=== PATIENT | female | born 1990 | race African-American/Black ===

== ENCOUNTER 2016-12-03 14:32 | Emergency (ER) | payer OTHER ==
[~2016-12-03] VITALS: Ht 162.6 cm; Wt 68.0 kg
[~2016-12-03 14:32] MED LIST: OXYC-323 PO
--- NOTE | 2016-12-03 14:41 | PHYS DOC ---
Past Medical History Past Medical History: No Pertinent History Past Surgical History: Other Additional Past Surgical Histo: ectopic Alcohol Use: None Drug Use: Marijuana Adult General Chief Complaint Chief Complaint: ABDOMINAL PAIN HPI HPI Patient is a 26 year old female presenting to the emergency department for evaluation of abdominal pain that has been going on for 7 days straight. She says it is in her lower abdomen diffusely and associated with nausea vomiting and constipation. She says it is sharp crampy pain and is present all the time and does not get better or worse with anything. She was seen at [facility] days ago and she reports having a CT scan that was unremarkable and was discharged with naproxen and Zofran. She says that her pain has persisted and worsened. She says that she is finishing her period but she denies any vaginal discharge or fevers chills dysuria or hematuria. She reports having similar pain in March of last year when she had her gallbladder taken out. She has also had several surgeries for ectopic . Review of Systems Review of Systems Constitutional: Denies fever or chills [] Eyes: Denies change in visual acuity, redness, or eye pain [] HENT: Denies nasal congestion or sore throat [] Respiratory: Denies cough or shortness of breath [] Cardiovascular: No additional information not addressed in HPI [] GI: + abdominal pain, nausea, vomiting. No bloody stools or diarrhea [] : Denies dysuria or hematuria [] Musculoskeletal: Denies back pain or joint pain [] Integument: Denies rash or skin lesions [] Neurologic: Denies headache, focal weakness or sensory changes [] Current Medications Current Medications Current Medications Medications (Trade) Dose Ordered Sig/Geoff Start Time Stop Time Status Last Admin Dose Admin Azithromycin 1000 mg 1,000 mg 1X ONCE 12/03/16 16:15 12/03/16 16:21 DC 12/03/16 16:40 1,000 MG Ceftriaxone Sodium/Sodium Chloride (Rocephin/Iv Sodium Chloride 0.9% 50ml) 50 ml @ 100 mls/hr Q24H 12/04/16 17:00 Ceftriaxone Sodium (Rocephin 1gm Ivpb For Omni) 50 ml @ 100 mls/hr 1X ONCE 12/03/16 16:30 12/03/16 16:59 DC 12/03/16 16:40 100 MLS/HR Diphenhydramine HCl 25 mg 25 mg 1X ONCE 12/03/16 16:30 12/03/16 16:31 DC 12/03/16 16:40 25 MG Iohexol (Omnipaque 240 Mg/ml) 50 ml 1X ONCE 12/03/16 15:30 12/03/16 15:31 DC 12/03/16 15:30 50 ML Iohexol 75 ml 75 ml 1X ONCE 12/03/16 15:30 12/03/16 15:31 DC 12/03/16 15:30 75 ML Ketorolac Tromethamine (Toradol) 30 mg 1X ONCE 12/03/16 15:00 12/03/16 15:12 DC 12/03/16 15:17 30 MG Morphine Sulfate 5 mg 1X ONCE 12/03/16 16:30 12/03/16 16:31 DC 12/03/16 16:30 5 MG Ondansetron HCl (Zofran) 8 mg 1X ONCE 12/03/16 15:00 12/03/16 15:12 DC 12/03/16 15:17 8 MG Potassium Chloride (Klor-Con) 40 meq 1X ONCE 12/03/16 17:15 12/03/16 17:16 DC 12/03/16 18:22 40 MEQ Prochlorperazine Edisylate (Compazine) 10 mg 1X ONCE 12/03/16 16:30 12/03/16 16:31 DC 12/03/16 16:40 10 MG Sodium Chloride (Iv Sodium Chloride 0.9% 1000ml Bag) 1,000 ml @ 0 mls/hr 1X ONCE 12/03/16 16:45 12/03/16 16:48 DC 12/03/16 18:21 1,000 MLS/HR Allergies Allergies Allergies Coded Allergies Type Severity Reaction Last Updated Verified oxycodone Allergy Intermediate 10/30/14 No peanut Allergy Intermediate 10/30/14 No Physical Exam Physical Exam Constitutional: Well developed, well nourished, no acute distress, non-toxic appearance. [] HENT: Normocephalic, atraumatic, bilateral external ears normal, oropharynx moist, no oral exudates, nose normal. [] Eyes: PERRLA, EOMI, conjunctiva normal, no discharge. [] Neck: Normal range of motion, no tenderness, supple, no stridor. [] Cardiovascular:Heart rate regular rhythm, no murmur [] Lungs & Thorax: Bilateral breath sounds clear to auscultation [] Abdomen: Bowel sounds normal, soft, positive diffuse lower abdominal tenderness with no rebound or guarding, no masses, no pulsatile masses. [employer] exam revealed thick yellow discharge. + CMT and L adnexal tenderness. Skin: Warm, dry, no erythema, no rash. [] Back: No tenderness, no CVA tenderness. [] Extremities: No tenderness, no cyanosis, no clubbing, ROM intact, no edema. [] Neurologic: Alert and oriented X 3, normal motor function, normal sensory function, no focal deficits noted. [] Current Patient Data Vital Signs Vital Signs Date Time Temp Pulse Resp B/P Pulse Ox O2 Delivery O2 Flow Rate FiO2 12/03/16 19:20 64 17 104/60 99 Room Air 12/03/16 14:46 98.4 98.4 Lab Values Laboratory Tests Test 12/03/16 13:44 12/03/16 14:30 12/03/16 15:00 POC Urine HCG, Qualitative Hcg negative (Negative) Urine Collection Type Unknown Urine Color Yuliana Urine Clarity Clear Urine pH 6.5 Urine Specific [place] >=1.030 Urine Protein 30mg/dL (NEG-TRACE) Urine Glucose (UA) Negativemg/dL (NEG) Urine Ketones (Stick) 40mg/dL (NEG) Urine Blood Negative (NEG) Urine Nitrite Negative (NEG) Urine Bilirubin Small (NEG) Urine Urobilinogen Dipstick 1.0mg/dL (0.2 mg/dL) Urine Leukocyte Esterase Negative (NEG) Urine RBC 0/HPF (0-2) Urine WBC 1-4/HPF (0-4) Urine Squamous Epithelial Cells Many/LPF Urine Bacteria Moderate/HPF (0-FEW) Urine Mucus Marked/LPF White Blood Count 6.8x10^3/uL (4.0-11.0) Red Blood Count 5.01x10^6/uL (3.50-5.40) Hemoglobin 14.9g/dL (12.0-15.5) Hematocrit 44.9% (36.0-47.0) Mean Corpuscular Volume 90fL (79-100) Mean Corpuscular Hemoglobin 30pg (25-35) Mean Corpuscular Hemoglobin Concent 33g/dL (31-37) Red Cell Distribution Width 13.1% (11.5-14.5) Platelet Count 262x10^3/uL (140-400) Neutrophils (%) (Auto) 55% (31-73) Lymphocytes (%) (Auto) 32% (24-48) Monocytes (%) (Auto) 11% (0-9) H Eosinophils (%) (Auto) 2% (0-3) Basophils (%) (Auto) 0% (0-3) Neutrophils # (Auto) 3.8x10^3uL (1.8-7.7) Lymphocytes # (Auto) 2.1x10^3/uL (1.0-4.8) Monocytes # (Auto) 0.8x10^3/uL (0.0-1.1) Eosinophils # (Auto) 0.1x10^3/uL (0.0-0.7) Basophils # (Auto) 0.0x10^3/uL (0.0-0.2) Sodium Level 138mmol/L (136-145) Potassium Level 3.4mmol/L (3.5-5.1) L Chloride Level 101mmol/L (98-107) Carbon Dioxide Level 27mmol/L (21-32) Anion Gap 10 (6-14) Blood Urea Nitrogen 13mg/dL (7-20) Creatinine 0.9mg/dL (0.6-1.0) Estimated GFR (Cockcroft-Gault) 93.1 BUN/Creatinine Ratio 14 (6-20) Glucose Level 91mg/dL (70-99) Calcium Level 9.1mg/dL (8.5-10.1) Total Bilirubin 0.8mg/dL (0.2-1.0) Aspartate Amino Transferase (AST) 29U/L (15-37) Alanine Aminotransferase (ALT) 58U/L (14-59) Alkaline Phosphatase 47U/L (46-116) Total Protein 8.1g/dL (6.4-8.2) Albumin 4.0g/dL (3.4-5.0) Albumin/Globulin Ratio 1.0 (1.0-1.7) Lipase 166U/L (73-393) Laboratory Tests 12/03/16 15:00 Laboratory Tests 12/03/16 15:00 Microbiology 12/03/16 Wet Prep - Final, Complete Microbiology 12/03/16 Wet Prep - Final, Complete EKG EKG [] Radiology/Procedures Radiology/Procedures PROCEDURE CT of the abdomen and pelvis with contrast HISTORY Lower abdominal pain for 6 days. Previous cholecystectomy and history of stent. TECHNIQUE Following injection of 75 cc of Omnipaque 300 IV and administration of oral contrast, images were obtained through the abdomen and pelvis. One or more of the following individualized dose reduction techniques were utilized for this examination: 1. Automated exposure control; 2. Adjustment of the mA and/or kV according to patient size; 3. Use of iterative reconstruction technique. COMPARISON December 23, 2015 exam FINDINGS The liver and spleen are normal in size without focal lesions. The pancreas, adrenal glands, and kidneys are unremarkable. No free fluid or adenopathy is seen. There has been a cholecystectomy. The bowel loops are unremarkable. The appendix is normal. No pelvic mass is seen. The uterus is unremarkable. IMPRESSION Negative CT of the abdomen and pelvis with contrast. Electronically signed by: Jayla Pinedo (Dec 03, 2016 16:51:04) DICTATED and SIGNED BY: JAYLA PINEDO MD DATE: 12/03/16 165 PROCEDURE Pelvic ultrasound with endovaginal imaging. HISTORY Lower abdominal pain. TECHNIQUE Transabdominal imaging was performed for initial evaluation of the pelvis. Endovaginal imaging was performed for optimal characterization of the endometrium. COMPARISON CT abdomen pelvis December 03, 2016. FINDINGS Transabdominal imaging: Uterus measures 8.1 centimeters in length. Endometrial thickness is 5 millimeters, within normal limits. No uterine masses are seen. Neither ovary is well seen with transabdominal imaging. Endovaginal imaging: Uterus measures 7.4 centimeters in length. No uterine masses are seen. Endometrial thickness is within normal limits at 1 millimeter. Right ovary measures 2.3 x 1.6 x 2.7 centimeters and demonstrates a few physiologic follicles. Left ovary measures 2.6 x 1.8 x 1.7 centimeters and demonstrates several small physiologic follicles. Both ovaries demonstrate normal vascular flow upon Doppler interrogation and are without evidence of torsion. Trace amount of physiologic free fluid is present in the pelvis. IMPRESSION Unremarkable pelvic ultrasound. Electronically signed by: Steven Preciado MD (Dec 03, 2016 19:39:51) DICTATED and SIGNED BY: STEVEN PRECIADO MD DATE: 04/29/17 1939 Course & Med Decision Making Course & Med Decision Making Patient with nonspecific abdominal pain nausea and vomiting. She is crying and appears uncomfortable so I will get a CT with IV and oral contrast check labs and urine do a pelvic exam and reassess. Patient appears to have possible pelvic inflammatory disease on pelvic exam because she has a cervical motion tenderness abnormal discharge and left adnexal tenderness. CT and ultrasound showed no acute surgical pathology. Labs are all very unremarkable as well. She was given multiple doses of pain medications and her repeat abdominal exams are now benign and she is drinking fluids and taking her pills with no difficulty. Given she appears well with normal vital signs benign physical exam and workup she'll be discharged with [place] Zofran Flagyl and told to follow with PCP and/or GI in the next 2-3 days and come back to the ER sooner with any worsening pain fevers vomiting or vaginal concerns. Patient aware and agreeable with plan and verbalized understanding of the above instructions. Dragon Disclaimer Dragon Disclaimer This electronic medical record was generated, in whole or in part, using a voice recognition dictation system. Departure Departure Impression: Primary Impression: Abdominal pain Additional Impressions: Nausea and vomiting Bacterial vaginitis Hypokalemia due to loss of potassium Disposition: HOME, SELF-CARE Condition: GOOD Referrals: NO PCP (PCP) VANCE PERALTA MD Patient Instructions: Bacterial Vaginosis Scripts Metronidazole (Flagyl)500 Mg Tablet1 Tab PO BID #14 TAB Prov:ADRIEL DE SOUZA DO 12/03/16 Ondansetron (Zofran Odt)4 Mg Tab.rapdis1 Tab SL Q8HRS #10 TAB Prov:ADRIEL DE SOUZA DO 12/03/16 Hydrocodone/Apap 5-325 ([place] 5-325 Tablet)1 Each Tablet1 Tab PO PRN Q6HRS PRN PAIN #14 TAB Prov:ADRIEL DE SOUZA DO 12/03/16 Problem Qualifiers Primary Impression: Abdominal pain Abdominal location: lower abdomen, unspecified Qualified Code: R10.30 - Lower abdominal pain, unspecified Additional Impressions: Nausea and vomiting Vomiting type: unspecified Vomiting Intractability: unspecified Qualified Code: R11.2 - Nausea with vomiting, unspecified ADRIEL DE SOUZA DO Dec 03, 2016 14:41
[2016-12-03] MEDS ORDERED: ONDANSETRON PF 4 MG/2 ML VIAL. IV ONE (15:00)
[2016-12-03] MEDS ORDERED: MORPHINE SULFATE 10 MG/ML VIAL. IV ONE ×2 (15:00→16:30)
[2016-12-03] MEDS ORDERED: KETOROLAC TROMETHAMINE 30 MG/ML INJ. IV ONE (15:00)
[2016-12-03] MEDS ORDERED: IV NORMAL SALINE 1000ML BAG 1,000 ML IV ONE ×2 (15:00→16:45)
[2016-12-03 15:14] LABS: BASO % 0 % (0-3); EOS % 2 % (0-3); HEMATOCRIT 44.9 % (36.0-47.0); HEMOGLOBIN 14.9 g/dL (12.0-15.5); LYMPH # 2.1 x10^3/uL (1.0-4.8); LYMPH % 32 % (24-48); MEAN CORPUSCULAR HEMOGLOBIN 30 pg (25-35); MEAN CORPUSCULAR HGB CONC 33 g/dL (31-37); MEAN CORPUSCULAR VOLUME 90 fL (79-100); MONO % 11 % (0-9); NEUT % 55 % (31-73); PLATELET COUNT 262 x10^3/uL (140-400); RED BLOOD COUNT 5.01 x10^6/uL (3.50-5.40); RED CELL DISTRIBUTION WIDTH 13.1 % (11.5-14.5); WHITE BLOOD COUNT 6.8 x10^3/uL (4.0-11.0)
[2016-12-03 15:17] LABS: BILIRUBIN,URINE SMALL (NEG); GLUCOSE,URINE NEGATIVE (NEG); NITRITE,URINE NEGATIVE (NEG); PH,URINE 6.5; PROTEIN,URINE 30 mg/dL (NEG-TRACE)
[2016-12-03] MEDS ORDERED: IOHEXOL 300 MG/ML 75 ML VIAL IV ONE (15:30)
[2016-12-03] MEDS ORDERED: IOHEXOL 240 MG/ML 50ML VIAL. IV ONE (15:30)
[2016-12-03 15:35] LABS: CALCIUM 9.1 mg/dL (8.5-10.1); CREATININE 0.9 mg/dL (0.6-1.0); GFR 93.1; POTASSIUM 3.4 mmol/L (3.5-5.1)
[2016-12-03 15:40] LABS: TOTAL BILIRUBIN 0.8 mg/dL (0.2-1.0); TOTAL PROTEIN 8.1 g/dL (6.4-8.2)
[2016-12-03 15:42] LABS: BACTERIA,URINE MODERATE /HPF (0-FEW); RBC,URINE 0 /HPF (0-2); SQUAMOUS EPITHELIAL CELL,UR MANY /LPF
[2016-12-03] MEDS ORDERED: AZITHROMYCIN 250 MG TABLET. PO ONE (16:15)
[2016-12-03] MEDS ORDERED: diphenhydrAMINE 50 MG/ML VIAL IVP ONE (16:30)
[2016-12-03] MEDS ORDERED: PROCHLORPERAZINE 10 MG/2 ML VIAL. IV ONE (16:30)
--- NOTE | 2016-12-03 16:52 | RAD ---
PROCEDURE CT of the abdomen and pelvis with contrast HISTORY Lower abdominal pain for 6 days. Previous cholecystectomy and history of stent. TECHNIQUE Following injection of 75 cc of Omnipaque 300 IV and administration of oral contrast, images were obtained through the abdomen and pelvis. One or more of the following individualized dose reduction techniques were utilized for this examination: 1. Automated exposure control; 2. Adjustment of the mA and/or kV according to patient size; 3. Use of iterative reconstruction technique. COMPARISON December 23, 2015 exam FINDINGS The liver and spleen are normal in size without focal lesions. The pancreas, adrenal glands, and kidneys are unremarkable. No free fluid or adenopathy is seen. There has been a cholecystectomy. The bowel loops are unremarkable. The appendix is normal. No pelvic mass is seen. The uterus is unremarkable. IMPRESSION Negative CT of the abdomen and pelvis with contrast. Electronically signed by: Jayla Braswell (Dec 03, 2016 16:51:04)
[2016-12-03] MEDS ORDERED: POTASSIUM CHLORIDE 20 MEQ TABLET.ER. PO ONE (17:15)
[2016-12-03 19:20] VITALS: BP 104/60
--- NOTE | 2016-12-03 19:41 | RAD ---
PROCEDURE Pelvic ultrasound with endovaginal imaging. HISTORY Lower abdominal pain. TECHNIQUE Transabdominal imaging was performed for initial evaluation of the pelvis. Endovaginal imaging was performed for optimal characterization of the endometrium. COMPARISON CT abdomen pelvis December 03, 2016. FINDINGS Transabdominal imaging: Uterus measures 8.1 centimeters in length. Endometrial thickness is 5 millimeters, within normal limits. No uterine masses are seen. Neither ovary is well seen with transabdominal imaging. Endovaginal imaging: Uterus measures 7.4 centimeters in length. No uterine masses are seen. Endometrial thickness is within normal limits at 1 millimeter. Right ovary measures 2.3 x 1.6 x 2.7 centimeters and demonstrates a few physiologic follicles. Left ovary measures 2.6 x 1.8 x 1.7 centimeters and demonstrates several small physiologic follicles. Both ovaries demonstrate normal vascular flow upon Doppler interrogation and are without evidence of torsion. Trace amount of physiologic free fluid is present in the pelvis. IMPRESSION Unremarkable pelvic ultrasound. Electronically signed by: Steven Corea MD (Dec 03, 2016 19:39:51)
[2016-12-03] MEDS ORDERED: ONDA4TAB10 SL (19:57)
[2016-12-03] MEDS ORDERED: HYDR-971 PO (19:57)
[2016-12-03] MEDS ORDERED: METR500T PO (19:57)
== END 2016-12-03 20:03 | disposition home or self-care (01) ==
LOC: ER 14:32
DX: R10.30 Lower abdominal pain, unspecified (principal); R11.2 Nausea with vomiting, unspecified; F12.10 Cannabis abuse, uncomplicated; Z88.5 Allergy status to narcotic agent; Z91.010 Allergy to peanuts
CPT/HCPCS: 74177; 76830; 76856; 80053; 81001; 81025; 83690; 85027; J0690; J0780; J1200; J1885; J2270; J2405; J7030; Q0111; Q0144; Q9966; Q9967; 87086; 96365; 96375; 96376; 99285-25

== ENCOUNTER 2017-03-21 12:49 | Emergency (ER) | payer OTHER ==
[~2017-03-21] VITALS: Ht 162.6 cm; Wt 68.0 kg
[~2017-03-21 12:49] MED LIST changes: +HYDR-971 PO; +METR500T PO; +ONDA4TAB10 SL
[2017-03-21 13:12] VITALS: BP 121/64
[2017-03-21] MEDS ORDERED: LIDOCAINE 1% / SOD BICARB 8.4% 20 ML VIAL. IJ ONE (13:15)
[2017-03-21] MEDS ORDERED: SULF1TAB24 PO (14:26)
--- NOTE | 2017-03-21 14:26 | PHYS DOC ---
Past Medical History Past Medical History: Other Additional Past Medical Histor: "TWISTED COLON" Past Surgical History: Cholecystectomy, Other Additional Past Surgical Histo: ectopic Alcohol Use: Rarely Drug Use: Marijuana Adult General Chief Complaint Chief Complaint: ABSCESS HPI HPI Patient is a 26 year old female who presents with an abscess on the left lower extremity for the last 3 weeks. Patient states it opened up and drained a couple days ago. Review of Systems Review of Systems Constitutional: Denies fever or chills [] Musculoskeletal: Denies back pain or joint pain [] Integument: Abscess to the left lower extremity Neurologic: Denies headache, focal weakness or sensory changes [] Current Medications Current Medications Current Medications Medications (Trade) Dose Ordered Sig/Geoff Start Time Stop Time Status Last Admin Dose Admin Lidocaine/Sodium Bicarbonate (Buffered Lidocaine 1%) 20 ml 1X ONCE 03/21/17 13:15 03/21/17 13:16 DC 03/21/17 13:17 20 ML Allergies Allergies Allergies Coded Allergies Type Severity Reaction Last Updated Verified oxycodone Allergy Intermediate 10/30/14 No peanut Allergy Intermediate 10/30/14 No Physical Exam Physical Exam Constitutional: Well developed, well nourished, no acute distress, non-toxic appearance. [] Skin: Dorsal aspect of the Right thigh with 2 indurated areas approximately 3 x 3 cm and 1 x 1 cm. Both of them have surrounding cellulitis. Both of them a warm fluctuant and very tender to touch. The 1 x 1 cm abscess is opened up and draining. Extremities: No tenderness, no cyanosis, no clubbing, ROM intact, no edema. [] Neurologic: Alert and oriented X 3, normal motor function, normal sensory function, no focal deficits noted. [] Psychologic: Affect normal, judgement normal, mood normal. [] Current Patient Data Vital Signs Vital Signs Date Time Temp Pulse Resp B/P (MAP) Pulse Ox O2 Delivery O2 Flow Rate FiO2 03/21/17 13:12 98.2 83 18 99 Room Air 98.2 EKG EKG [] Radiology/Procedures Radiology/Procedures Indication: abscess of the right thigh Procedure: The patient was positioned appropriately. Local anesthesia was 1% buffered lidocaine. An incision was then made over the apex of each lesion and mild to moderate amount of bloody yellow material was expressed. The drainage cavity was irrigated and covered with sterile gauze. The patients tetanus status updated as needed. The patient tolerated the procedure well. Complications: none.[] Course & Med Decision Making Course & Med Decision Making Pertinent Labs and Imaging studies reviewed. (See chart for details) Patient has 2 abscesses on the right lower extremity that were drained by me as noted in procedures. Tetanus up-to-date. Discharged with Bactrim. Lauren Disclaimer Dragtamara Disclaimer This electronic medical record was generated, in whole or in part, using a voice recognition dictation system. Departure Departure Impression: Primary Impression: Abscess of right lower extremity Disposition: HOME, SELF-CARE Condition: STABLE Referrals: NO PCP (PCP) Follow-up with your doctor in one week Patient Instructions: Abscess, Care After Additional Instructions: You had two abscesses on your right lower extremity that were drained in the Ed. Continue to apply warm compresses to the area twice a day. Complete your oral antibiotics. Follow-up with your doctor in 1-2 weeks. Come back to the ED if symptoms worsen. Scripts Sulfamethoxazole/Trimethoprim (BACTRIM DS TABLET) 1 Each Tablet 1 TAB PO BID, #20 TAB Prov: SUN LI APRN 03/21/17 SUN LI APRN Mar 21, 2017 14:26
== END 2017-03-21 14:27 | disposition home or self-care (01) ==
LOC: ER 12:49
DX: L02.415 Cutaneous abscess of right lower limb (principal)
CPT/HCPCS: 10061; 99284-25

== ENCOUNTER 2017-05-22 14:02 | Emergency (ER) | payer OTHER ==
[~2017-05-22] VITALS: Ht 162.6 cm; Wt 77.1 kg
[~2017-05-22 14:02] MED LIST changes: +SULF1TAB24 PO
[2017-05-22] MEDS ORDERED: IV NORMAL SALINE 1000ML BAG 1,000 ML IV ONE (15:15)
[2017-05-22] MEDS ORDERED: ONDANSETRON PF 4 MG/2 ML VIAL. IV ONE (15:15)
[2017-05-22 15:18] LABS: BILIRUBIN,URINE SMALL (NEG); GLUCOSE,URINE NEGATIVE (NEG); NITRITE,URINE NEGATIVE (NEG); PROTEIN,URINE 30 mg/dL (NEG-TRACE); UROBILINOGEN,URINE 0.2 mg/dL (0.2 mg/dL)
[2017-05-22 15:32] LABS: CALCIUM 9.9 mg/dL (8.5-10.1); CREATININE 0.8 mg/dL (0.6-1.0); GFR 105.8; POTASSIUM 3.7 mmol/L (3.5-5.1)
[2017-05-22 15:42] LABS: TOTAL BILIRUBIN 0.6 mg/dL (0.2-1.0); TOTAL PROTEIN 8.1 g/dL (6.4-8.2)
[2017-05-22 15:55] LABS: SQUAMOUS EPITHELIAL CELL,UR MOD /LPF
[2017-05-22 15:56] LABS: BACTERIA,URINE 0 /HPF (0-FEW); RBC,URINE 0 /HPF (0-2); WBC,URINE OCC /HPF (0-4)
[2017-05-22 16:07] LABS: BASO % 0 % (0-3); EOS % 0 % (0-3); HEMOGLOBIN 14.6 g/dL (12.0-15.5); LYMPH # 1.6 x10^3/uL (1.0-4.8); LYMPH % 22 % (24-48); MEAN CORPUSCULAR HEMOGLOBIN 29 pg (25-35); MEAN CORPUSCULAR HGB CONC 33 g/dL (31-37); MEAN CORPUSCULAR VOLUME 87 fL (79-100); MONO % 9 % (0-9); NEUT % 68 % (31-73); PLATELET COUNT 256 x10^3/uL (140-400); RED BLOOD COUNT 5.07 x10^6/uL (3.50-5.40); RED CELL DISTRIBUTION WIDTH 13.7 % (11.5-14.5); WHITE BLOOD COUNT 7.1 x10^3/uL (4.0-11.0)
--- NOTE | 2017-05-22 16:08 | RAD ---
Indication: Right flank pain. Technique: Axial images and coronal and sagittal reformatted images are provided. Comparison is from December 03, 2016. One or more of the following individualized dose reduction techniques were utilized for this examination: 1. Automated exposure control 2. Adjustment of the mA and/or kV according to patient size 3. Use of iterative reconstruction technique Findings: The lung bases are clear. There is no pleural effusion. The heart is not enlarged. Solid organ evaluation is limited without contrast. Liver is unremarkable. Gallbladder is surgically absent. Spleen is not enlarged. Pancreas and adrenals are unremarkable. No obstructing or nonobstructing calculus is identified. Neither ureter is dilated. Neither ureter can be followed in its entirety. Aorta is normal caliber. Lack of IV or oral contrast and its evaluation of bowel. There is no small bowel obstruction or mural thickening. Normal appendix is noted. There are a few diverticula in the colon. There are no findings of diverticulitis. There is no bladder calculus. There are calcified phleboliths. There is no adnexal mass. There is no free pelvic fluid. Impression: 1. No acute abdominal findings. 2. No obstructing or nonobstructing renal calculus. 3. Prior cholecystectomy.
[2017-05-22] MEDS ORDERED: ONDA4TAB10 SL (17:25)
--- NOTE | 2017-05-22 17:25 | PHYS DOC ---
Past Medical History Past Medical History: Other Additional Past Medical Histor: "TWISTED COLON" Past Surgical History: Cholecystectomy, Other Additional Past Surgical Histo: Ectopic,Twisted colon Additional Information: Smokes about 2-3 cigs/day. Alcohol Use: Rarely Drug Use: Marijuana Social History Narrative: Last smoked Monday-5 days ago. Adult General Chief Complaint Chief Complaint: ABDOMINAL PAIN HPI HPI Patient is a 27 year old F who presents with abdominal pain for the past 3 days. Patient complains of increasing abdominal pain with nausea and vomiting and no diarrhea. Patient states the abdominal pain is to her lower abdomen and nothing increases or decreases the pain. Patient denies any fevers. Patient denies any dysuria. Patient states she's had a previous appendectomy and ectopic . Patient denies any chest pain shortness of breath. Patient has no other complaints. Review of Systems Review of Systems GEN: Denies fevers, chills, sweats HEENT: Denies blurred vision, sore throat CV: Denies chest pain RESP: Denies shortness of air, cough GI: Abdominal pain with nausea and vomiting NEURO: Denies confusion, dizziness MSK: Denies weakness, joint pain/swelling Current Medications Current Medications Current Medications Medications (Trade) Dose Ordered Sig/Geoff Start Time Stop Time Status Last Admin Dose Admin Ondansetron HCl (Zofran) 4 mg 1X ONCE 05/22/17 15:15 05/22/17 15:16 DC 05/22/17 16:31 4 MG Sodium Chloride 1,000 ml @ 1,000 mls/hr 1X ONCE 05/22/17 15:15 05/22/17 16:14 DC 05/22/17 16:31 1,000 MLS/HR Allergies Allergies Allergies Coded Allergies Type Severity Reaction Last Updated Verified Iodinated Contrast- Oral and IV Dye Allergy Intermediate Shortness of breath 05/22/17 Yes oxycodone Allergy Intermediate 10/30/14 No peanut Allergy Intermediate 10/30/14 No Physical Exam Physical Exam GEN.: No apparent distress. Alert and oriented. HEENT: Head is normocephalic, atraumatic NECK: Supple. LUNGS: CTAB. HEART: RRR, S1, S2 present. Peripheral pulses intact ABDOMEN: Soft, mild tenderness palpation to the left lower and right lower quadrant with no rebound tenderness, no abdominal distention and no guarding. Positive bowel sounds. EXTREMITIES: Without any cyanosis. NEUROLOGIC: Normal speech, normal tone PSYCHIATRIC: Normal affect, normal mood. SKIN: No ulcerations Current Patient Data Vital Signs Vital Signs Date Time Temp Pulse Resp B/P (MAP) Pulse Ox O2 Delivery O2 Flow Rate FiO2 05/22/17 16:32 56 16 101/60 (74) 98 Room Air 05/22/17 14:18 98.8 98.8 Lab Values Laboratory Tests Test 05/22/17 14:19 05/22/17 14:22 05/22/17 14:41 05/22/17 15:50 Urine Collection Type Unknown Urine Color Yuliana Urine Clarity Cloudy Urine pH 6.0 Urine Specific [place] 1.025 Urine Protein 30 mg/dL (NEG-TRACE) Urine Glucose (UA) Negative mg/dL (NEG) Urine Ketones (Stick) >=80 mg/dL (NEG) Urine Blood Moderate (NEG) Urine Nitrite Negative (NEG) Urine Bilirubin Small (NEG) Urine Urobilinogen Dipstick 0.2 mg/dL (0.2 mg/dL) Urine Leukocyte Esterase Small (NEG) Urine RBC 0 /HPF (0-2) Urine WBC Occ /HPF (0-4) Urine Squamous Epithelial Cells Mod /LPF Urine Bacteria 0 /HPF (0-FEW) Urine Mucus Marked /LPF POC Urine HCG, Qualitative Hcg negative (Negative) Sodium Level 137 mmol/L (136-145) Potassium Level 3.7 mmol/L (3.5-5.1) Chloride Level 99 mmol/L (98-107) Carbon Dioxide Level 23 mmol/L (21-32) Anion Gap 15 (6-14) H Blood Urea Nitrogen 13 mg/dL (7-20) Creatinine 0.8 mg/dL (0.6-1.0) Estimated GFR (Cockcroft-Gault) 105.8 BUN/Creatinine Ratio 16 (6-20) Glucose Level 95 mg/dL (70-99) Calcium Level 9.9 mg/dL (8.5-10.1) Total Bilirubin 0.6 mg/dL (0.2-1.0) Aspartate Amino Transferase (AST) 25 U/L (15-37) Alanine Aminotransferase (ALT) 34 U/L (14-59) Alkaline Phosphatase 48 U/L (46-116) Total Protein 8.1 g/dL (6.4-8.2) Albumin 4.0 g/dL (3.4-5.0) Albumin/Globulin Ratio 1.0 (1.0-1.7) Lipase 226 U/L (73-393) White Blood Count 7.1 x10^3/uL (4.0-11.0) Red Blood Count 5.07 x10^6/uL (3.50-5.40) Hemoglobin 14.6 g/dL (12.0-15.5) Hematocrit 44.0 % (36.0-47.0) Mean Corpuscular Volume 87 fL (79-100) Mean Corpuscular Hemoglobin 29 pg (25-35) Mean Corpuscular Hemoglobin Concent 33 g/dL (31-37) Red Cell Distribution Width 13.7 % (11.5-14.5) Platelet Count 256 x10^3/uL (140-400) Neutrophils (%) (Auto) 68 % (31-73) Lymphocytes (%) (Auto) 22 % (24-48) L Monocytes (%) (Auto) 9 % (0-9) Eosinophils (%) (Auto) 0 % (0-3) Basophils (%) (Auto) 0 % (0-3) Neutrophils # (Auto) 4.9 x10^3uL (1.8-7.7) Lymphocytes # (Auto) 1.6 x10^3/uL (1.0-4.8) Monocytes # (Auto) 0.6 x10^3/uL (0.0-1.1) Eosinophils # (Auto) 0.0 x10^3/uL (0.0-0.7) Basophils # (Auto) 0.0 x10^3/uL (0.0-0.2) Laboratory Tests 05/22/17 15:50 Laboratory Tests 05/22/17 14:41 EKG EKG [] Radiology/Procedures Radiology/Procedures CT scan abdomen pelvis: Impression: 1. No acute abdominal findings. 2. No obstructing or nonobstructing renal calculus. 3. Prior cholecystectomy.[] Course & Med Decision Making Course & Med Decision Making Pertinent Labs and Imaging studies reviewed. (See chart for details) ED course: Patient was seen and examined in the emergency room CBC, CMP, lipase, UA, and urine , CT scan abdomen pelvis without contrast were ordered along with 1 L normal saline and for Motrin and Zofran. 1720: Patient was reevaluated in which she was feeling much better and is ready go home. Discussed CT findings and lab results with the patient and recommended short-term follow-up with PCP in one to 2 days. Stated that we would send the patient home with some Zofran for her nausea and vomiting. MDM: After reviewing the chart, CC/HPI/PMH, physical exam, [lab results], [ radiological results], I do not believe the patient has an intra-abdominal emergency warranting further workup and/or admission at this time. I believe the patient is stable for discharge with symptomatic treatment with Zofran ODT and short-term follow-up with her PCP in one to 2 days. Additional verbal discharge instructions were provided to the patient and that if symptoms get worse or any new symptoms arise that are worrisome to the patient she is to return to the emergency room immediately [] Dragon Disclaimer Dragon Disclaimer This electronic medical record was generated, in whole or in part, using a voice recognition dictation system. Departure Departure Impression: Primary Impression: Abdominal pain Additional Impression: Nausea and vomiting Disposition: 01 HOME, SELF-CARE Condition: STABLE Referrals: NO PCP (PCP) Patient Instructions: Nausea and Vomiting, [id number] Additional Instructions: Please follow-up with your family physician in the next one to 2 days Scripts Ondansetron (ZOFRAN ODT) 4 Mg Tab.rapdis 1 TAB SL Q8HRS, #10 TAB Prov: MARTHA HEART DO 05/22/17 Problem Qualifiers MARTHA HEART DO May 22, 2017 17:25
[2017-05-22 18:20] VITALS: BP 106/58
== END 2017-05-22 18:26 | disposition home or self-care (01) ==
LOC: ER 14:02
DX: R10.31 Right lower quadrant pain (principal); R11.2 Nausea with vomiting, unspecified; Z90.49 Acquired absence of other specified parts of digestive tract; F17.210 Nicotine dependence, cigarettes, uncomplicated; Z91.041 Radiographic dye allergy status; Z88.5 Allergy status to narcotic agent; Z91.010 Allergy to peanuts
CPT/HCPCS: 36415; 74176; 80053; 81001; 81025; 83690; 85025; 87086; 96361; 96374; 99285; J2405; J7030

== ENCOUNTER 2017-05-23 11:37 | Inpatient (IN) | payer OTHER ==
[~2017-05-23] VITALS: Ht 162.6 cm; Wt 72.6 kg
[2017-05-23] MEDS ORDERED: IV NORMAL SALINE 1000ML BAG 1,000 ML IV SCH (12:09)
--- NOTE | 2017-05-23 12:09 | PHYS DOC ---
Past Medical History Past Medical History: Other Additional Past Medical Histor: "TWISTED COLON" Past Surgical History: Cholecystectomy, Other Additional Past Surgical Histo: Ectopic,Twisted colon Alcohol Use: Rarely Drug Use: Marijuana Adult General Chief Complaint Chief Complaint: ABDOMINAL PAIN HPI HPI Patient is a 27 year old -[place] female who presents with left upper quadrant pain. She states his been going on for several days and the she was seen yesterday had a CAT scan that was negative. She states the pain came back. This morning the epigastric versus left quadrant, she states she's had some nausea vomiting without any blood in it, she's also had some liquid stools. She denies any fevers or chills. She states she's had her gallbladder removed in the past in addition to an ectopic . Review of Systems Review of Systems Constitutional: Denies fever or chills [] Eyes: Denies change in visual acuity, redness, or eye pain [] HENT: Denies nasal congestion or sore throat [] Respiratory: Denies cough or shortness of breath [] Cardiovascular: No additional information not addressed in HPI [] GI: Positive for abdominal pain, nausea, vomiting, Denies bloody stools or diarrhea [] : Denies dysuria or hematuria [] Musculoskeletal: Denies back pain or joint pain [] Integument: Denies rash or skin lesions [] Neurologic: Denies headache, focal weakness or sensory changes [] Endocrine: Denies polyuria or polydipsia [] Current Medications Current Medications Current Medications Medications (Trade) Dose Ordered Sig/Geoff Start Time Stop Time Status Last Admin Dose Admin Dextrose/Sodium Chloride 1,000 ml @ 100 mls/hr 1X ONCE 05/23/17 14:45 05/24/17 00:44 05/23/17 14:45 100 MLS/HR Morphine Sulfate 4 mg PRN Q2HR PRN 05/23/17 14:45 05/24/17 14:44 Ondansetron HCl (Zofran) 4 mg PRN Q8HRS PRN 05/23/17 14:45 05/24/17 14:44 Sodium Chloride 1,000 ml @ 1,000 mls/hr Q1H 05/23/17 12:09 05/23/17 13:08 DC 05/23/17 12:19 1,000 MLS/HR Allergies Allergies Allergies Coded Allergies Type Severity Reaction Last Updated Verified Iodinated Contrast- Oral and IV Dye Allergy Intermediate Shortness of breath 05/22/17 Yes oxycodone Allergy Intermediate 10/30/14 No peanut Allergy Intermediate 10/30/14 No Physical Exam Physical Exam Constitutional: Well developed, well nourished, no acute distress, non-toxic appearance. [] HENT: Normocephalic, atraumatic, bilateral external ears normal, oropharynx moist, no oral exudates, nose normal. [] Eyes: PERRLA, EOMI, conjunctiva normal, no discharge. [] Neck: Normal range of motion, no tenderness, supple, no stridor. [] Cardiovascular:Heart rate regular rhythm, no murmur [] Lungs & Thorax: Bilateral breath sounds clear to auscultation [] Abdomen: Bowel sounds normal, soft, mild tender palpation left upper quadrant, no rebound or guarding, no masses, no pulsatile masses. [] Skin: Warm, dry, no erythema, no rash. [] Back: No tenderness, no CVA tenderness. [] Extremities: No tenderness, no cyanosis, no clubbing, ROM intact, no edema. [] Neurologic: Alert and oriented X 3, normal motor function, normal sensory function, no focal deficits noted. [] Psychologic: Affect normal, judgement normal, mood normal. [] Current Patient Data Vital Signs Vital Signs Date Time Temp Pulse Resp B/P (MAP) Pulse Ox O2 Delivery O2 Flow Rate FiO2 05/23/17 15:01 63 20 105/69 (81) 100 Room Air 05/23/17 12:10 97.7 97.7 Lab Values Laboratory Tests Test 05/23/17 12:00 05/23/17 12:04 05/23/17 12:05 Urine Collection Type Unknown Urine Color Yuliana Urine Clarity Cloudy Urine pH 6.0 Urine Specific [place] >=1.030 Urine Protein 30 mg/dL (NEG-TRACE) Urine Glucose (UA) Negative mg/dL (NEG) Urine Ketones (Stick) >=80 mg/dL (NEG) Urine Blood Large (NEG) Urine Nitrite Negative (NEG) Urine Bilirubin Small (NEG) Urine Urobilinogen Dipstick 0.2 mg/dL (0.2 mg/dL) Urine Leukocyte Esterase Trace (NEG) Urine RBC 20-40 /HPF (0-2) Urine WBC 1-4 /HPF (0-4) Urine Squamous Epithelial Cells Few /LPF Urine Bacteria Few /HPF (0-FEW) Urine Mucus Marked /LPF Urine Opiates Screen Neg (NEG) Urine Methadone Screen Neg (NEG) Urine Barbiturates Neg (NEG) Urine Phencyclidine Screen Neg (NEG) Urine Amphetamine/Methamphetamine Neg (NEG) Urine Benzodiazepines Screen Neg (NEG) Urine Cocaine Screen Neg (NEG) Urine Cannabinoids Screen Pos (NEG) Urine Ethyl Alcohol Neg (NEG) POC Urine HCG, Qualitative Hcg negative (Negative) White Blood Count 8.1 x10^3/uL (4.0-11.0) Red Blood Count 5.33 x10^6/uL (3.50-5.40) Hemoglobin 15.6 g/dL (12.0-15.5) H Hematocrit 46.5 % (36.0-47.0) Mean Corpuscular Volume 87 fL (79-100) Mean Corpuscular Hemoglobin 29 pg (25-35) Mean Corpuscular Hemoglobin Concent 34 g/dL (31-37) Red Cell Distribution Width 13.8 % (11.5-14.5) Platelet Count 297 x10^3/uL (140-400) Neutrophils (%) (Auto) 72 % (31-73) Lymphocytes (%) (Auto) 19 % (24-48) L Monocytes (%) (Auto) 8 % (0-9) Eosinophils (%) (Auto) 0 % (0-3) Basophils (%) (Auto) 0 % (0-3) Neutrophils # (Auto) 5.9 x10^3uL (1.8-7.7) Lymphocytes # (Auto) 1.5 x10^3/uL (1.0-4.8) Monocytes # (Auto) 0.7 x10^3/uL (0.0-1.1) Eosinophils # (Auto) 0.0 x10^3/uL (0.0-0.7) Basophils # (Auto) 0.0 x10^3/uL (0.0-0.2) Prothrombin Time 12.9 SEC (11.7-14.0) Prothrombin Time INR 1.0 (0.8-1.1) PTT 30 SEC (24-38) Sodium Level 139 mmol/L (136-145) Potassium Level 3.3 mmol/L (3.5-5.1) L Chloride Level 100 mmol/L (98-107) Carbon Dioxide Level 25 mmol/L (21-32) Anion Gap 14 (6-14) Blood Urea Nitrogen 14 mg/dL (7-20) Creatinine 1.0 mg/dL (0.6-1.0) Estimated GFR (Cockcroft-Gault) 81.7 Glucose Level 102 mg/dL (70-99) H Calcium Level 9.6 mg/dL (8.5-10.1) Total Bilirubin 0.6 mg/dL (0.2-1.0) Direct Bilirubin 0.2 mg/dL (0.0-0.2) Aspartate Amino Transferase (AST) 43 U/L (15-37) H Alanine Aminotransferase (ALT) 65 U/L (14-59) H Alkaline Phosphatase 50 U/L (46-116) Creatine Kinase 60 U/L (26-192) Total Protein 9.1 g/dL (6.4-8.2) H Albumin 4.2 g/dL (3.4-5.0) Lipase 224 U/L (73-393) Laboratory Tests 05/23/17 12:05 Laboratory Tests 05/23/17 12:05 EKG EKG [] Radiology/Procedures Radiology/Procedures [facility] [address] [place] [address] IMAGING REPORT Signed PATIENT: JEET ASCENCIO ACCOUNT: [id number] : 1990 LOCATION: ER AGE: 27 SEX: F EXAM STATUS: REG ER ORD. PHYSICIAN: DINORAH PALACIO MD REASON: abd pain.nausea and vomiting, left sided abd. pain. PROCEDURE: ACUTE ABDOMEN SERIES Indication: Left abdominal pain. Nausea and vomiting. Negative CT yesterday. Technique: Abdominal series with PA chest radiograph contains 3 images. Findings: The lungs are clear. The heart is not enlarged. Nipple piercings are noted. There is no free air. Mildly dilated bowel loop is noted in the left upper abdomen with air-fluid level, bowel loop up to 3 cm in diameter. There is no corresponding finding on the yesterday's CT. There are clips in the right upper quadrant. Impression: Nonspecific bowel gas pattern. There is now a single mildly prominent bowel loop in the left upper abdomen with air-fluid level. This could represent focal ileus. It is a change from yesterday's CT. [place] loop with a pancreatitis is a possibility and correlation with laboratory values would be suggested. Yesterday's CT without contrast demonstrated normal appearance of the pancreas. DICTATED and SIGNED BY: NEERU BOYD MD DATE: 05/23/17 [id number] CC: DINORAH PALACIO MD; NO PCP ~ Impressions: Abdominal pain Course & Med Decision Making Course & Med Decision Making Pertinent Labs and Imaging studies reviewed. (See chart for details) Patient CT scan and labs yesterday didn't show anything acutely discharge. She comes back with worsening pain today. It took about 8 mg of morphine before her pain was tolerable. Her acute abdominal series was concerned for possible ileus. Her exam has normal bowel sounds. Tenderness and left upper quadrant. Patient is being admitted secondary to pain control. Patient is being admitted Dr. Lama GI consultation. She is in stable condition this time. Dragon Disclaimer Dragon Disclaimer This electronic medical record was generated, in whole or in part, using a voice recognition dictation system. Departure Departure Impression: Primary Impression: Abdominal pain Disposition: ADMITTED INPATIENT Admitting Physician: Makenna Lama Condition: STABLE Referrals: NO PCP (PCP) Problem Qualifiers Primary Impression: Abdominal pain Abdominal location: left upper quadrant Qualified Codes: R10.12 - Left upper quadrant pain DINORAH PALACIO MD May 23, 2017 12:09
[2017-05-23] MEDS ORDERED: ONDANSETRON PF 4 MG/2 ML VIAL. IV ONE (12:15)
[2017-05-23] MEDS: MORPHINE SULFATE 4 MG/ML DISP.SYRIN. IV/SQ PRN ×3 (12:20→14:40)
[2017-05-23 12:24] LABS: BASO % 0 % (0-3); EOS % 0 % (0-3); HEMATOCRIT 46.5 % (36.0-47.0); HEMOGLOBIN 15.6 g/dL (12.0-15.5); LYMPH # 1.5 x10^3/uL (1.0-4.8); LYMPH % 19 % (24-48); MEAN CORPUSCULAR HEMOGLOBIN 29 pg (25-35); MEAN CORPUSCULAR HGB CONC 34 g/dL (31-37); MEAN CORPUSCULAR VOLUME 87 fL (79-100); MONO % 8 % (0-9); NEUT % 72 % (31-73); PLATELET COUNT 297 x10^3/uL (140-400); RED BLOOD COUNT 5.33 x10^6/uL (3.50-5.40); RED CELL DISTRIBUTION WIDTH 13.8 % (11.5-14.5); WHITE BLOOD COUNT 8.1 x10^3/uL (4.0-11.0)
[2017-05-23 12:27] LABS: CALCIUM 9.6 mg/dL (8.5-10.1); GFR 81.7; POTASSIUM 3.3 mmol/L (3.5-5.1)
[2017-05-23 12:28] LABS: BILIRUBIN,URINE SMALL (NEG); GLUCOSE,URINE NEGATIVE (NEG); NITRITE,URINE NEGATIVE (NEG); PROTEIN,URINE 30 mg/dL (NEG-TRACE); UROBILINOGEN,URINE 0.2 mg/dL (0.2 mg/dL)
[2017-05-23 12:34] LABS: BARBITURATES NEG (NEG); BENZODIAZEPINES NEG (NEG); CANNABINOIDS POS (NEG); COCAINE NEG (NEG); METHADONE NEG (NEG); OPIATES NEG (NEG); PHENCYCLIDINE NEG (NEG)
[2017-05-23 12:34] LABS: ALBUMIN 4.2 g/dL (3.4-5.0); DIRECT BILIRUBIN 0.2 mg/dL (0.0-0.2); TOTAL BILIRUBIN 0.6 mg/dL (0.2-1.0); TOTAL PROTEIN 9.1 g/dL (6.4-8.2)
[2017-05-23 12:38] LABS: BACTERIA,URINE FEW /HPF (0-FEW); RBC,URINE 20-40 /HPF (0-2); SQUAMOUS EPITHELIAL CELL,UR FEW /LPF
[2017-05-23 12:43] LABS: PROTHROMBIN TIME PATIENT 12.9 SEC (11.7-14.0)
--- NOTE | 2017-05-23 13:12 | RAD ---
Indication: Left abdominal pain. Nausea and vomiting. Negative CT yesterday. Technique: Abdominal series with PA chest radiograph contains 3 images. Findings: The lungs are clear. The heart is not enlarged. Nipple piercings are noted. There is no free air. Mildly dilated bowel loop is noted in the left upper abdomen with air-fluid level, bowel loop up to 3 cm in diameter. There is no corresponding finding on the yesterday's CT. There are clips in the right upper quadrant. Impression: Nonspecific bowel gas pattern. There is now a single mildly prominent bowel loop in the left upper abdomen with air-fluid level. This could represent focal ileus. It is a change from yesterday's CT. [place] loop with a pancreatitis is a possibility and correlation with laboratory values would be suggested. Yesterday's CT without contrast demonstrated normal appearance of the pancreas.
[2017-05-23] MEDS ORDERED: ONDANSETRON PF 4 MG/2 ML VIAL. IV PRN ×2 (14:45→15:30)
[2017-05-23] MEDS ORDERED: IV DEXTROSE 5 %-0.45 % NACL 1,000 ML IV ONE (14:45)
--- NOTE | 2017-05-23 15:24 | RAD ---
Indication: Epigastric and left upper quadrant pain. Technique: Right upper quadrant ultrasound was performed. Comparison is a noncontrast CT from yesterday. Findings: Pancreas is obscured by bowel gas. Aorta is normal caliber. IVC is patent. Liver is normal in size and echogenicity. Gallbladder is absent. Common bile duct measures 6 mm, mildly dilated for age although can be within normal limits post cholecystectomy. Kidneys are without hydronephrosis or mass. Spleen is not enlarged. Impression: 1. No acute abdominal findings. 2. Common bile duct measurement of 6 mm can be within normal limits post cholecystectomy.
[2017-05-23] MEDS ORDERED: ONDANSETRON ODT 4 MG TAB.RAPDIS. PO PRN (15:30)
--- NOTE | 2017-05-23 15:37 | PDOC2 ---
CASSIE HUNTER 05/23/17 1537: GI CONSULT Reason For Consult: Abd pain HPI: HPI: 27 y/o female seen in ER, also d/w Dr. Yeboah. 3rd day of LUQ to LLQ pain, constant, associated w/ n/v. Was actually seen in the ER last night, normal CT and labs, sent home w/ Zofran. Returned today w/ ongoing pain. Admits this pain is actually chronic, intermittent for months (about every 2 months), usually correlates w/ menstrual cycle (pain begins a couple days after bleeding starts). In fact, was recently started on control pills w/ [facility] @ [facility] (<1 month ago). Has been seen in ER here, at , at [facility], and in [place], [place]. This time, pain began before menstruation (started period today) although feels the same as it usually does. Significant emesis x 2 days, thinks maybe saw specks of red in yellow bile once. No reflux/heartburn, no dysphagia. Can be constipated w/ pain (says sometimes no stools for ~2 weeks), trying stool softeners, had some "splats" of stool today. S/p cholecystectomy for stones, surgery for intussusception last year, also right salpingectomy for ruptured ectopic . No previous EGD or colonoscopy; does recall "a scope through her nose" and suggestion that she "swallow a camera pill" (not performed because she couldn't swallow it). No regular use of NSAIDs. Labs: fairly unremarkable, note AST 43 and ALT 65 (new from yesterday), normal lipase, UA w/ blood (although currently menstruating. Imaging: CT yesterday: noted a few diverticula and calcified phleboliths. Acute Abd Series today: mildly dilated bowel loop is noted in the left upper abdomen with air-fluid level (possible focal ileus). Abd US today: unremarkable (s/p cholecystectomy w/ CBD 6mm). Mother, Marina, present. PMH: PMH: diverticulosis, cholecystectomy, right salpingectomy, surgery for intussusception FH: Family History: Cancer (lung - maternal grandmother) Social History: Smoke: <1 pack per day ALCOHOL: rare Drugs: Marijuana ROS: GEN: Denies fevers, chills, sweats HEENT: Denies blurred vision, sore throat CV: Denies chest pain RESP: Denies shortness of air, cough GI: Per HPI : Denies hematuria, dysuria ENDO: Denies weight changes NEURO: Denies confusion, dizziness MSK: Denies weakness, joint pain/swelling SKIN: Denies jaundice, pruritus Vitals: Vitals: Vital Signs Date Time Temp Pulse Resp B/P (MAP) Pulse Ox O2 Delivery O2 Flow Rate FiO2 05/23/17 15:01 63 20 105/69 (81) 100 Room Air 05/23/17 12:10 97.7 97.7 Labs: Labs: Laboratory Tests Test 05/23/17 12:00 05/23/17 12:04 05/23/17 12:05 Urine Collection Type Unknown Urine Color Yuliana Urine Clarity Cloudy Urine pH 6.0 Urine Specific [place] >=1.030 Urine Protein 30 mg/dL (NEG-TRACE) Urine Glucose (UA) Negative mg/dL (NEG) Urine Ketones (Stick) >=80 mg/dL (NEG) Urine Blood Large (NEG) Urine Nitrite Negative (NEG) Urine Bilirubin Small (NEG) Urine Urobilinogen Dipstick 0.2 mg/dL (0.2 mg/dL) Urine Leukocyte Esterase Trace (NEG) Urine RBC 20-40 /HPF (0-2) Urine WBC 1-4 /HPF (0-4) Urine Squamous Epithelial Cells Few /LPF Urine Bacteria Few /HPF (0-FEW) Urine Mucus Marked /LPF Urine Opiates Screen Neg (NEG) Urine Methadone Screen Neg (NEG) Urine Barbiturates Neg (NEG) Urine Phencyclidine Screen Neg (NEG) Urine Amphetamine/Methamphetamine Neg (NEG) Urine Benzodiazepines Screen Neg (NEG) Urine Cocaine Screen Neg (NEG) Urine Cannabinoids Screen Pos (NEG) Urine Ethyl Alcohol Neg (NEG) Bedside Urine HCG, Qualitative Hcg negative (Negative) White Blood Count 8.1 x10^3/uL (4.0-11.0) Red Blood Count 5.33 x10^6/uL (3.50-5.40) Hemoglobin 15.6 g/dL (12.0-15.5) Hematocrit 46.5 % (36.0-47.0) Mean Corpuscular Volume 87 fL (79-100) Mean Corpuscular Hemoglobin 29 pg (25-35) Mean Corpuscular Hemoglobin Concent 34 g/dL (31-37) Red Cell Distribution Width 13.8 % (11.5-14.5) Platelet Count 297 x10^3/uL (140-400) Neutrophils (%) (Auto) 72 % (31-73) Lymphocytes (%) (Auto) 19 % (24-48) Monocytes (%) (Auto) 8 % (0-9) Eosinophils (%) (Auto) 0 % (0-3) Basophils (%) (Auto) 0 % (0-3) Neutrophils # (Auto) 5.9 x10^3uL (1.8-7.7) Lymphocytes # (Auto) 1.5 x10^3/uL (1.0-4.8) Monocytes # (Auto) 0.7 x10^3/uL (0.0-1.1) Eosinophils # (Auto) 0.0 x10^3/uL (0.0-0.7) Basophils # (Auto) 0.0 x10^3/uL (0.0-0.2) Prothrombin Time 12.9 SEC (11.7-14.0) Prothromb Time International Ratio 1.0 (0.8-1.1) Activated Partial Thromboplast Time 30 SEC (24-38) Sodium Level 139 mmol/L (136-145) Potassium Level 3.3 mmol/L (3.5-5.1) Chloride Level 100 mmol/L (98-107) Carbon Dioxide Level 25 mmol/L (21-32) Anion Gap 14 (6-14) Blood Urea Nitrogen 14 mg/dL (7-20) Creatinine 1.0 mg/dL (0.6-1.0) Estimated GFR (Cockcroft-Gault) 81.7 Glucose Level 102 mg/dL (70-99) Calcium Level 9.6 mg/dL (8.5-10.1) Total Bilirubin 0.6 mg/dL (0.2-1.0) Direct Bilirubin 0.2 mg/dL (0.0-0.2) Aspartate Amino Transf (AST/SGOT) 43 U/L (15-37) Alanine Aminotransferase (ALT/SGPT) 65 U/L (14-59) Alkaline Phosphatase 50 U/L (46-116) Creatine Kinase 60 U/L (26-192) Total Protein 9.1 g/dL (6.4-8.2) Albumin 4.2 g/dL (3.4-5.0) Lipase 224 U/L (73-393) Allergies: Coded Allergies: Iodinated Contrast- Oral and IV Dye (Verified Allergy, Intermediate, Shortness of breath, 05/22/17) oxycodone (Unverified Allergy, Intermediate, 10/30/14) peanut (Unverified Allergy, Intermediate, 10/30/14) Medications: Current Medications Medications (Trade) Dose Ordered Sig/Geoff Route PRN Reason Start Time Stop Time Status Last Admin Dose Admin Morphine Sulfate 4 mg PRN Q15MIN PRN IV/SQ PAIN GREATER THAN 10/1405/23/17 12:15 05/24/17 12:14 05/23/17 14:40 Sodium Chloride 1,000 ml @ 1,000 mls/hr Q1H IV 05/23/17 12:09 05/23/17 13:08 DC 05/23/17 12:19 Ondansetron HCl (Zofran) 4 mg 1X ONCE IV 05/23/17 12:15 05/23/17 12:16 DC 05/23/17 12:19 Dextrose/Sodium Chloride 1,000 ml @ 100 mls/hr 1X ONCE IV 05/23/17 14:45 05/24/17 00:44 05/23/17 14:45 Imaging: Imaging: Acute Abd Series 05/23/17 Findings: The lungs are clear. The heart is not enlarged. Nipple piercings are noted. There is no free air. Mildly dilated bowel loop is noted in the left upper abdomen with air-fluid level, bowel loop up to 3 cm in diameter. There is no corresponding finding on the yesterday's CT. There are clips in the right upper quadrant. Impression: Nonspecific bowel gas pattern. There is now a single mildly prominent bowel loop in the left upper abdomen with air-fluid level. This could represent focal ileus. It is a change from yesterday's CT. [place] loop with a pancreatitis is a possibility and correlation with laboratory values would be suggested. Yesterday's CT without contrast demonstrated normal appearance of the pancreas. Abd US 05/23/17 Findings: Pancreas is obscured by bowel gas. Aorta is normal caliber. IVC is patent. Liver is normal in size and echogenicity. Gallbladder is absent. Common bile duct measures 6 mm, mildly dilated for age although can be within normal limits post cholecystectomy. Kidneys are without hydronephrosis or mass. Spleen is not enlarged. Impression: 1. No acute abdominal findings. 2. Common bile duct measurement of 6 mm can be within normal limits post cholecystectomy. CT A/P 05/22/17 w/o contrast Findings: The lung bases are clear. There is no pleural effusion. The heart is not enlarged. Solid organ evaluation is limited without contrast. Liver is unremarkable. Gallbladder is surgically absent. Spleen is not enlarged. Pancreas and adrenals are unremarkable. No obstructing or nonobstructing calculus is identified. Neither ureter is dilated. Neither ureter can be followed in its entirety. Aorta is normal caliber. Lack of IV or oral contrast and its evaluation of bowel. There is no small bowel obstruction or mural thickening. Normal appendix is noted. There are a few diverticula in the colon. There are no findings of diverticulitis. There is no bladder calculus. There are calcified phleboliths. There is no adnexal mass. There is no free pelvic fluid. Impression: 1. No acute abdominal findings. 2. No obstructing or nonobstructing renal calculus. 3. Prior cholecystectomy. CT A/P w/ oral and IV contrast 11/2016 FINDINGS The liver and spleen are normal in size without focal lesions. The pancreas, adrenal glands, and kidneys are unremarkable. No free fluid or adenopathy is seen. There has been a cholecystectomy. The bowel loops are unremarkable. The appendix is normal. No pelvic mass is seen. The uterus is unremarkable. IMPRESSION Negative CT of the abdomen and pelvis with contrast. PE: GEN: NAD HEENT: Atraumatic, PERRL LUNGS: CTAB anteriorly HEART: RRR ABD: NABS, S/ND, LUQ to LLQ tenderness EXTREMITY: No edema SKIN: No rashes, no jaundice NEURO/PSYCH: A & O 3 A/P: A/P: Recurrent left-sided abd pain, n/v -s/p cholecystectomy, right salpingectomy, surgery for intussusception -occurs around menstruation, started on control for this <1 month ago -labs and imaging above -- Check a.m. Cortisol and ROMIE. SBS tomorrow. Empiric H2 wally. When taking PO, would suggest Miralax PRN consider h/o constipation. PROPECK,VANCE S MD 05/23/17 1646: GI CONSULT Allergies: Coded Allergies: Iodinated Contrast- Oral and IV Dye (Verified Allergy, Intermediate, Shortness of breath, 05/22/17) oxycodone (Unverified Allergy, Intermediate, 10/30/14) peanut (Unverified Allergy, Intermediate, 10/30/14) CASSIE HUNTER May 23, 2017 15:37 VANCE PERALTA MD May 23, 2017 16:46
--- NOTE | 2017-05-23 15:38 | PDOC1 ---
History and Physical Date of Admission Date of Admission DATE: 05/23/17 TIME: 15:33 Identification/Chief Complaint Chief Complaint upper abd pain Problems: Source Source: Caregiver, Chart review, Patient History of Present Illness History of Present Illness 27 y.o AA female with no past emdical no home meds, second visit to ER with epiagstric pain, nausea but no emesis, no fevers, on constipated side, admitted for further eval and GI. 2-3 days epig pain, as mentioned, CT only maybe mild ileus, CT dry (allergy/soa with IV dye), ileus, UA and labs ok,Liapse ok, Pancreas on dry CT ok, Eager to try liquid diet Past Medical History Cardiovascular: No pertinent hx Pulmonary: No pertinent hx GI: No pertinent hx Heme/Onc: No pertinent hx Hepatobiliary: No pertinent hx Psych: No pertinent hx Rheumatologic: No pertinent hx Infectious disease: No pertinent hx ENT: No pertinent hx Renal/: No pertinent hx Endocrine: No pertinent hx Dermatology: No pertinent hx Past Surgical History Past Surgical History: Cholecystectomy, Other (ectopic ) Family History Family History: No Significant Social History Smoke: <1 pack per day ALCOHOL: none Drugs: None Current Problem List Problem List Problems Medical Problems: (1) Abdominal pain Status: Acute Problems: Current Medications Current Medications Current Medications Morphine Sulfate 4 mg PRN Q15MIN PRN IV/SQ PAIN GREATER THAN 3/10 Last administered on 05/23/17 14:40; Start 05/23/17 at 12:15; Stop 05/24/17 at 12 :14 Sodium Chloride 1,000 ml @ 1,000 mls/hr Q1H IV Last administered on 12:19; Start 05/23/17 at 12:09; Stop 05/23/17 at 13:08; Status DC Ondansetron HCl (Zofran) 4 mg 1X ONCE IV Last administered on 05/23/17 12:19 ; Start 05/23/17 at 12:15; Stop 05/23/17 at 12:16; Status DC Ondansetron HCl (Zofran) 4 mg PRN Q8HRS PRN IV NAUSEA/VOMITING; Start at 14:45; Stop 05/24/17 at 14:44 Morphine Sulfate 4 mg PRN Q2HR PRN IV PAIN; Start 05/23/17 at 14:45; Stop at 14:44 Dextrose/Sodium Chloride 1,000 ml @ 100 mls/hr 1X ONCE IV Last administered on 05/23/17t 14:45; Start 05/23/17 at 14:45; Stop 05/24/17 at 00:44 Active Scripts Active Zofran Odt (Ondansetron) 4 Mg Tab.rapdis 1 Tab SL Q8HRS Bactrim Ds Tablet (Sulfamethoxazole/Trimethoprim) 1 Each Tablet 1 Tab PO BID Flagyl (Metronidazole) 500 Mg Tablet 1 Tab PO BID Zofran Odt (Ondansetron) 4 Mg Tab.rapdis 1 Tab SL Q8HRS [place] 5-325 Tablet (Acetaminophen/Hydrocodone Bitart) 1 Each Tablet 1 Tab PO PRN Q6HRS PRN Allergies Allergies: Coded Allergies: Iodinated Contrast- Oral and IV Dye (Verified Allergy, Intermediate, Shortness of breath, 05/22/17) oxycodone (Unverified Allergy, Intermediate, 10/30/14) peanut (Unverified Allergy, Intermediate, 10/30/14) ROS Review of System as per HPI, all else is neg Physical Exam General: Alert, Oriented X3, Cooperative, No acute distress HEENT: Atraumatic, PERRLA, EOMI Lungs: Clear to auscultation, Normal air movement Heart: S1S2, RRR, no thrills, no rubs, no gallops, no murmurs Cardiovascular: S1, S2 Breasts: Normal, Rt breast nml w/o mass, Lt breast nml w/o mass, Nipples normal Abdomen: Normal bowel sounds, Soft, No tenderness, No hepatosplenomegaly, No masses Male Genitals Exam: normal genitalia, normal prostate Rectal Exam: not examined PELVIC: Nml ext genitalia Extremities: No clubbing, No cyanosis, No edema, Normal pulses, No tenderness/ swelling Skin: No rashes, No breakdown, No significant lesion Neuro: Normal gait, Normal speech, Strength at 5/5 X4 ext, Normal tone, Sensation intact, Cranial nerves 3-12 NL, Reflexes 2+ Psych/Mental Status: Mental status NL, Mood NL Vitals Vitals Vital Signs Date Time Temp Pulse Resp B/P (MAP) Pulse Ox O2 Delivery O2 Flow Rate FiO2 05/23/17 15:01 63 20 105/69 (81) 100 Room Air 05/23/17 12:10 97.7 97.7 Labs Labs Laboratory Tests Test 05/23/17 12:00 05/23/17 12:04 05/23/17 12:05 Urine Collection Type Unknown Urine Color Yuliana Urine Clarity Cloudy Urine pH 6.0 Urine Specific [place] >=1.030 Urine Protein 30 mg/dL (NEG-TRACE) Urine Glucose (UA) Negative mg/dL (NEG) Urine Ketones (Stick) >=80 mg/dL (NEG) Urine Blood Large (NEG) Urine Nitrite Negative (NEG) Urine Bilirubin Small (NEG) Urine Urobilinogen Dipstick 0.2 mg/dL (0.2 mg/dL) Urine Leukocyte Esterase Trace (NEG) Urine RBC 20-40 /HPF (0-2) Urine WBC 1-4 /HPF (0-4) Urine Squamous Epithelial Cells Few /LPF Urine Bacteria Few /HPF (0-FEW) Urine Mucus Marked /LPF Urine Opiates Screen Neg (NEG) Urine Methadone Screen Neg (NEG) Urine Barbiturates Neg (NEG) Urine Phencyclidine Screen Neg (NEG) Urine Amphetamine/Methamphetamine Neg (NEG) Urine Benzodiazepines Screen Neg (NEG) Urine Cocaine Screen Neg (NEG) Urine Cannabinoids Screen Pos (NEG) Urine Ethyl Alcohol Neg (NEG) Bedside Urine HCG, Qualitative Hcg negative (Negative) White Blood Count 8.1 x10^3/uL (4.0-11.0) Red Blood Count 5.33 x10^6/uL (3.50-5.40) Hemoglobin 15.6 g/dL (12.0-15.5) Hematocrit 46.5 % (36.0-47.0) Mean Corpuscular Volume 87 fL (79-100) Mean Corpuscular Hemoglobin 29 pg (25-35) Mean Corpuscular Hemoglobin Concent 34 g/dL (31-37) Red Cell Distribution Width 13.8 % (11.5-14.5) Platelet Count 297 x10^3/uL (140-400) Neutrophils (%) (Auto) 72 % (31-73) Lymphocytes (%) (Auto) 19 % (24-48) Monocytes (%) (Auto) 8 % (0-9) Eosinophils (%) (Auto) 0 % (0-3) Basophils (%) (Auto) 0 % (0-3) Neutrophils # (Auto) 5.9 x10^3uL (1.8-7.7) Lymphocytes # (Auto) 1.5 x10^3/uL (1.0-4.8) Monocytes # (Auto) 0.7 x10^3/uL (0.0-1.1) Eosinophils # (Auto) 0.0 x10^3/uL (0.0-0.7) Basophils # (Auto) 0.0 x10^3/uL (0.0-0.2) Prothrombin Time 12.9 SEC (11.7-14.0) Prothromb Time International Ratio 1.0 (0.8-1.1) Activated Partial Thromboplast Time 30 SEC (24-38) Sodium Level 139 mmol/L (136-145) Potassium Level 3.3 mmol/L (3.5-5.1) Chloride Level 100 mmol/L (98-107) Carbon Dioxide Level 25 mmol/L (21-32) Anion Gap 14 (6-14) Blood Urea Nitrogen 14 mg/dL (7-20) Creatinine 1.0 mg/dL (0.6-1.0) Estimated GFR (Cockcroft-Gault) 81.7 Glucose Level 102 mg/dL (70-99) Calcium Level 9.6 mg/dL (8.5-10.1) Total Bilirubin 0.6 mg/dL (0.2-1.0) Direct Bilirubin 0.2 mg/dL (0.0-0.2) Aspartate Amino Transf (AST/SGOT) 43 U/L (15-37) Alanine Aminotransferase (ALT/SGPT) 65 U/L (14-59) Alkaline Phosphatase 50 U/L (46-116) Creatine Kinase 60 U/L (26-192) Total Protein 9.1 g/dL (6.4-8.2) Albumin 4.2 g/dL (3.4-5.0) Lipase 224 U/L (73-393) Laboratory Tests Test 05/23/17 12:00 05/23/17 12:04 05/23/17 12:05 Urine Collection Type Unknown Urine Color Yuliana Urine Clarity Cloudy Urine pH 6.0 Urine Specific [place] >=1.030 Urine Protein 30 mg/dL (NEG-TRACE) Urine Glucose (UA) Negative mg/dL (NEG) Urine Ketones (Stick) >=80 mg/dL (NEG) Urine Blood Large (NEG) Urine Nitrite Negative (NEG) Urine Bilirubin Small (NEG) Urine Urobilinogen Dipstick 0.2 mg/dL (0.2 mg/dL) Urine Leukocyte Esterase Trace (NEG) Urine RBC 20-40 /HPF (0-2) Urine WBC 1-4 /HPF (0-4) Urine Squamous Epithelial Cells Few /LPF Urine Bacteria Few /HPF (0-FEW) Urine Mucus Marked /LPF Urine Opiates Screen Neg (NEG) Urine Methadone Screen Neg (NEG) Urine Barbiturates Neg (NEG) Urine Phencyclidine Screen Neg (NEG) Urine Amphetamine/Methamphetamine Neg (NEG) Urine Benzodiazepines Screen Neg (NEG) Urine Cocaine Screen Neg (NEG) Urine Cannabinoids Screen Pos (NEG) Urine Ethyl Alcohol Neg (NEG) Bedside Urine HCG, Qualitative Hcg negative (Negative) White Blood Count 8.1 x10^3/uL (4.0-11.0) Red Blood Count 5.33 x10^6/uL (3.50-5.40) Hemoglobin 15.6 g/dL (12.0-15.5) Hematocrit 46.5 % (36.0-47.0) Mean Corpuscular Volume 87 fL (79-100) Mean Corpuscular Hemoglobin 29 pg (25-35) Mean Corpuscular Hemoglobin Concent 34 g/dL (31-37) Red Cell Distribution Width 13.8 % (11.5-14.5) Platelet Count 297 x10^3/uL (140-400) Neutrophils (%) (Auto) 72 % (31-73) Lymphocytes (%) (Auto) 19 % (24-48) Monocytes (%) (Auto) 8 % (0-9) Eosinophils (%) (Auto) 0 % (0-3) Basophils (%) (Auto) 0 % (0-3) Neutrophils # (Auto) 5.9 x10^3uL (1.8-7.7) Lymphocytes # (Auto) 1.5 x10^3/uL (1.0-4.8) Monocytes # (Auto) 0.7 x10^3/uL (0.0-1.1) Eosinophils # (Auto) 0.0 x10^3/uL (0.0-0.7) Basophils # (Auto) 0.0 x10^3/uL (0.0-0.2) Prothrombin Time 12.9 SEC (11.7-14.0) Prothromb Time International Ratio 1.0 (0.8-1.1) Activated Partial Thromboplast Time 30 SEC (24-38) Sodium Level 139 mmol/L (136-145) Potassium Level 3.3 mmol/L (3.5-5.1) Chloride Level 100 mmol/L (98-107) Carbon Dioxide Level 25 mmol/L (21-32) Anion Gap 14 (6-14) Blood Urea Nitrogen 14 mg/dL (7-20) Creatinine 1.0 mg/dL (0.6-1.0) Estimated GFR (Cockcroft-Gault) 81.7 Glucose Level 102 mg/dL (70-99) Calcium Level 9.6 mg/dL (8.5-10.1) Total Bilirubin 0.6 mg/dL (0.2-1.0) Direct Bilirubin 0.2 mg/dL (0.0-0.2) Aspartate Amino Transf (AST/SGOT) 43 U/L (15-37) Alanine Aminotransferase (ALT/SGPT) 65 U/L (14-59) Alkaline Phosphatase 50 U/L (46-116) Creatine Kinase 60 U/L (26-192) Total Protein 9.1 g/dL (6.4-8.2) Albumin 4.2 g/dL (3.4-5.0) Lipase 224 U/L (73-393) VTE Prophylaxis Ordered VTE Prophylaxis Devices: Yes VTE Pharmacological Prophylaxi: Yes Assessment/Plan Assessment/Plan 1. ABd pain, neg work up except for mILD ileus on KUB - normal pancreas and lipase, GB is out no UTI, sono pending 2. Allergy to IV dye and norco lortab etc- SOA with IV dye 3. Obesity BMI 27 4. Hypokalemia - replace orally PLAn: Admit oBS IVF Lqiudi diet then ADAT GI consulted Supportive meds Make her move bM Replace K orlally, recheck tmr seen at [facility]ISHA LANGE MD May 23, 2017 15:38
[2017-05-23] MEDS ORDERED: NICOTINE 21MG PATCH. TD PRN (15:45)
[2017-05-23 15:47] VITALS: BP 94/58
[2017-05-23] MEDS: traMADol 50 MG TABLET PO PRN (16:30)
[2017-05-23] MEDS: POTASSIUM CHLORIDE 10 MEQ TABLET.ER. PO SCH ×2 (16:30→18:34)
[2017-05-23] MEDS: MORPHINE SULFATE 4 MG/ML DISP.SYRIN. IV PRN ×2 (18:36→23:16)
[2017-05-23 19:30] VITALS: BP 93/57
[2017-05-23] MEDS: FAMOTIDINE 20 MG/2 ML VIAL IVP SCH (21:16)
[2017-05-23 23:22] VITALS: BP 97/68
[2017-05-24] MEDS: IV NORMAL SALINE 1000ML BAG 1,000 ML IV SCH ×3 (03:13→20:15)
[2017-05-24] MEDS: MORPHINE SULFATE 4 MG/ML DISP.SYRIN. IV PRN ×3 (03:17→20:15)
[2017-05-24 03:22] VITALS: BP 100/64
[2017-05-24 05:54] LABS: BASO % 0 % (0-3); EOS % 3 % (0-3); HEMATOCRIT 38.4 % (36.0-47.0); HEMOGLOBIN 12.7 g/dL (12.0-15.5); LYMPH # 2.1 x10^3/uL (1.0-4.8); LYMPH % 46 % (24-48); MEAN CORPUSCULAR HEMOGLOBIN 29 pg (25-35); MEAN CORPUSCULAR HGB CONC 33 g/dL (31-37); MEAN CORPUSCULAR VOLUME 88 fL (79-100); MONO % 10 % (0-9); NEUT % 41 % (31-73); PLATELET COUNT 203 x10^3/uL (140-400); RED BLOOD COUNT 4.36 x10^6/uL (3.50-5.40); RED CELL DISTRIBUTION WIDTH 13.7 % (11.5-14.5); WHITE BLOOD COUNT 4.5 x10^3/uL (4.0-11.0)
[2017-05-24 05:58] LABS: CALCIUM 8.7 mg/dL (8.5-10.1); CREATININE 0.7 mg/dL (0.6-1.0); GFR 123.4; POTASSIUM 3.3 mmol/L (3.5-5.1)
[2017-05-24 07:00] VITALS: BP 102/64
[2017-05-24] MEDS ORDERED: BARIUM SULFATE 60% 355 ML SUSP PO ONE (08:15)
[2017-05-24] MEDS: FAMOTIDINE 20 MG/2 ML VIAL IVP SCH (09:00)
--- NOTE | 2017-05-24 10:47 | RAD ---
EXAM: Small bowel follow-through. HISTORY: Left abdominal pain. COMPARISON: None. FINDINGS: Con[employer] Analyst image demonstrates no evidence of obstruction. There is suggestion of mild left colonic wall thickening given its fold pattern. Cholecystectomy clips are noted. Barium contrast material was administered orally and followed in its course through the small bowel and proximal colon with fluoroscopy and plain radiographs. 5 fluoroscopic images were obtained. Fluoroscopy time 0.9 minutes. Gastroesophageal reflux is incidentally noted on image 2. The small bowel fold pattern appears normal. There are no strictures or dilatation. The terminal ileum appears normal. Transit time is normal at <90 minutes. IMPRESSION: 1. Findings suggesting mild left colonic wall thickening. Correlate for colitis. 2. No small bowel abnormalities identified. 3. Gastroesophageal reflux was incidentally noted.
[2017-05-24 11:00] VITALS: BP 104/67
--- NOTE | 2017-05-24 11:09 | PDOC ---
PROGRESS NOTES Chief Complaint Chief Complaint 1. ABd pain, neg work up except for mILD ileus on KUB - normal pancreas and lipase, GB is out no UTI, sono, ok, small bowel series pending 2. Allergy to IV dye and norco lortab etc- SOA with IV dye 3. Obesity BMI 27 4. Hypokalemia - replaced History of Present Illness History of Present Illness OUt having tests SMall bowel series results pending NO overnight calls though except for sleeping aide PLAN: Await test results Follow GI recs Vitals Vitals Vital Signs Date Time Temp Pulse Resp B/P (MAP) Pulse Ox O2 Delivery O2 Flow Rate FiO2 05/24/17 10:59 Room Air 05/24/17 07:00 98.6 56 16 102/64 (77) 98 98.6 Physical Exam General: Alert, Oriented X3, Cooperative, No acute distress Abdomen: Normal bowel sounds, Soft, No tenderness, No hepatosplenomegaly, No masses Extremities: No clubbing, No cyanosis, No edema, Normal pulses, No tenderness/ swelling Skin: No rashes, No breakdown, No significant lesion Labs LABS Laboratory Tests Test 05/23/17 12:00 05/23/17 12:04 05/23/17 12:05 05/24/17 04:00 Urine Collection Type Unknown Urine Color Yuliana Urine Clarity Cloudy Urine pH 6.0 Urine Specific [place] >=1.030 Urine Protein 30 mg/dL (NEG-TRACE) Urine Glucose (UA) Negative mg/dL (NEG) Urine Ketones (Stick) >=80 mg/dL (NEG) Urine Blood Large (NEG) Urine Nitrite Negative (NEG) Urine Bilirubin Small (NEG) Urine Urobilinogen Dipstick 0.2 mg/dL (0.2 mg/dL) Urine Leukocyte Esterase Trace (NEG) Urine RBC 20-40 /HPF (0-2) Urine WBC 1-4 /HPF (0-4) Urine Squamous Epithelial Cells Few /LPF Urine Bacteria Few /HPF (0-FEW) Urine Mucus Marked /LPF Urine Opiates Screen Neg (NEG) Urine Methadone Screen Neg (NEG) Urine Barbiturates Neg (NEG) Urine Phencyclidine Screen Neg (NEG) Urine Amphetamine/Methamphetamine Neg (NEG) Urine Benzodiazepines Screen Neg (NEG) Urine Cocaine Screen Neg (NEG) Urine Cannabinoids Screen Pos (NEG) Urine Ethyl Alcohol Neg (NEG) Bedside Urine HCG, Qualitative Hcg negative (Negative) White Blood Count 8.1 x10^3/uL (4.0-11.0) 4.5 x10^3/uL (4.0-11.0) Red Blood Count 5.33 x10^6/uL (3.50-5.40) 4.36 x10^6/uL (3.50-5.40) Hemoglobin 15.6 g/dL (12.0-15.5) 12.7 g/dL (12.0-15.5) Hematocrit 46.5 % (36.0-47.0) 38.4 % (36.0-47.0) Mean Corpuscular Volume 87 fL (79-100) 88 fL (79-100) Mean Corpuscular Hemoglobin 29 pg (25-35) 29 pg (25-35) Mean Corpuscular Hemoglobin Concent 34 g/dL (31-37) 33 g/dL (31-37) Red Cell Distribution Width 13.8 % (11.5-14.5) 13.7 % (11.5-14.5) Platelet Count 297 x10^3/uL (140-400) 203 x10^3/uL (140-400) Neutrophils (%) (Auto) 72 % (31-73) 41 % (31-73) Lymphocytes (%) (Auto) 19 % (24-48) 46 % (24-48) Monocytes (%) (Auto) 8 % (0-9) 10 % (0-9) Eosinophils (%) (Auto) 0 % (0-3) 3 % (0-3) Basophils (%) (Auto) 0 % (0-3) 0 % (0-3) Neutrophils # (Auto) 5.9 x10^3uL (1.8-7.7) 1.8 x10^3uL (1.8-7.7) Lymphocytes # (Auto) 1.5 x10^3/uL (1.0-4.8) 2.1 x10^3/uL (1.0-4.8) Monocytes # (Auto) 0.7 x10^3/uL (0.0-1.1) 0.4 x10^3/uL (0.0-1.1) Eosinophils # (Auto) 0.0 x10^3/uL (0.0-0.7) 0.1 x10^3/uL (0.0-0.7) Basophils # (Auto) 0.0 x10^3/uL (0.0-0.2) 0.0 x10^3/uL (0.0-0.2) Prothrombin Time 12.9 SEC (11.7-14.0) Prothromb Time International Ratio 1.0 (0.8-1.1) Activated Partial Thromboplast Time 30 SEC (24-38) Sodium Level 139 mmol/L (136-145) 139 mmol/L (136-145) Potassium Level 3.3 mmol/L (3.5-5.1) 3.3 mmol/L (3.5-5.1) Chloride Level 100 mmol/L (98-107) 104 mmol/L (98-107) Carbon Dioxide Level 25 mmol/L (21-32) 27 mmol/L (21-32) Anion Gap 14 (6-14) 8 (6-14) Blood Urea Nitrogen 14 mg/dL (7-20) 8 mg/dL (7-20) Creatinine 1.0 mg/dL (0.6-1.0) 0.7 mg/dL (0.6-1.0) Estimated GFR (Cockcroft-Gault) 81.7 123.4 Glucose Level 102 mg/dL (70-99) 81 mg/dL (70-99) Calcium Level 9.6 mg/dL (8.5-10.1) 8.7 mg/dL (8.5-10.1) Total Bilirubin 0.6 mg/dL (0.2-1.0) Direct Bilirubin 0.2 mg/dL (0.0-0.2) Aspartate Amino Transf (AST/SGOT) 43 U/L (15-37) Alanine Aminotransferase (ALT/SGPT) 65 U/L (14-59) Alkaline Phosphatase 50 U/L (46-116) Creatine Kinase 60 U/L (26-192) Total Protein 9.1 g/dL (6.4-8.2) Albumin 4.2 g/dL (3.4-5.0) Lipase 224 U/L (73-393) Review of Systems Review of Systems out having tests Assessment and Plan Assessmemt and Plan Problems Medical Problems: (1) Abdominal pain Status: Acute Problems: Comment Review of Relevant I have reviewed the following items teresa (where applicable) has been applied. Labs Laboratory Tests Test 05/23/17 12:00 05/23/17 12:04 05/23/17 12:05 05/24/17 04:00 Urine Collection Type Unknown Urine Color Yuliana Urine Clarity Cloudy Urine pH 6.0 Urine Specific [place] >=1.030 Urine Protein 30 mg/dL (NEG-TRACE) Urine Glucose (UA) Negative mg/dL (NEG) Urine Ketones (Stick) >=80 mg/dL (NEG) Urine Blood Large (NEG) Urine Nitrite Negative (NEG) Urine Bilirubin Small (NEG) Urine Urobilinogen Dipstick 0.2 mg/dL (0.2 mg/dL) Urine Leukocyte Esterase Trace (NEG) Urine RBC 20-40 /HPF (0-2) Urine WBC 1-4 /HPF (0-4) Urine Squamous Epithelial Cells Few /LPF Urine Bacteria Few /HPF (0-FEW) Urine Mucus Marked /LPF Urine Opiates Screen Neg (NEG) Urine Methadone Screen Neg (NEG) Urine Barbiturates Neg (NEG) Urine Phencyclidine Screen Neg (NEG) Urine Amphetamine/Methamphetamine Neg (NEG) Urine Benzodiazepines Screen Neg (NEG) Urine Cocaine Screen Neg (NEG) Urine Cannabinoids Screen Pos (NEG) Urine Ethyl Alcohol Neg (NEG) Bedside Urine HCG, Qualitative Hcg negative (Negative) White Blood Count 8.1 x10^3/uL (4.0-11.0) 4.5 x10^3/uL (4.0-11.0) Red Blood Count 5.33 x10^6/uL (3.50-5.40) 4.36 x10^6/uL (3.50-5.40) Hemoglobin 15.6 g/dL (12.0-15.5) 12.7 g/dL (12.0-15.5) Hematocrit 46.5 % (36.0-47.0) 38.4 % (36.0-47.0) Mean Corpuscular Volume 87 fL (79-100) 88 fL (79-100) Mean Corpuscular Hemoglobin 29 pg (25-35) 29 pg (25-35) Mean Corpuscular Hemoglobin Concent 34 g/dL (31-37) 33 g/dL (31-37) Red Cell Distribution Width 13.8 % (11.5-14.5) 13.7 % (11.5-14.5) Platelet Count 297 x10^3/uL (140-400) 203 x10^3/uL (140-400) Neutrophils (%) (Auto) 72 % (31-73) 41 % (31-73) Lymphocytes (%) (Auto) 19 % (24-48) 46 % (24-48) Monocytes (%) (Auto) 8 % (0-9) 10 % (0-9) Eosinophils (%) (Auto) 0 % (0-3) 3 % (0-3) Basophils (%) (Auto) 0 % (0-3) 0 % (0-3) Neutrophils # (Auto) 5.9 x10^3uL (1.8-7.7) 1.8 x10^3uL (1.8-7.7) Lymphocytes # (Auto) 1.5 x10^3/uL (1.0-4.8) 2.1 x10^3/uL (1.0-4.8) Monocytes # (Auto) 0.7 x10^3/uL (0.0-1.1) 0.4 x10^3/uL (0.0-1.1) Eosinophils # (Auto) 0.0 x10^3/uL (0.0-0.7) 0.1 x10^3/uL (0.0-0.7) Basophils # (Auto) 0.0 x10^3/uL (0.0-0.2) 0.0 x10^3/uL (0.0-0.2) Prothrombin Time 12.9 SEC (11.7-14.0) Prothromb Time International Ratio 1.0 (0.8-1.1) Activated Partial Thromboplast Time 30 SEC (24-38) Sodium Level 139 mmol/L (136-145) 139 mmol/L (136-145) Potassium Level 3.3 mmol/L (3.5-5.1) 3.3 mmol/L (3.5-5.1) Chloride Level 100 mmol/L (98-107) 104 mmol/L (98-107) Carbon Dioxide Level 25 mmol/L (21-32) 27 mmol/L (21-32) Anion Gap 14 (6-14) 8 (6-14) Blood Urea Nitrogen 14 mg/dL (7-20) 8 mg/dL (7-20) Creatinine 1.0 mg/dL (0.6-1.0) 0.7 mg/dL (0.6-1.0) Estimated GFR (Cockcroft-Gault) 81.7 123.4 Glucose Level 102 mg/dL (70-99) 81 mg/dL (70-99) Calcium Level 9.6 mg/dL (8.5-10.1) 8.7 mg/dL (8.5-10.1) Total Bilirubin 0.6 mg/dL (0.2-1.0) Direct Bilirubin 0.2 mg/dL (0.0-0.2) Aspartate Amino Transf (AST/SGOT) 43 U/L (15-37) Alanine Aminotransferase (ALT/SGPT) 65 U/L (14-59) Alkaline Phosphatase 50 U/L (46-116) Creatine Kinase 60 U/L (26-192) Total Protein 9.1 g/dL (6.4-8.2) Albumin 4.2 g/dL (3.4-5.0) Lipase 224 U/L (73-393) Laboratory Tests Test 05/23/17 12:00 05/23/17 12:04 05/23/17 12:05 05/24/17 04:00 Urine Collection Type Unknown Urine Color Yuliana Urine Clarity Cloudy Urine pH 6.0 Urine Specific [place] >=1.030 Urine Protein 30 mg/dL (NEG-TRACE) Urine Glucose (UA) Negative mg/dL (NEG) Urine Ketones (Stick) >=80 mg/dL (NEG) Urine Blood Large (NEG) Urine Nitrite Negative (NEG) Urine Bilirubin Small (NEG) Urine Urobilinogen Dipstick 0.2 mg/dL (0.2 mg/dL) Urine Leukocyte Esterase Trace (NEG) Urine RBC 20-40 /HPF (0-2) Urine WBC 1-4 /HPF (0-4) Urine Squamous Epithelial Cells Few /LPF Urine Bacteria Few /HPF (0-FEW) Urine Mucus Marked /LPF Urine Opiates Screen Neg (NEG) Urine Methadone Screen Neg (NEG) Urine Barbiturates Neg (NEG) Urine Phencyclidine Screen Neg (NEG) Urine Amphetamine/Methamphetamine Neg (NEG) Urine Benzodiazepines Screen Neg (NEG) Urine Cocaine Screen Neg (NEG) Urine Cannabinoids Screen Pos (NEG) Urine Ethyl Alcohol Neg (NEG) Bedside Urine HCG, Qualitative Hcg negative (Negative) White Blood Count 8.1 x10^3/uL (4.0-11.0) 4.5 x10^3/uL (4.0-11.0) Red Blood Count 5.33 x10^6/uL (3.50-5.40) 4.36 x10^6/uL (3.50-5.40) Hemoglobin 15.6 g/dL (12.0-15.5) 12.7 g/dL (12.0-15.5) Hematocrit 46.5 % (36.0-47.0) 38.4 % (36.0-47.0) Mean Corpuscular Volume 87 fL (79-100) 88 fL (79-100) Mean Corpuscular Hemoglobin 29 pg (25-35) 29 pg (25-35) Mean Corpuscular Hemoglobin Concent 34 g/dL (31-37) 33 g/dL (31-37) Red Cell Distribution Width 13.8 % (11.5-14.5) 13.7 % (11.5-14.5) Platelet Count 297 x10^3/uL (140-400) 203 x10^3/uL (140-400) Neutrophils (%) (Auto) 72 % (31-73) 41 % (31-73) Lymphocytes (%) (Auto) 19 % (24-48) 46 % (24-48) Monocytes (%) (Auto) 8 % (0-9) 10 % (0-9) Eosinophils (%) (Auto) 0 % (0-3) 3 % (0-3) Basophils (%) (Auto) 0 % (0-3) 0 % (0-3) Neutrophils # (Auto) 5.9 x10^3uL (1.8-7.7) 1.8 x10^3uL (1.8-7.7) Lymphocytes # (Auto) 1.5 x10^3/uL (1.0-4.8) 2.1 x10^3/uL (1.0-4.8) Monocytes # (Auto) 0.7 x10^3/uL (0.0-1.1) 0.4 x10^3/uL (0.0-1.1) Eosinophils # (Auto) 0.0 x10^3/uL (0.0-0.7) 0.1 x10^3/uL (0.0-0.7) Basophils # (Auto) 0.0 x10^3/uL (0.0-0.2) 0.0 x10^3/uL (0.0-0.2) Prothrombin Time 12.9 SEC (11.7-14.0) Prothromb Time International Ratio 1.0 (0.8-1.1) Activated Partial Thromboplast Time 30 SEC (24-38) Sodium Level 139 mmol/L (136-145) 139 mmol/L (136-145) Potassium Level 3.3 mmol/L (3.5-5.1) 3.3 mmol/L (3.5-5.1) Chloride Level 100 mmol/L (98-107) 104 mmol/L (98-107) Carbon Dioxide Level 25 mmol/L (21-32) 27 mmol/L (21-32) Anion Gap 14 (6-14) 8 (6-14) Blood Urea Nitrogen 14 mg/dL (7-20) 8 mg/dL (7-20) Creatinine 1.0 mg/dL (0.6-1.0) 0.7 mg/dL (0.6-1.0) Estimated GFR (Cockcroft-Gault) 81.7 123.4 Glucose Level 102 mg/dL (70-99) 81 mg/dL (70-99) Calcium Level 9.6 mg/dL (8.5-10.1) 8.7 mg/dL (8.5-10.1) Total Bilirubin 0.6 mg/dL (0.2-1.0) Direct Bilirubin 0.2 mg/dL (0.0-0.2) Aspartate Amino Transf (AST/SGOT) 43 U/L (15-37) Alanine Aminotransferase (ALT/SGPT) 65 U/L (14-59) Alkaline Phosphatase 50 U/L (46-116) Creatine Kinase 60 U/L (26-192) Total Protein 9.1 g/dL (6.4-8.2) Albumin 4.2 g/dL (3.4-5.0) Lipase 224 U/L (73-393) Medications Current Medications Morphine Sulfate 4 mg PRN Q15MIN PRN IV/SQ PAIN GREATER THAN 3/10 Last administered on 05/23/17 14:40; Start 05/23/17 at 12:15; Stop 05/23/17 at 15 :37; Status DC Sodium Chloride 1,000 ml @ 1,000 mls/hr Q1H IV Last administered on 12:19; Start 05/23/17 at 12:09; Stop 05/23/17 at 13:08; Status DC Ondansetron HCl (Zofran) 4 mg 1X ONCE IV Last administered on 05/23/17 12:19 ; Start 05/23/17 at 12:15; Stop 05/23/17 at 12:16; Status DC Ondansetron HCl (Zofran) 4 mg PRN Q8HRS PRN IV NAUSEA/VOMITING; Start at 14:45; Stop 05/24/17 at 14:44; Status Cancel Morphine Sulfate 4 mg PRN Q2HR PRN IV PAIN Last administered on 05/24/17 10: 59; Start 05/23/17 at 14:45; Stop 05/24/17 at 14:44 Dextrose/Sodium Chloride 1,000 ml @ 100 mls/hr 1X ONCE IV Last administered on 05/23/17 14:45; Start 05/23/17 at 14:45; Stop 05/24/17 at 00:44; Status DC Sodium Chloride 1,000 ml @ 100 mls/hr Q10H IV Last administered on 05/24/17 03:13; Start 05/24/17 at 01:00 Tramadol HCl (Ultram) 50 mg PRN Q6HRS PRN PO PAIN Last administered on 16:30; Start 05/23/17 at 15:30 Ondansetron HCl (Zofran) 4 mg PRN Q6HRS PRN IV NAUSEA/VOMITING; Start at 15:30 Ondansetron HCl (Zofran Odt) 4 mg PRN Q6HRS PRN PO NAUSEA/VOMITING; Start at 15:30 Nicotine (Nicoderm Cq 21mg) 1 patch PRN DAILY PRN TD SMOKING CESSATION; Start 05/23/17 at 15:45 Potassium Chloride (Klor-Con) 20 meq Q2H PO Last administered on 05/23/17 18: 34; Start 05/23/17 at 16:00; Stop 05/23/17 at 18:01; Status DC Famotidine (Pepcid) 20 mg BID IVP Last administered on 05/23/17 21:16; Start 05/23/17 at 21:00 Barium Sulfate (Liquid E-Z Paque) 710 ml 1X ONCE PO Last administered on 05/24 08:54; Start 05/24/17 at 08:15; Stop 05/24/17 at 08:16; Status DC Active Scripts Active Vitals/I & O Vital Sign - Last 24 Hours 05/23/17 05/23/17 05/23/17 05/23/17 12:02 12:10 12:20 12:32 Temp 97.7 97.7 Pulse 85 104 104 Resp 24 24 26 21 B/P (MAP) 145/79 (101) 145/79 (101) 129/59 (82) Pulse Ox 98 99 98 99 O2 Delivery Room Air Room Air Room Air Room Air 05/23/17 05/23/17 05/23/17 05/23/17 13:29 13:32 14:01 14:31 Pulse 92 65 73 Resp 18 19 19 20 B/P (MAP) 104/66 (79) 104/67 (79) 100/63 (75) Pulse Ox 100 100 98 100 O2 Delivery Room Air Room Air Room Air Room Air 05/23/17 05/23/17 05/23/17 05/23/17 14:40 15:01 15:47 16:30 Temp 97.8 97.8 Pulse 63 62 Resp 22 20 14 B/P (MAP) 105/69 (81) 94/58 (70) Pulse Ox 98 100 97 O2 Delivery Room Air Room Air Room Air Room Air 05/23/17 05/23/17 05/23/17 05/23/17 18:29 18:36 19:30 23:16 Temp 98.1 98.1 Pulse 52 Resp 18 18 B/P (MAP) 93/57 (69) Pulse Ox 99 O2 Delivery Room Air Room Air Room Air Room Air 05/23/17 05/24/17 05/24/17 05/24/17 23:22 03:17 03:22 03:47 Temp 98.1 98.1 98.1 98.1 Pulse 50 54 Resp 16 18 16 18 B/P (MAP) 97/68 (78) 100/64 (76) Pulse Ox 100 100 O2 Delivery Room Air Room Air Room Air Room Air 05/24/17 05/24/17 07:00 10:59 Temp 98.6 98.6 Pulse 56 Resp 16 B/P (MAP) 102/64 (77) Pulse Ox 98 O2 Delivery Room Air Room Air LAKISHA GÓMEZ MD May 24, 2017 11:08
--- NOTE | 2017-05-24 12:29 | PDOC ---
Subjective: Subjective: Eating soup. Feeling a little better. Still has left-sided pain. No BMs. Objective: Vital Signs: Vital Signs Date Time Temp Pulse Resp B/P (MAP) Pulse Ox O2 Delivery O2 Flow Rate FiO2 05/24/17 11:00 98.7 56 16 104/67 (79) 97 Room Air 98.7 Labs: Laboratory Tests Test 05/24/17 04:00 White Blood Count 4.5 x10^3/uL Red Blood Count 4.36 x10^6/uL Hemoglobin 12.7 g/dL Hematocrit 38.4 % Mean Corpuscular Volume 88 fL Mean Corpuscular Hemoglobin 29 pg Mean Corpuscular Hemoglobin Concent 33 g/dL Red Cell Distribution Width 13.7 % Platelet Count 203 x10^3/uL Neutrophils (%) (Auto) 41 % Lymphocytes (%) (Auto) 46 % Monocytes (%) (Auto) 10 % Eosinophils (%) (Auto) 3 % Basophils (%) (Auto) 0 % Neutrophils # (Auto) 1.8 x10^3uL Lymphocytes # (Auto) 2.1 x10^3/uL Monocytes # (Auto) 0.4 x10^3/uL Eosinophils # (Auto) 0.1 x10^3/uL Basophils # (Auto) 0.0 x10^3/uL Sodium Level 139 mmol/L Potassium Level 3.3 mmol/L Chloride Level 104 mmol/L Carbon Dioxide Level 27 mmol/L Anion Gap 8 Blood Urea Nitrogen 8 mg/dL Creatinine 0.7 mg/dL Estimated GFR (Cockcroft-Gault) 123.4 Glucose Level 81 mg/dL Calcium Level 8.7 mg/dL Imaging: SBS IMPRESSION: 1. Findings suggesting mild left colonic wall thickening. Correlate for colitis. 2. No small bowel abnormalities identified. 3. Gastroesophageal reflux was incidentally noted. PE: GEN: NAD LUNGS: CTAB HEART: RRR ABD: left-sided tenderness, BS+ NEURO/PSYCH: A & O 3 A/P: Recurrent left-sided abd pain, n/v -s/p cholecystectomy, right salpingectomy, surgery for intussusception -occurs around menstruation, started on control for this <1 month ago -- SBS as above w/ possible left-sided colon inflammation - not apparent on recent non-contrast CT. Also noted reflux. Cortisol and ROMIE pending. Change from IV H2 wally to PO PPI. Will review next step w/ Dr. Calvert. CASSIE HUNTER May 24, 2017 12:29
[2017-05-24 13:22] LABS: CORTISOL AM 3.2 ug/dL (6.2-19.4)
[2017-05-24] MEDS: POLYETHYLENE GLYCOL 3350 17 GM PACKET. PO SCH (14:44)
[2017-05-24] MEDS: PANTOPRAZOLE 40 MG TABLET.DR. PO SCH (14:44)
[2017-05-24 15:00] VITALS: BP 102/67
[2017-05-24] MEDS: traMADol 50 MG TABLET PO PRN (18:41)
[2017-05-24 19:05] VITALS: BP 102/63
[2017-05-24 22:57] VITALS: BP 116/68
[2017-05-25 03:11] VITALS: BP 109/67
[2017-05-25] MEDS: MORPHINE SULFATE 4 MG/ML DISP.SYRIN. IV PRN ×3 (03:33→19:22)
[2017-05-25 07:00] VITALS: BP 123/77
[2017-05-25] MEDS: POLYETHYLENE GLYCOL 3350 17 GM PACKET. PO SCH (07:55)
[2017-05-25] MEDS: PANTOPRAZOLE 40 MG TABLET.DR. PO SCH (07:55)
[2017-05-25] MEDS ORDERED: MAGNESIUM HYDROXIDE 2,400 MG/30 ML ORAL.SUSP. PO PRN (10:15)
[2017-05-25 11:00] VITALS: BP 105/68
[2017-05-25] MEDS: SENNOSIDES/DOCUSATE 8.6/50MG TABLET. PO SCH ×2 (11:02→20:30)
[2017-05-25] MEDS: DOCUSATE SODIUM 100 MG CAPSULE. PO SCH ×2 (11:02→20:30)
--- NOTE | 2017-05-25 12:21 | PDOC ---
PROGRESS NOTES Chief Complaint Chief Complaint 1. ABd pain, neg work up except for mILD ileus on KUB, could 2/2 GERD less likely tho since lower ABD, ? colitis, vs. menstruation cramps 2. Allergy to IV dye and norco lortab etc- SOA with IV dye 3. Obesity BMI 27 4. Hypokalemia constipatION GERD plan: fu with GI on gi soft diet PPI ADD stool softner pain control IVF cortisol level low on 05/24, repeat tmr at 8AM History of Present Illness History of Present Illness ROS: no fever, chills, sob or chest pain cont having some lower abd pain, 6/10 eats ok no BM x2 days low cortisol level 05/24, not today? XR IMPRESSION: 1. Findings suggesting mild left colonic wall thickening. Correlate for colitis. 2. No small bowel abnormalities identified. 3. Gastroesophageal reflux was incidentally noted. Vitals Vitals Vital Signs Date Time Temp Pulse Resp B/P (MAP) Pulse Ox O2 Delivery O2 Flow Rate FiO2 05/25/17 11:00 98.4 56 16 105/68 (80) 99 Room Air 98.4 Physical Exam General: Alert, Oriented X3, Cooperative, No acute distress Heart: Regular rate, Normal S1, Normal S2 Lungs: Clear Abdomen: Normal bowel sounds, Soft, No hepatosplenomegaly, No masses, Other ( lower abd mild tenderness, no gaarding or rebound) Extremities: No clubbing, No cyanosis, No edema, Normal pulses, No tenderness/ swelling Skin: No rashes, No breakdown, No significant lesion Assessment and Plan Assessmemt and Plan Problems Medical Problems: (1) Abdominal pain Status: Acute Problems: Comment Review of Relevant I have reviewed the following items teresa (where applicable) has been applied. Labs Laboratory Tests Test 05/24/17 04:00 05/24/17 04:05 White Blood Count 4.5 x10^3/uL (4.0-11.0) Red Blood Count 4.36 x10^6/uL (3.50-5.40) Hemoglobin 12.7 g/dL (12.0-15.5) Hematocrit 38.4 % (36.0-47.0) Mean Corpuscular Volume 88 fL (79-100) Mean Corpuscular Hemoglobin 29 pg (25-35) Mean Corpuscular Hemoglobin Concent 33 g/dL (31-37) Red Cell Distribution Width 13.7 % (11.5-14.5) Platelet Count 203 x10^3/uL (140-400) Neutrophils (%) (Auto) 41 % (31-73) Lymphocytes (%) (Auto) 46 % (24-48) Monocytes (%) (Auto) 10 % (0-9) Eosinophils (%) (Auto) 3 % (0-3) Basophils (%) (Auto) 0 % (0-3) Neutrophils # (Auto) 1.8 x10^3uL (1.8-7.7) Lymphocytes # (Auto) 2.1 x10^3/uL (1.0-4.8) Monocytes # (Auto) 0.4 x10^3/uL (0.0-1.1) Eosinophils # (Auto) 0.1 x10^3/uL (0.0-0.7) Basophils # (Auto) 0.0 x10^3/uL (0.0-0.2) Sodium Level 139 mmol/L (136-145) Potassium Level 3.3 mmol/L (3.5-5.1) Chloride Level 104 mmol/L (98-107) Carbon Dioxide Level 27 mmol/L (21-32) Anion Gap 8 (6-14) Blood Urea Nitrogen 8 mg/dL (7-20) Creatinine 0.7 mg/dL (0.6-1.0) Estimated GFR (Cockcroft-Gault) 123.4 Glucose Level 81 mg/dL (70-99) Calcium Level 8.7 mg/dL (8.5-10.1) Cortisol AM Sample 3.2 ug/dL (6.2-19.4) Microbiology 05/23/17 Urine Culture - Preliminary, Resulted 05/23/17 Urine Culture Result 1 (BENEDICTO) - Preliminary, Resulted Medications Current Medications Morphine Sulfate 4 mg PRN Q15MIN PRN IV/SQ PAIN GREATER THAN 3/10 Last administered on 05/23/17 14:40; Start 05/23/17 at 12:15; Stop 05/23/17 at 15 :37; Status DC Sodium Chloride 1,000 ml @ 1,000 mls/hr Q1H IV Last administered on 12:19; Start 05/23/17 at 12:09; Stop 05/23/17 at 13:08; Status DC Ondansetron HCl (Zofran) 4 mg 1X ONCE IV Last administered on 05/23/17 12:19 ; Start 05/23/17 at 12:15; Stop 05/23/17 at 12:16; Status DC Ondansetron HCl (Zofran) 4 mg PRN Q8HRS PRN IV NAUSEA/VOMITING; Start at 14:45; Stop 05/24/17 at 14:44; Status Cancel Morphine Sulfate 4 mg PRN Q2HR PRN IV PAIN Last administered on 05/24/17 10: 59; Start 05/23/17 at 14:45; Stop 05/24/17 at 14:44; Status DC Dextrose/Sodium Chloride 1,000 ml @ 100 mls/hr 1X ONCE IV Last administered on 05/23/17 14:45; Start 05/23/17 at 14:45; Stop 05/24/17 at 00:44; Status DC Sodium Chloride 1,000 ml @ 100 mls/hr Q10H IV Last administered on 05/24/17 20:15; Start 05/24/17 at 01:00 Tramadol HCl (Ultram) 50 mg PRN Q6HRS PRN PO PAIN Last administered on 18:41; Start 05/23/17 at 15:30 Ondansetron HCl (Zofran) 4 mg PRN Q6HRS PRN IV NAUSEA/VOMITING; Start at 15:30 Ondansetron HCl (Zofran Odt) 4 mg PRN Q6HRS PRN PO NAUSEA/VOMITING; Start at 15:30 Nicotine (Nicoderm Cq 21mg) 1 patch PRN DAILY PRN TD SMOKING CESSATION; Start 05/23/17 at 15:45 Potassium Chloride (Klor-Con) 20 meq Q2H PO Last administered on 05/23/17 18: 34; Start 05/23/17 at 16:00; Stop 05/23/17 at 18:01; Status DC Famotidine (Pepcid) 20 mg BID IVP Last administered on 05/23/17 21:16; Start 05/23/17 at 21:00; Stop 05/24/17 at 12:30; Status DC Barium Sulfate (Liquid E-Z Paque) 710 ml 1X ONCE PO Last administered on 05/24 08:54; Start 05/24/17 at 08:15; Stop 05/24/17 at 08:16; Status DC Pantoprazole Sodium (Protonix) 40 mg DAILYAC PO Last administered on 07:55; Start 05/24/17 at 13:00 Polyethylene Glycol (miraLAX PACKET) 17 gm DAILY PO Last administered on 07:55; Start 05/24/17 at 14:30 Morphine Sulfate 4 mg PRN Q2HR PRN IV PAIN Last administered on 05/25/17 07: 56; Start 05/24/17 at 15:00 Senna/Docusate Sodium (Senna Plus) 1 tab BID PO Last administered on 11:02; Start 05/25/17 at 11:00 Docusate Sodium (Colace) 100 mg BID PO Last administered on 05/25/17 11:02; Start 05/25/17 at 11:00 Magnesium Hydroxide (Milk Of Magnesia) 2,400 mg PRN Q12HR PRN PO CONSTIPATION; Start 05/25/17 at 10:15 Active Scripts Active Vitals/I & O Vital Sign - Last 24 Hours 05/24/17 05/24/17 05/24/17 05/24/17 15:00 18:41 19:05 20:07 Temp 98.8 98.8 98.8 98.8 Pulse 54 58 Resp 16 16 B/P (MAP) 102/67 (79) 102/63 (76) Pulse Ox 97 100 O2 Delivery Room Air Room Air Room Air Room Air 05/24/17 05/24/17 05/25/17 05/25/17 20:15 22:57 03:11 03:33 Temp 98.4 98.5 98.4 98.5 Pulse 49 68 Resp 18 18 16 18 B/P (MAP) 116/68 (84) 109/67 (81) Pulse Ox 99 99 O2 Delivery Room Air Room Air Room Air Room Air 05/25/17 05/25/17 05/25/17 05/25/17 04:05 07:00 07:56 08:00 Temp 98.3 98.3 Pulse 60 Resp 18 16 16 B/P (MAP) 123/77 (92) Pulse Ox 100 O2 Delivery Room Air Room Air Room Air 05/25/17 11:00 Temp 98.4 98.4 Pulse 56 Resp 16 B/P (MAP) 105/68 (80) Pulse Ox 99 O2 Delivery Room Air JEWEL HERNANDEZ MD May 25, 2017 12:20
[2017-05-25] MEDS ORDERED: ACETAMINOPHEN 325 MG TABLET. PO PRN (12:30)
--- NOTE | 2017-05-25 13:58 | PDOC ---
Subjective: Subjective: Feels better, tolerating PO, less pain, no BM. Objective: Vital Signs: Vital Signs Date Time Temp Pulse Resp B/P (MAP) Pulse Ox O2 Delivery O2 Flow Rate FiO2 05/25/17 11:00 98.4 56 16 105/68 (80) 99 Room Air 98.4 PE: GEN: NAD, was asleep ABD: laying on stomach NEURO/PSYCH: A & O 3, drowsy A/P: Recurrent left-sided abd pain - improved N/v - resolved Constipation Low cortisol -- Await repeat Cortisol and ROMIE. Continue PPI and Miralax. CASSIE HUNTER May 25, 2017 13:58
[2017-05-25 15:00] VITALS: BP 109/65
[2017-05-25] MEDS: IV NORMAL SALINE 1000ML BAG 1,000 ML IV SCH (19:14)
[2017-05-25 19:20] VITALS: BP 113/76
[2017-05-25 23:15] VITALS: BP 105/65
[2017-05-26] MEDS: MORPHINE SULFATE 4 MG/ML DISP.SYRIN. IV PRN (00:03)
[2017-05-26] MEDS: IV NORMAL SALINE 1000ML BAG 1,000 ML IV SCH ×2 (03:00→05:12)
[2017-05-26 03:19] VITALS: BP 117/70
[2017-05-26 07:00] VITALS: BP 96/58
[2017-05-26 08:36] LABS: BASO % 1 % (0-3); EOS % 4 % (0-3); HEMATOCRIT 40.3 % (36.0-47.0); HEMOGLOBIN 13.3 g/dL (12.0-15.5); LYMPH # 1.6 x10^3/uL (1.0-4.8); LYMPH % 40 % (24-48); MEAN CORPUSCULAR HEMOGLOBIN 29 pg (25-35); MEAN CORPUSCULAR HGB CONC 33 g/dL (31-37); MEAN CORPUSCULAR VOLUME 88 fL (79-100); MONO % 12 % (0-9); NEUT % 43 % (31-73); PLATELET COUNT 213 x10^3/uL (140-400); RED BLOOD COUNT 4.56 x10^6/uL (3.50-5.40); RED CELL DISTRIBUTION WIDTH 13.7 % (11.5-14.5); WHITE BLOOD COUNT 4.1 x10^3/uL (4.0-11.0)
[2017-05-26 08:53] LABS: CALCIUM 8.9 mg/dL (8.5-10.1); CREATININE 0.8 mg/dL (0.6-1.0); GFR 105.8; POTASSIUM 3.9 mmol/L (3.5-5.1)
[2017-05-26] MEDS: SENNOSIDES/DOCUSATE 8.6/50MG TABLET. PO SCH (09:10)
[2017-05-26] MEDS: DOCUSATE SODIUM 100 MG CAPSULE. PO SCH (09:10)
[2017-05-26] MEDS: POLYETHYLENE GLYCOL 3350 17 GM PACKET. PO SCH (09:11)
[2017-05-26] MEDS: PANTOPRAZOLE 40 MG TABLET.DR. PO SCH (09:11)
[2017-05-26] MEDS: traMADol 50 MG TABLET PO PRN (09:11)
[2017-05-26] MEDS ORDERED: HYDR-2758 PO (09:36)
--- NOTE | 2017-05-26 09:36 | PDOC ---
Subjective: Subjective: Feeling better, feels well enough to DC. No pain. Objective: Objective: 1 stool charted. Repeat Cortisol WNL. Vital Signs: Vital Signs Date Time Temp Pulse Resp B/P (MAP) Pulse Ox O2 Delivery O2 Flow Rate FiO2 05/26/17 07:00 98.0 58 18 96/58 (71) 99 Room Air 98.0 Labs: Laboratory Tests Test 05/26/17 08:05 White Blood Count 4.1 x10^3/uL Red Blood Count 4.56 x10^6/uL Hemoglobin 13.3 g/dL Hematocrit 40.3 % Mean Corpuscular Volume 88 fL Mean Corpuscular Hemoglobin 29 pg Mean Corpuscular Hemoglobin Concent 33 g/dL Red Cell Distribution Width 13.7 % Platelet Count 213 x10^3/uL Neutrophils (%) (Auto) 43 % Lymphocytes (%) (Auto) 40 % Monocytes (%) (Auto) 12 % Eosinophils (%) (Auto) 4 % Basophils (%) (Auto) 1 % Neutrophils # (Auto) 1.8 x10^3uL Lymphocytes # (Auto) 1.6 x10^3/uL Monocytes # (Auto) 0.5 x10^3/uL Eosinophils # (Auto) 0.2 x10^3/uL Basophils # (Auto) 0.0 x10^3/uL Sodium Level 140 mmol/L Potassium Level 3.9 mmol/L Chloride Level 107 mmol/L Carbon Dioxide Level 28 mmol/L Anion Gap 5 Blood Urea Nitrogen 9 mg/dL Creatinine 0.8 mg/dL Estimated GFR (Cockcroft-Gault) 105.8 Glucose Level 86 mg/dL Calcium Level 8.9 mg/dL PE: GEN: NAD HEART: RRR ABD: S/ND/NT NEURO/PSYCH: A & O 3 A/P: Recurrent left-sided abd pain - resolved N/v - resolved Constipation - resolved -- ROMIE pending. Improved. DC per primary. CASSIE HUNTER May 26, 2017 09:36
[2017-05-26] MEDS ORDERED: HYDROcodone/APAP 5/325MG 1 TAB TABLET PO PRN (09:45)
[2017-05-26 11:00] VITALS: BP 118/74
--- NOTE | 2017-05-26 11:25 | PDOC3 ---
Discharge Summary [facility] Date of Admission: May 23, 2017 Discharge Date: May 26, 2017 Admitting Diagnosis . ABd pain, neg work up except for mILD ileus on KUB, could 2/2 GERD less likely tho since lower ABD, ? colitis, vs. menstruation cramps, adhesion of previous abd sx may contribute too Allergy to IV dye and norco lortab etc- SOA with IV dye Obesity BMI 27 Hypokalemia constipatION GERD Problems: Final Diagnosis CONSULTS GI Brief Hospital Course Ms. Gil is a 27 old f, Came for LLQ abd pain, sometimes related to period, had multiple abd sx before, started to take control pill for the pain with PCP, neg work up except for mILD ileus on KUB, could 2/2 GERD less likely tho since lower ABD, ? colitis, vs. menstruation cramps, adhesion of previous abd sx may contribute too. abd pain better, had BM. EATS fine. dc home dc time 35min General: Alert, Oriented X3, Cooperative, No acute distress Heart: Regular rate, Normal S1, Normal S2 Lungs: Clear Abdomen: Normal bowel sounds, Soft, No hepatosplenomegaly, No masses, Other ( lower abd mild tenderness, no gaarding or rebound) Extremities: No clubbing, No cyanosis, No edema, Normal pulses, No tenderness/ swelling Skin: No rashes, No breakdown, No significant lesion Patient History: Patient reports no known family medical history. Problems: Disposition home CONDITION AT DISCHARGE: Improved Diet regular Scheduled PRN Hydrocodone Bit/Acetaminophen (Hydrocodone-Apap 5-325 ), 1 TAB PO PRN Q4HRS PRN for PAIN Follow Up pcp in 2 weeks JEWEL HERNANDEZ MD May 26, 2017 11:25
== END 2017-05-26 12:56 | disposition home or self-care (01) | DRG 394 ==
LOC: ER 11:37 → 4 NORTH 14:59
PROVIDERS: ADMIT Internal Medicine; ATTEND Internal Medicine
DX: K66.0 Peritoneal adhesions (postprocedural) (postinfection) (principal); K56.7 Ileus, unspecified; K52.9 Noninfective gastroenteritis and colitis, unspecified; K21.9 Gastro-esophageal reflux disease without esophagitis; E66.9 Obesity, unspecified; Z68.27 Body mass index [BMI] 27.0-27.9, adult; E87.6 Hypokalemia; K59.00 Constipation, unspecified; F17.210 Nicotine dependence, cigarettes, uncomplicated; F12.90 Cannabis use, unspecified, uncomplicated; R25.2 Cramp and spasm; Z80.1 Family history of malignant neoplasm of trachea, bronchus and lung; Z90.49 Acquired absence of other specified parts of digestive tract; Z91.041 Radiographic dye allergy status
CPT/HCPCS: 36415; 74022; 74250; 76700; 80048; 80076; 80307; 81001; 81025; 82533; 82550; 83690; 85025; 85610; 85730; 87086; 96361; 96374; 96375; J2270; J2405; J7030; S0028; 99285-25; G0479

== ENCOUNTER 2018-07-04 21:38 | Emergency (ER) | payer SELFPAY ==
[~2018-07-04] VITALS: Ht 165.1 cm; Wt 72.6 kg
[~2018-07-04 21:38] MED LIST changes: +HYDR-2761 PO; +HYDR-3164 PO; -HYDR-971 PO; -OXYC-323 PO; +OXYC1TAB15 PO
[2018-07-04 22:29] LABS: BASO % 1 % (0-3); EOS # 0.1 x10^3/uL (0.0-0.7); EOS % 1 % (0-3); HEMATOCRIT 48.1 % (36.0-47.0); HEMOGLOBIN 16.4 g/dL (12.0-15.5); LYMPH # 2.6 x10^3/uL (1.0-4.8); LYMPH % 29 % (24-48); MEAN CORPUSCULAR HEMOGLOBIN 30 pg (25-35); MEAN CORPUSCULAR HGB CONC 34 g/dL (31-37); MEAN CORPUSCULAR VOLUME 88 fL (79-100); MONO # 0.9 x10^3/uL (0.0-1.1); MONO % 10 % (0-9); NEUT # 5.4 x10^3uL (1.8-7.7); NEUT % 60 % (31-73); PLATELET COUNT 303 x10^3/uL (140-400); RED CELL DISTRIBUTION WIDTH 12.8 % (11.5-14.5)
[2018-07-04 22:30] LABS: BILIRUBIN,URINE SMALL (NEG); CLARITY,URINE CLOUDY; COLOR,URINE ORANGE; NITRITE,URINE NEGATIVE (NEG); PROTEIN,URINE 100 mg/dL (NEG-TRACE)
[2018-07-04] MEDS ORDERED: MORPHINE SULFATE 4 MG/ML VIAL. IV ONE ×2 (22:30→22:45)
[2018-07-04] MEDS ORDERED: IV NORMAL SALINE 1000ML BAG 1,000 ML IV ONE (22:30)
[2018-07-04] MEDS ORDERED: ONDANSETRON PF 4 MG/2 ML VIAL. IV ONE (22:30)
[2018-07-04 22:41] LABS: BACTERIA,URINE MANY /HPF (0-FEW); SQUAMOUS EPITHELIAL CELL,UR MANY /LPF
[2018-07-04 22:45] LABS: ALBUMIN 4.4 g/dL (3.4-5.0); ALBUMIN/GLOBULIN RATIO 0.9 (1.0-1.7); CALCIUM 9.7 mg/dL (8.5-10.1); CREATININE 1.2 mg/dL (0.6-1.0); GFR 65.7; TOTAL BILIRUBIN 0.8 mg/dL (0.2-1.0); TOTAL PROTEIN 9.4 g/dL (6.4-8.2)
[2018-07-04 22:46] LABS: POTASSIUM 2.9 mmol/L (3.5-5.1)
[2018-07-04] MEDS ORDERED: ZIPRASIDONE IM 20 MG VIAL. IM ONE (23:00)
--- NOTE | 2018-07-04 23:02 | PHYS DOC ---
Past Medical History Past Medical History: Other Additional Past Medical Histor: "TWISTED COLON" Past Surgical History: Cholecystectomy, Other Additional Past Surgical Histo: Ectopic,Twisted colon Alcohol Use: Rarely Drug Use: Marijuana Adult General Chief Complaint Chief Complaint: ABDOMINAL PAIN HPI HPI Patient is a 28 year old AA female who presents to the ER with complaints of left lower abdominal pain that wraps around to her back for the last 3 days. Pt states that she has pain every month when she is on her menstrual cycle. Pt states her LMP began on 06/30/18. She has tried taking tylenol and flexeril for relief of her pain but has been unable to keep medications down. Pt states she has been nauseated and vomiting. She denies any diarrhea and reports that she cannot recall when her last bowel movement was. PT denies any abnormal vaginal discharge, dysuria, urinary frequency, or foul smelling urine. She denies any fever, cough, or congestion. Pt states that 3 years ago she had intussusception and the pain is similar to that pain. Her pain is a 10/10 at this time and is alleviated by nothing. Family states that patient has not been able to eat or drink anything today. Pt states that she smokes 1/4-1/2 a pack of cigarettes a day and that she smokes marijuana occasionally, she has not smoked marijuana for the last week. Review of Systems Review of Systems Constitutional: Denies fever or chills [] Respiratory: Denies cough or shortness of breath [] GI: see HPI : Denies dysuria or hematuria [] Musculoskeletal: reports left low back pain Integument: Denies rash or skin lesions [] Neurologic: Denies headache, focal weakness or sensory changes [] All other systems were reviewed and found to be within normal limits, except as documented in this note. Current Medications Current Medications Current Medications Medications (Trade) Dose Ordered Sig/Geoff Start Time Stop Time Status Last Admin Dose Admin Morphine Sulfate (Morphine Sulfate) 4 mg 1X ONCE 07/04/18 22:45 07/04/18 22:49 DC Ondansetron HCl (Zofran) 4 mg 1X ONCE 07/04/18 22:30 07/04/18 22:31 DC 07/04/18 22:30 4 MG Potassium Chloride (Klor-Con) 40 meq 1X ONCE 07/05/18 00:15 07/05/18 00:16 DC 07/05/18 00:15 40 MEQ Sodium Chloride 1,000 ml @ 1,000 mls/hr 1X ONCE 07/04/18 22:30 07/04/18 23:29 DC 07/04/18 22:31 1,000 MLS/HR Ziprasidone (Geodon Im) 10 mg 1X ONCE 07/04/18 23:00 07/04/18 23:01 DC 07/04/18 23:01 10 MG Allergies Allergies Allergies Coded Allergies Type Severity Reaction Last Updated Verified Iodinated Contrast- Oral and IV Dye Allergy Intermediate Shortness of breath 05/22/17 Yes oxycodone Allergy Intermediate 05/25/17 Yes peanut Allergy Intermediate 05/25/17 Yes Physical Exam Physical Exam Constitutional: Well developed, well nourished, tearful, non-toxic appearance. [ ] HENT: Normocephalic, atraumatic, bilateral external ears normal, oropharynx moist, no oral exudates, nose normal. [] Eyes: PERRLA, conjunctiva normal, no discharge. [] Cardiovascular: Heart rate regular rhythm, tachycardia, no murmur [] Lungs & Thorax: Bilateral breath sounds clear to auscultation, shallow with mild hyperventilation noted Abdomen: Bowel sounds normal, soft, LLQ tenderness, no masses, no pulsatile masses. [] Skin: Warm, dry, no erythema, no rash. [] Back: bilateral CVA tenderness [] Extremities: No cyanosis, no clubbing, ROM intact, no edema. [] Neurologic: Alert and oriented X 3, normal motor function, normal sensory function, no focal deficits noted. [] Psychologic: Dramatic Affect, judgement normal Current Patient Data Vital Signs Vital Signs Date Time Temp Pulse Resp B/P (MAP) Pulse Ox O2 Delivery O2 Flow Rate FiO2 07/04/18 23:30 80 16 103/57 (72) 100 Room Air 07/04/18 22:00 97.1 97.1 Lab Values Laboratory Tests Test 07/04/18 22:00 07/04/18 22:02 07/04/18 22:10 Urine Opiates Screen Neg (NEG) Urine Methadone Screen Neg (NEG) Urine Barbiturates Neg (NEG) Urine Phencyclidine Screen Neg (NEG) Urine Amphetamine/Methamphetamine Neg (NEG) Urine Benzodiazepines Screen Neg (NEG) Urine Cocaine Screen Neg (NEG) Urine Cannabinoids Screen Pos (NEG) Urine Ethyl Alcohol Neg (NEG) POC Urine HCG, Qualitative Hcg negative (Negative) White Blood Count 9.0 x10^3/uL (4.0-11.0) Red Blood Count 5.50 x10^6/uL (3.50-5.40) H Hemoglobin 16.4 g/dL (12.0-15.5) H Hematocrit 48.1 % (36.0-47.0) H Mean Corpuscular Volume 88 fL (79-100) Mean Corpuscular Hemoglobin 30 pg (25-35) Mean Corpuscular Hemoglobin Concent 34 g/dL (31-37) Red Cell Distribution Width 12.8 % (11.5-14.5) Platelet Count 303 x10^3/uL (140-400) Neutrophils (%) (Auto) 60 % (31-73) Lymphocytes (%) (Auto) 29 % (24-48) Monocytes (%) (Auto) 10 % (0-9) H Eosinophils (%) (Auto) 1 % (0-3) Basophils (%) (Auto) 1 % (0-3) Neutrophils # (Auto) 5.4 x10^3uL (1.8-7.7) Lymphocytes # (Auto) 2.6 x10^3/uL (1.0-4.8) Monocytes # (Auto) 0.9 x10^3/uL (0.0-1.1) Eosinophils # (Auto) 0.1 x10^3/uL (0.0-0.7) Basophils # (Auto) 0.0 x10^3/uL (0.0-0.2) Urine Collection Type Unknown Urine Color Protivin Urine Clarity Cloudy Urine pH 6.0 Urine Specific [place] >=1.030 Urine Protein 100 mg/dL (NEG-TRACE) Urine Glucose (UA) Negative mg/dL (NEG) Urine Ketones (Stick) Trace mg/dL (NEG) Urine Blood Large (NEG) Urine Nitrite Negative (NEG) Urine Bilirubin Small (NEG) Urine Urobilinogen Dipstick 1.0 mg/dL (0.2 mg/dL) Urine Leukocyte Esterase Small (NEG) Urine RBC 11-20 /HPF (0-2) Urine WBC 5-10 /HPF (0-4) Urine Squamous Epithelial Cells Many /LPF Urine Bacteria Many /HPF (0-FEW) Urine Mucus Marked /LPF Sodium Level 137 mmol/L (136-145) Potassium Level 2.9 mmol/L (3.5-5.1) *L Chloride Level 96 mmol/L (98-107) L Carbon Dioxide Level 25 mmol/L (21-32) Anion Gap 16 (6-14) H Blood Urea Nitrogen 10 mg/dL (7-20) Creatinine 1.2 mg/dL (0.6-1.0) H Estimated GFR (Cockcroft-Gault) 65.7 BUN/Creatinine Ratio 8 (6-20) Glucose Level 104 mg/dL (70-99) H Calcium Level 9.7 mg/dL (8.5-10.1) Total Bilirubin 0.8 mg/dL (0.2-1.0) Aspartate Amino Transferase (AST) 31 U/L (15-37) Alanine Aminotransferase (ALT) 41 U/L (14-59) Alkaline Phosphatase 58 U/L (46-116) Total Protein 9.4 g/dL (6.4-8.2) H Albumin 4.4 g/dL (3.4-5.0) Albumin/Globulin Ratio 0.9 (1.0-1.7) L Laboratory Tests 07/04/18 22:10 Laboratory Tests 07/04/18 22:10 EKG EKG [] Radiology/Procedures Radiology/Procedures PROCEDURE: CT ABDOMEN PELVIS WO CONTRAST Abdominal and Pelvis CT, Without Contrast: History: Left flank pain. Comparison: May 22, 2017. Procedure: Axial images are obtained of the abdomen and pelvis, without IV or oral contrast. CT Abdomen without Contrast: Findings: Evaluation of solid organs is limited without contrast. Evaluation of stomach and bowel is limited without oral contrast. Liver: Normal. Spleen: Normal. Pancreas: Normal. Adrenal Glands: Normal. Kidneys: Normal. There is no free air or free fluid. There is no lymphadenopathy. Impression: Please see CT Pelvis without Contrast. End Impression. CT Pelvis without Contrast: Findings: The urinary bladder is collapsed. There is no free fluid. There is no lymphadenopathy. There is no pericolonic inflammation identified. The appendix is normal. Impression: No evidence of urolithiasis or obstructive uropathy. End impression PQRS Compliance Statement: One or more of the following individualized dose reduction techniques were utilized for this examination: 1. Automated exposure control 2. Adjustment of the mA and/or kV according to patient size 3. Use of iterative reconstruction technique Course & Med Decision Making Course & Med Decision Making Pertinent Labs and Imaging studies reviewed. (See chart for details) 2247- upon return from CT pt continues to moan and cry, Dangelo ordered for concerns of psychosomatic complaint 2306- PT report given to Dr. Tomlinson who assumes care of patient at this time, advised of pending CT and lab results. [] Dragon Disclaimer Dragon Disclaimer This electronic medical record was generated, in whole or in part, using a voice recognition dictation system. Departure Departure Impression: Primary Impression: Abdominal pain Additional Impressions: Nausea and vomiting Hypokalemia Disposition: HOME, SELF-CARE Condition: STABLE Referrals: NO PCP (PCP) ELTON MATTA Jr, MD, SCOTT S MD Patient Instructions: Abdominal Pain (Nonspecific), Hypokalemia-Brief, Nausea and Vomiting, Arfo-[id number], Potassium Content of Foods Scripts Hydrocodone/Apap 5-325 (NORCO 5-325 TABLET) 1 Each Tablet 1 TAB PO PRN Q6HRS PRN for PAIN, #10 TAB 0 Refills Prov: EULALIO TOMLINSON DO 07/05/18 Ondansetron (ONDANSETRON ODT) 4 Mg Tab.rapdis 1 TAB PO PRN Q6-8HRS for VOMITING, #16 TAB Prov: EULALIO TOMLINSON DO 07/05/18 Attending Signature Attending Signature 2300- Sign out received from Domingo COMPTOMETRIST for patient with abdominal pain. Patient pending CT imaging. Labs reviewed. Patient seen and evaluated by myself. Constitutional: Well developed, well nourished, non-toxic appearance. [] Abdomen: Soft, Mild LLQ tenderness Neurologic: Alert and oriented X 3, no focal deficits noted. [] Psychologic: Calm, affect normal. 0010- CT without acute process. Patient stable for discharge with outpatient follow-up with PCP/[employer] ENGINEER/GI. [employer]FT [employer] DES[employer] ENGINEER and GI referrals provided. Discussed findings and plan with patient and family, who acknowledge understanding and agreement. I have personally interviewed and examined the patient. All charts, labs, and imaging studies were reviewed. I agree with the PA/COMPTOMETRIST's findings, exam, and plan. Problem Qualifiers Primary Impression: Abdominal pain Abdominal location: left lower quadrant Qualified Codes: R10.32 - Left lower quadrant pain Additional Impressions: Nausea and vomiting Vomiting type: unspecified Vomiting Intractability: unspecified Qualified Codes: R11.2 - Nausea with vomiting, unspecified HANNAH HAYDEN APRN Jul 04, 2018 23:02 EULALIO TOMLINSON DO Jul 05, 2018 00:06
[2018-07-04 23:08] LABS: BARBITURATES NEG (NEG); BENZODIAZEPINES NEG (NEG); CANNABINOIDS POS (NEG); COCAINE NEG (NEG); METHADONE NEG (NEG); OPIATES NEG (NEG); PHENCYCLIDINE NEG (NEG)
[2018-07-04 23:09] LABS: AMPHETAMINE/METHAMPHETAMINE NEG (NEG)
--- NOTE | 2018-07-04 23:11 | RAD ---
Abdominal and Pelvis CT, Without Contrast: History: Left flank pain. Comparison: May 22, 2017. Procedure: Axial images are obtained of the abdomen and pelvis, without IV or oral contrast. CT Abdomen without Contrast: Findings: Evaluation of solid organs is limited without contrast. Evaluation of stomach and bowel is limited without oral contrast. Liver: Normal. Spleen: Normal. Pancreas: Normal. Adrenal Glands: Normal. Kidneys: Normal. There is no free air or free fluid. There is no lymphadenopathy. Impression: Please see CT Pelvis without Contrast. End Impression. CT Pelvis without Contrast: Findings: The urinary bladder is collapsed. There is no free fluid. There is no lymphadenopathy. There is no pericolonic inflammation identified. The appendix is normal. Impression: No evidence of urolithiasis or obstructive uropathy. End impression PQRS Compliance Statement: One or more of the following individualized dose reduction techniques were utilized for this examination: 1. Automated exposure control 2. Adjustment of the mA and/or kV according to patient size 3. Use of iterative reconstruction technique Electronically signed by: Héctor Puckett III, MD (07/04/2018 11:07 PM) [facility]
[2018-07-04 23:30] VITALS: BP 103/57
[2018-07-05] MEDS ORDERED: HYDR-3164 PO (00:12)
[2018-07-05] MEDS ORDERED: ONDA4TAB12 PO (00:12)
[2018-07-05] MEDS ORDERED: POTASSIUM CHLORIDE 20 MEQ TABLET.ER. PO ONE (00:15)
== END 2018-07-05 00:30 | disposition home or self-care (01) ==
LOC: ER 21:38
DX: R10.32 Left lower quadrant pain (principal); R11.2 Nausea with vomiting, unspecified; E87.6 Hypokalemia; M54.5 Low back pain; F17.210 Nicotine dependence, cigarettes, uncomplicated; F12.20 Cannabis dependence, uncomplicated; Z90.49 Acquired absence of other specified parts of digestive tract; Z88.5 Allergy status to narcotic agent; Z91.010 Allergy to peanuts; Z91.041 Radiographic dye allergy status
CPT/HCPCS: 36415; 74176; 80053; 80307; 81001; 81025; 85025; 87086; 96361; 96372; 96374; 96375; 99284; J2270; J2405; J3486; J7030

== ENCOUNTER 2018-09-22 12:03 | Emergency (ER) | payer OTHER ==
[~2018-09-22] VITALS: Ht 162.6 cm; Wt 79.4 kg
[~2018-09-22 12:03] MED LIST changes: +ONDA4TAB12 PO
[2018-09-22] MEDS ORDERED: ONDANSETRON PF 4 MG/2 ML VIAL. IV ONE (12:45)
[2018-09-22] MEDS ORDERED: IV NORMAL SALINE 1000ML BAG 1,000 ML IV ONE (12:45)
[2018-09-22] MEDS ORDERED: fentaNYL PF VIAL 100 MCG/2 ML VIAL IV ONE (12:45)
[2018-09-22 12:51] LABS: BILIRUBIN,URINE MODERATE (NEG); CLARITY,URINE CLEAR; COLOR,URINE AMBER; NITRITE,URINE NEGATIVE (NEG); PROTEIN,URINE 30 mg/dL (NEG-TRACE)
[2018-09-22 12:56] LABS: BARBITURATES NEG (NEG); BENZODIAZEPINES NEG (NEG); CANNABINOIDS POS (NEG); COCAINE NEG (NEG); METHADONE NEG (NEG); OPIATES NEG (NEG); PHENCYCLIDINE NEG (NEG)
[2018-09-22 12:57] LABS: AMPHETAMINE/METHAMPHETAMINE NEG (NEG)
[2018-09-22 13:06] LABS: BASO % 0 % (0-3); EOS # 0.1 x10^3/uL (0.0-0.7); EOS % 1 % (0-3); HEMATOCRIT 47.1 % (36.0-47.0); HEMOGLOBIN 15.6 g/dL (12.0-15.5); LYMPH # 1.8 x10^3/uL (1.0-4.8); LYMPH % 27 % (24-48); MEAN CORPUSCULAR HEMOGLOBIN 29 pg (25-35); MEAN CORPUSCULAR HGB CONC 33 g/dL (31-37); MEAN CORPUSCULAR VOLUME 87 fL (79-100); MONO # 0.8 x10^3/uL (0.0-1.1); MONO % 11 % (0-9); NEUT # 4.1 x10^3uL (1.8-7.7); NEUT % 61 % (31-73); PLATELET COUNT 294 x10^3/uL (140-400); RED BLOOD COUNT 5.41 x10^6/uL (3.50-5.40); RED CELL DISTRIBUTION WIDTH 12.7 % (11.5-14.5); WHITE BLOOD COUNT 6.7 x10^3/uL (4.0-11.0)
[2018-09-22 13:09] LABS: BACTERIA,URINE 0 /HPF (0-FEW); SQUAMOUS EPITHELIAL CELL,UR MANY /LPF; WBC,URINE 0 /HPF (0-4)
[2018-09-22 13:18] LABS: CALCIUM 9.5 mg/dL (8.5-10.1); CREATININE 0.9 mg/dL (0.6-1.0); GFR 91.6
[2018-09-22 13:26] LABS: ALBUMIN/GLOBULIN RATIO 0.9 (1.0-1.7); TOTAL BILIRUBIN 0.9 mg/dL (0.2-1.0); TOTAL PROTEIN 8.7 g/dL (6.4-8.2)
[2018-09-22] MEDS ORDERED: POTASSIUM CHLORIDE 20 MEQ TABLET.ER. PO ONE (13:30)
--- NOTE | 2018-09-22 14:19 | RAD ---
Examination: CT of the abdomen pelvis without contrast COMPARISON: 06/26/2018 TECHNIQUE: Axial CT images of the abdomen pelvis were performed without contrast. Coronal and sagittal reformats are performed Exposure: One or more of the following individualized dose reduction techniques were utilized for this examination: 1. Automated exposure control 2. Adjustment of the mA and/or kV according to patient size 3. Use of iterative reconstruction technique FINDINGS: The bibasilar lungs are clear. No evidence of free air identified in the abdomen. The visualized noncontrasted liver, spleen, adrenals grossly appears unremarkable. Cholecystectomy clips identified. The stomach is mildly distended. Visualized pancreas grossly appears unremarkable. The small bowel is nondilated. The appendix is normal. There is mild thickened appearance of the wall of the descending colon. No evidence of intrarenal collecting system calculi or hydronephrosis. Urinary bladder is mildly distended. No evidence of lytic bony destructive lesion. IMPRESSION: 1. Mild thickened appearance of the wall of the descending colon could be due to nondistention or mild colitis. 2. Normal-appearing appendix. Electronically signed by: Allan Jim MD (09/22/2018 2:16 PM) [facility]
[2018-09-22 14:30] VITALS: BP 105/71
[2018-09-22] MEDS ORDERED: METR500T PO (14:57)
[2018-09-22] MEDS ORDERED: HYDR-3164 PO (14:57)
[2018-09-22] MEDS ORDERED: PROC10TA57 PO (14:57)
[2018-09-22] MEDS ORDERED: CIPR500T94 PO (14:57)
[2018-09-22] MEDS ORDERED: ONDA4TAB7 PO (14:57)
--- NOTE | 2018-09-22 14:58 | PHYS DOC ---
Past Medical History Past Medical History: Other Additional Past Medical Histor: "TWISTED COLON" (SUN LI APRN) Past Surgical History: Cholecystectomy, Other Additional Past Surgical Histo: Ectopic,Twisted colon (SUN LI APRN) Alcohol Use: Rarely Drug Use: Marijuana (SUN LI APRN) Adult General Chief Complaint Chief Complaint: ABDOMINAL PAIN HPI HPI Patient is a 28 year old female with history of cholecystectomy, who presents the ED today complaining of nausea, vomiting, for 5 days. Patient also complaining of 9 out of 10 constant bilateral lower abdominal pain that began yesterday. Patient denies any diarrhea. Denies any hematemesis. Denies any chance she is constipated. Denies any fever. Patient describes the pain as sharp. She states she has been using marijuana to try and alleviate the pain and also help her sleep. (SUN LI APRN) Review of Systems Review of Systems Constitutional: Denies fever or chills [] Eyes: Denies change in visual acuity, redness, or eye pain [] HENT: Denies nasal congestion or sore throat [] Respiratory: Denies cough or shortness of breath [] Cardiovascular: No additional information not addressed in HPI [] GI: Reports bilateral lower abdominal pain with nausea and vomiting denies bloody stools or diarrhea [] : Denies dysuria or hematuria [] Musculoskeletal: Denies back pain or joint pain [] Integument: Denies rash or skin lesions [] Neurologic: Denies headache, focal weakness or sensory changes [] All other systems were reviewed and found to be within normal limits, except as documented in this note. (SUN LI APRN) Current Medications Current Medications Current Medications Medications (Trade) Dose Ordered Sig/Geoff Start Time Stop Time Status Last Admin Dose Admin Fentanyl Citrate (Fentanyl 2ml Vial) 50 mcg 1X ONCE 09/22/18 12:45 09/22/18 12:46 DC 09/22/18 13:09 50 MCG Ondansetron HCl (Zofran) 4 mg 1X ONCE 09/22/18 12:45 09/22/18 12:46 DC 09/22/18 13:09 4 MG Potassium Chloride (Klor-Con) 40 meq 1X ONCE 09/22/18 13:30 09/22/18 13:31 DC 09/22/18 13:55 40 MEQ Sodium Chloride 1,000 ml @ 1,000 mls/hr 1X ONCE 09/22/18 12:45 09/22/18 13:44 DC 09/22/18 13:09 1,000 MLS/HR (EULALIO TOMLINSON DO) Allergies Allergies Allergies Coded Allergies Type Severity Reaction Last Updated Verified Iodinated Contrast- Oral and IV Dye Allergy Intermediate Shortness of breath 05/22/17 Yes oxycodone Allergy Intermediate 05/25/17 Yes peanut Allergy Intermediate 05/25/17 Yes (EULALIO TOMLINSON DO) Physical Exam Physical Exam Constitutional: Well developed, well nourished, no acute distress, non-toxic appearance. [] HENT: Normocephalic, atraumatic, bilateral external ears normal, oropharynx moist, no oral exudates, nose normal. [] Eyes: PERRLA, EOMI, conjunctiva normal, no discharge. [] Neck: Normal range of motion, no tenderness, supple, no stridor. [] Cardiovascular:Heart rate regular rhythm, no murmur [] Lungs & Thorax: Bilateral breath sounds clear to auscultation [] Abdomen: Bowel sounds normal, soft, diffuse tenderness to bilateral lower abdomen, negative psoas sign, negative obturator sign, negative Yung sign, no masses, no pulsatile masses. Pelvic exam External pelvic appears normal, cervix is visualized, closed, no CMT, no adnexal tenderness. Skin: Warm, dry, no erythema, no rash. [] Back: No tenderness, no CVA tenderness. [] Extremities: No tenderness, no cyanosis, no clubbing, ROM intact, no edema. [] Neurologic: Alert and oriented X 3, normal motor function, normal sensory function, no focal deficits noted. [] Psychologic: Affect normal, judgement normal, mood normal. [] (SUN LI APRN) Current Patient Data Vital Signs Vital Signs Date Time Temp Pulse Resp B/P (MAP) Pulse Ox O2 Delivery O2 Flow Rate FiO2 09/22/18 14:30 66 16 105/71 (82) 98 Room Air 09/22/18 12:15 98.8 98.8 (EULALIO TOMLINSON DO) Lab Values Laboratory Tests Test 09/22/18 12:15 09/22/18 12:24 09/22/18 12:30 09/22/18 13:00 Urine Collection Type Unknown Urine Color Yuliana Urine Clarity Clear Urine pH 6.0 Urine Specific [place] >=1.030 Urine Protein 30 mg/dL (NEG-TRACE) Urine Glucose (UA) Negative mg/dL (NEG) Urine Ketones (Stick) >=80 mg/dL (NEG) Urine Blood Trace (NEG) Urine Nitrite Negative (NEG) Urine Bilirubin Moderate (NEG) Urine Urobilinogen Dipstick 1.0 mg/dL (0.2 mg/dL) Urine Leukocyte Esterase Negative (NEG) Urine RBC 1-2 /HPF (0-2) Urine WBC 0 /HPF (0-4) Urine Squamous Epithelial Cells Many /LPF Urine Bacteria 0 /HPF (0-FEW) Urine Mucus Marked /LPF Urine Opiates Screen Neg (NEG) Urine Methadone Screen Neg (NEG) Urine Barbiturates Neg (NEG) Urine Phencyclidine Screen Neg (NEG) Urine Amphetamine/Methamphetamine Neg (NEG) Urine Benzodiazepines Screen Neg (NEG) Urine Cocaine Screen Neg (NEG) Urine Cannabinoids Screen Pos (NEG) Urine Ethyl Alcohol Neg (NEG) POC Urine HCG, Qualitative Hcg negative (Negative) Chlamydia DNA Probe Negative (Negative) Neisseria gonorrhoeae DNA Probe Negative (Negative) White Blood Count 6.7 x10^3/uL (4.0-11.0) Red Blood Count 5.41 x10^6/uL (3.50-5.40) H Hemoglobin 15.6 g/dL (12.0-15.5) H Hematocrit 47.1 % (36.0-47.0) H Mean Corpuscular Volume 87 fL (79-100) Mean Corpuscular Hemoglobin 29 pg (25-35) Mean Corpuscular Hemoglobin Concent 33 g/dL (31-37) Red Cell Distribution Width 12.7 % (11.5-14.5) Platelet Count 294 x10^3/uL (140-400) Neutrophils (%) (Auto) 61 % (31-73) Lymphocytes (%) (Auto) 27 % (24-48) Monocytes (%) (Auto) 11 % (0-9) H Eosinophils (%) (Auto) 1 % (0-3) Basophils (%) (Auto) 0 % (0-3) Neutrophils # (Auto) 4.1 x10^3uL (1.8-7.7) Lymphocytes # (Auto) 1.8 x10^3/uL (1.0-4.8) Monocytes # (Auto) 0.8 x10^3/uL (0.0-1.1) Eosinophils # (Auto) 0.1 x10^3/uL (0.0-0.7) Basophils # (Auto) 0.0 x10^3/uL (0.0-0.2) Sodium Level 136 mmol/L (136-145) Potassium Level 3.0 mmol/L (3.5-5.1) L Chloride Level 95 mmol/L (98-107) L Carbon Dioxide Level 26 mmol/L (21-32) Anion Gap 15 (6-14) H Blood Urea Nitrogen 13 mg/dL (7-20) Creatinine 0.9 mg/dL (0.6-1.0) Estimated GFR (Cockcroft-Gault) 91.6 BUN/Creatinine Ratio 14 (6-20) Glucose Level 83 mg/dL (70-99) Calcium Level 9.5 mg/dL (8.5-10.1) Total Bilirubin 0.9 mg/dL (0.2-1.0) Aspartate Amino Transferase (AST) 25 U/L (15-37) Alanine Aminotransferase (ALT) 47 U/L (14-59) Alkaline Phosphatase 53 U/L (46-116) Total Protein 8.7 g/dL (6.4-8.2) H Albumin 4.0 g/dL (3.4-5.0) Albumin/Globulin Ratio 0.9 (1.0-1.7) L Lipase 179 U/L (73-393) Ethyl Alcohol Level < 10 mg/dL (0-10) Laboratory Tests 09/22/18 13:00 Laboratory Tests 09/22/18 13:00 Microbiology 09/22/18 Wet Prep - Final, Complete (EULALIO TOMLINSON DO) EKG EKG [] (SUN LI APRN) Radiology/Procedures Radiology/Procedures []PROCEDURE: CT ABDOMEN PELVIS WO CONTRAST Examination: CT of the abdomen pelvis without contrast COMPARISON: 06/26/2018 TECHNIQUE: Axial CT images of the abdomen pelvis were performed without contrast. Coronal and sagittal reformats are performed Exposure: One or more of the following individualized dose reduction techniques were utilized for this examination: 1. Automated exposure control 2. Adjustment of the mA and/or kV according to patient size 3. Use of iterative reconstruction technique FINDINGS: The bibasilar lungs are clear. No evidence of free air identified in the abdomen. The visualized noncontrasted liver, spleen, adrenals grossly appears unremarkable. Cholecystectomy clips identified. The stomach is mildly distended. Visualized pancreas grossly appears unremarkable. The small bowel is nondilated. The appendix is normal. There is mild thickened appearance of the wall of the descending colon. No evidence of intrarenal collecting system calculi or hydronephrosis. Urinary bladder is mildly distended. No evidence of lytic bony destructive lesion. IMPRESSION: 1. Mild thickened appearance of the wall of the descending colon could be due to nondistention or mild colitis. 2. Normal-appearing appendix. Electronically signed by: Allan Jim MD (09/22/2018 2:16 PM) [facility] DICTATED and SIGNED BY: ALLAN JIM MD DATE: 09/22/18 1409 (SUN LI APRN) Course & Med Decision Making Course & Med Decision Making Pertinent Labs and Imaging studies reviewed. (See chart for details) This is a 28-year-old female patient presenting to the ED today with lower abdominal pain, nausea, vomiting, symptoms for 4 days. CBC with a normal WBC, CMP with potassium of 3.0, patient was given oral potassium replacement. CT of the abdomen and pelvic was noted for possible mild colitis or none distention of the abdomen. I highly suspect this patient has mild colitis. Her white count is normal. She is willing to go home. She is afebrile. She'll be discharged with Cipro, Flagyl. Also discharged with Zofran, Compazine and hydrocodone as needed for pain.. Follow-up with GI in the next 1 week. Instructed to return to the ED at any point symptoms worsen. Also positive for BV, discharge and Flagyl (SUN LI APRN) Dragon Disclaimer Dragon Disclaimer This electronic medical record was generated, in whole or in part, using a voice recognition dictation system. (SUN LI APRN) Departure Departure Impression: Primary Impression: Bacterial vaginitis Additional Impression: Colitis Disposition: 01 HOME, SELF-CARE Condition: STABLE Referrals: UNKNOWN PCP NAME (PCP) VANCE PERALTA MD follow up in one week Patient Instructions: Bacterial Vaginosis, Colitis Additional Instructions: You were evaluated in the emergency room for abdominal pain your CT is suspicious for mild colitis, your wet prep was also noted for bacterial vaginosis. We'll put you on medications, ensure you complete them. 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 Come back to the ED at any point symptoms worsen. Scripts Prochlorperazine Maleate (Compazine) 10 Mg Tablet 10 MG PO TID PRN for NAUSEA, #30 TAB Prov: SUN LI APRN 09/22/18 Ondansetron Hcl (ZOFRAN) 4 Mg Tablet 1 TAB PO Q6HRS, #20 TAB Prov: SUN LI APRN 09/22/18 Metronidazole (FLAGYL) 500 Mg Tablet 500 MG PO TID, #30 TAB Prov: SUN LI APRN 09/22/18 Ciprofloxacin Hcl (CIPRO) 500 Mg Tablet 1 TAB PO BID, #20 TAB Prov: SUN LI APRN 09/22/18 Attending Signature Attending Signature I have reviewed the PA/QUALITY ASSURANCE AUDITOR's note and plan of care. I was available for consultation as needed during the patient's visit in the emergency department. I agree with the clinical impression, plan, and disposition. (EULALIO TOMLINSON DO) Problem Qualifiers SUN LI APRN Sep 22, 2018 14:58 EULALIO TOMLINSON DO Oct 01, 2018 14:02
[2018-09-24 13:15] LABS: GC PROBE Negative (Negative)
[2018-09-26] MEDS ORDERED: Pantoprazole PO (13:32)
[2018-09-26] MEDS ORDERED: TRAM50TA PO (13:32)
[2018-09-26] MEDS ORDERED: LACT1CAP19 PO (13:32)
== END 2018-09-22 13:15 | disposition home or self-care (01) ==
LOC: ER 12:03
DX: K52.89 Other specified noninfective gastroenteritis and colitis (principal); N76.0 Acute vaginitis; B96.89 Other specified bacterial agents as the cause of diseases classified elsewhere; R11.2 Nausea with vomiting, unspecified; Z90.49 Acquired absence of other specified parts of digestive tract; Z88.5 Allergy status to narcotic agent; Z91.041 Radiographic dye allergy status; Z91.010 Allergy to peanuts
CPT/HCPCS: 36415; 74176; 80053; 80307; 81001; 81025; 83690; 85025; 87491; 87591; 96361; 96374; 96375; 99284; G0480; J2405; J3010; J7030; Q0111

== ENCOUNTER 2018-09-25 09:42 | Inpatient (IN) | payer OTHER ==
[~2018-09-25] VITALS: Ht 162.6 cm; Wt 79.4 kg
[~2018-09-25 09:42] MED LIST changes: +CIPR500T94 PO; +ONDA4TAB7 PO; +PROC10TA57 PO
[2018-09-25] MEDS ORDERED: FAMOTIDINE 20 MG/2 ML VIAL IVP ONE (10:00)
[2018-09-25] MEDS ORDERED: IV NORMAL SALINE 1000ML BAG 1,000 ML IV ONE ×2 (10:00→12:00)
[2018-09-25] MEDS ORDERED: HALOPERIDOL LACTATE 5 MG/ML VIAL. IVP ONE (10:00)
[2018-09-25] MEDS ORDERED: fentaNYL PF VIAL 100 MCG/2 ML VIAL IV ONE (10:00)
[2018-09-25] MEDS ORDERED: ONDANSETRON PF 4 MG/2 ML VIAL. IV ONE (10:00)
--- NOTE | 2018-09-25 10:07 | PHYS DOC ---
Past Medical History Past Medical History: Other Additional Past Medical Histor: "TWISTED COLON"; colitis Past Surgical History: Cholecystectomy, Other Additional Past Surgical Histo: Ectopic,Twisted colon Alcohol Use: Occasionally Drug Use: Marijuana Social History Narrative: last use 2 days ago Adult General Chief Complaint Chief Complaint: ABDOMINAL PAIN HPI HPI Patient is a 28 year old female who presents to the ED today with moderate lower abdominal pain that has been going on for almost a week. Patient was seen in the ED by me 3 days ago and was diagnosed with mild colitis, was sent home with Marina and Marilee. Patient went to see her GI doctor today, she had worsening pain and was sent to the ED via EMS. Patient presented to the ED crying out loud. Denies any nausea vomiting or diarrhea. Review of Systems Review of Systems Constitutional: Denies fever or chills [] Eyes: Denies change in visual acuity, redness, or eye pain [] HENT: Denies nasal congestion or sore throat [] Respiratory: Denies cough or shortness of breath [] Cardiovascular: No additional information not addressed in HPI [] GI: Reports worsening abdominal pain, denies nausea, vomiting, bloody stools or diarrhea [] : Denies dysuria or hematuria [] Musculoskeletal: Denies back pain or joint pain [] Integument: Denies rash or skin lesions [] Neurologic: Denies headache, focal weakness or sensory changes [] All other systems were reviewed and found to be within normal limits, except as documented in this note. Current Medications Current Medications Current Medications Medications (Trade) Dose Ordered Sig/Geoff Start Time Stop Time Status Last Admin Dose Admin Famotidine (Pepcid Vial) 20 mg 1X ONCE 09/25/18 10:00 09/25/18 10:01 DC 09/25/18 10:05 20 MG Fentanyl Citrate (Fentanyl 2ml Vial) 50 mcg 1X ONCE 09/25/18 10:00 09/25/18 10:01 DC 09/25/18 10:07 50 MCG Haloperidol Lactate (Haldol Inj) 5 mg 1X ONCE 09/25/18 10:00 09/25/18 10:01 DC 09/25/18 10:06 5 MG Ondansetron HCl (Zofran) 4 mg 1X ONCE 09/25/18 10:00 09/25/18 10:01 DC 09/25/18 10:06 4 MG Sodium Chloride 1,000 ml @ 1,000 mls/hr 1X ONCE 09/25/18 10:00 09/25/18 10:59 DC 09/25/18 10:05 1,000 MLS/HR Allergies Allergies Allergies Coded Allergies Type Severity Reaction Last Updated Verified Iodinated Contrast- Oral and IV Dye Allergy Intermediate Shortness of breath 05/22/17 Yes oxycodone Allergy Intermediate 05/25/17 Yes peanut Allergy Intermediate 05/25/17 Yes Physical Exam Physical Exam Constitutional: Well developed, well nourished, no acute distress, non-toxic appearance. [] HENT: Normocephalic, atraumatic, bilateral external ears normal, oropharynx moist, no oral exudates, nose normal. [] Eyes: PERRLA, EOMI, conjunctiva normal, no discharge. [] Neck: Normal range of motion, no tenderness, supple, no stridor. [] Cardiovascular:Heart rate regular rhythm, no murmur [] Lungs & Thorax: Bilateral breath sounds clear to auscultation [] Abdomen: Bowel sounds normal, soft, diffuse tenderness throughout the abdomen, no masses, no pulsatile masses. [] Skin: Warm, dry, no erythema, no rash. [] Back: No tenderness, no CVA tenderness. [] Extremities: No tenderness, no cyanosis, no clubbing, ROM intact, no edema. [] Neurologic: Alert and oriented X 3, normal motor function, normal sensory function, no focal deficits noted. [] Psychologic: Patient is crying out loud Current Patient Data Vital Signs Vital Signs Date Time Temp Pulse Resp B/P (MAP) Pulse Ox O2 Delivery O2 Flow Rate FiO2 09/25/18 10:07 20 100 Room Air 09/25/18 09:43 97.9 102 149/98 (115) 97.9 Lab Values Laboratory Tests Test 09/25/18 09:55 White Blood Count 6.7 x10^3/uL (4.0-11.0) Red Blood Count 5.20 x10^6/uL (3.50-5.40) Hemoglobin 15.1 g/dL (12.0-15.5) Hematocrit 44.5 % (36.0-47.0) Mean Corpuscular Volume 86 fL (79-100) Mean Corpuscular Hemoglobin 29 pg (25-35) Mean Corpuscular Hemoglobin Concent 34 g/dL (31-37) Red Cell Distribution Width 12.4 % (11.5-14.5) Platelet Count 277 x10^3/uL (140-400) Neutrophils (%) (Auto) 54 % (31-73) Lymphocytes (%) (Auto) 31 % (24-48) Monocytes (%) (Auto) 13 % (0-9) H Eosinophils (%) (Auto) 2 % (0-3) Basophils (%) (Auto) 0 % (0-3) Neutrophils # (Auto) 3.6 x10^3uL (1.8-7.7) Lymphocytes # (Auto) 2.1 x10^3/uL (1.0-4.8) Monocytes # (Auto) 0.8 x10^3/uL (0.0-1.1) Eosinophils # (Auto) 0.1 x10^3/uL (0.0-0.7) Basophils # (Auto) 0.0 x10^3/uL (0.0-0.2) Sodium Level 135 mmol/L (136-145) L Potassium Level 3.4 mmol/L (3.5-5.1) L Chloride Level 97 mmol/L (98-107) L Carbon Dioxide Level 21 mmol/L (21-32) Anion Gap 17 (6-14) H Blood Urea Nitrogen 8 mg/dL (7-20) Creatinine 1.0 mg/dL (0.6-1.0) Estimated GFR (Cockcroft-Gault) 81.1 BUN/Creatinine Ratio 8 (6-20) Glucose Level 106 mg/dL (70-99) H Calcium Level 9.5 mg/dL (8.5-10.1) Total Bilirubin 0.7 mg/dL (0.2-1.0) Aspartate Amino Transferase (AST) 18 U/L (15-37) Alanine Aminotransferase (ALT) 28 U/L (14-59) Alkaline Phosphatase 49 U/L (46-116) Total Protein 8.2 g/dL (6.4-8.2) Albumin 3.8 g/dL (3.4-5.0) Albumin/Globulin Ratio 0.9 (1.0-1.7) L Lipase 160 U/L (73-393) Ethyl Alcohol Level < 10 mg/dL (0-10) Laboratory Tests 09/25/18 09:55 Laboratory Tests 09/25/18 09:55 EKG EKG [] Radiology/Procedures Radiology/Procedures [] Course & Med Decision Making Course & Med Decision Making Pertinent Labs and Imaging studies reviewed. (See chart for details) This is a 28-year-old female patient who presents to the ED today with worsening pain. Patient was seen in the ED 3 days ago, diagnosed with colitis, presents today with worsening pain, crying out loud on arrival via EMS. Patient' s labs are negative for any acute findings, CT of the abdomen and pelvic shows colitis has cleared out. Patient state complaining of pain. Will be admitted. Spoke with Dr. Bernard who accepted patient for admission. Routine GI consult placed Dragon Disclaimer Dragon Disclaimer This electronic medical record was generated, in whole or in part, using a voice recognition dictation system. Departure Departure Impression: Primary Impression: Intractable abdominal pain Disposition: ADMITTED INPATIENT Condition: STABLE Referrals: UNKNOWN PCP NAME (PCP) SUN LI APRN Sep 25, 2018 10:07
[2018-09-25 10:12] LABS: BASO % 0 % (0-3); EOS # 0.1 x10^3/uL (0.0-0.7); EOS % 2 % (0-3); HEMATOCRIT 44.5 % (36.0-47.0); HEMOGLOBIN 15.1 g/dL (12.0-15.5); LYMPH # 2.1 x10^3/uL (1.0-4.8); LYMPH % 31 % (24-48); MEAN CORPUSCULAR HEMOGLOBIN 29 pg (25-35); MEAN CORPUSCULAR HGB CONC 34 g/dL (31-37); MEAN CORPUSCULAR VOLUME 86 fL (79-100); MONO # 0.8 x10^3/uL (0.0-1.1); MONO % 13 % (0-9); NEUT # 3.6 x10^3uL (1.8-7.7); NEUT % 54 % (31-73); PLATELET COUNT 277 x10^3/uL (140-400); RED CELL DISTRIBUTION WIDTH 12.4 % (11.5-14.5); WHITE BLOOD COUNT 6.7 x10^3/uL (4.0-11.0)
[2018-09-25 10:25] LABS: CALCIUM 9.5 mg/dL (8.5-10.1); GFR 81.1; POTASSIUM 3.4 mmol/L (3.5-5.1)
[2018-09-25 10:28] LABS: ALBUMIN 3.8 g/dL (3.4-5.0); ALBUMIN/GLOBULIN RATIO 0.9 (1.0-1.7); TOTAL BILIRUBIN 0.7 mg/dL (0.2-1.0); TOTAL PROTEIN 8.2 g/dL (6.4-8.2)
--- NOTE | 2018-09-25 11:32 | RAD ---
CT study of the abdomen and pelvis without contrast Clinical indications: Worsening abdominal pain. Colitis a few days ago. COMPARISON: July 04, 2018. September 22, 2018. TECHNIQUE: Noncontrast helical CT scanning of the abdomen and pelvis was performed. Without contrast, the sensitivity to detect organ pathology and GI tract pathology is decreased. PQRS compliance Statement One or more of the following individualized dose reduction techniques were utilized for this study: 1. Automated exposure control 2. Adjustment of the mA and/or kV according to patient size 3. Use of iterative reconstruction technique FINDINGS: The liver and spleen and pancreas are unremarkable on this noncontrast study. Gallbladder is surgically absent. No extrahepatic biliary ductal dilatation is seen. No focal aneurysmal dilatation of the abdominal aorta is seen. No enlarged abdominal or pelvic lymphadenopathy is evident. No adrenal mass is evident. No urinary tract stone or hydronephrosis or hydroureter is seen. Urinary bladder is not abnormally distended. No uterine mass is evident. No dominant ovarian cyst or mass is seen. Fecal retention within the colon is mild. Colonic diverticulosis is seen without diverticulitis. The previously seen thickening of the descending colon has resolved. No new colonic wall thickening is evident. No pericolonic inflammatory change is seen. The appendix is normal. The terminal ileum is unremarkable. No obstructive bowel pattern is seen. There is a branching lung nodule within the posterior left lower lobe. This is unchanged. Dilated bronchus and the sternum previous CT study dated August 26, 2017. Therefore, this may represent a mucous plug within a dilated bronchus. No lytic process is seen. IMPRESSION: No acute abnormality of the abdomen or pelvis is evident. Mucous plug within a dilated bronchus of the posterior left lower lobe is unchanged from September 22, 2018 but new since July 04, 2018. Electronically signed by: Jeffery Rausch MD (09/25/2018 11:29 AM) [id number]
--- NOTE | 2018-09-25 11:49 | PDOC1 ---
History and Physical Date of Admission Date of Admission DATE: 09/25/18 TIME: 11:46 Identification/Chief Complaint Chief Complaint Abdominal Pain Source Source: Chart review, Patient History of Present Illness History of Present Illness 28 yo F with chronic abdominal pain, recurrent admissions and multiple abdominal surgeries who presents to the ED today with moderate lower abdominal pain that has been going on for almost a week. Patient was seen in the ED 3 days ago and was diagnosed with mild colitis, was sent home with Cipro and Flagyl. Patient went to see her doctor today, she had worsening pain with nausea and was sent to the ED via EMS. Patient presented to the ED crying out loud. After pain medication dosing she is drowsy, states her pain is a 0/10. On her CT abdomen an incidental finding of left lower lobe bronchus dilation with likely mucous plugging. Potassium was low as well. Past Medical History Cardiovascular: No pertinent hx Pulmonary: No pertinent hx GI: No pertinent hx Heme/Onc: No pertinent hx Hepatobiliary: No pertinent hx Psych: No pertinent hx Rheumatologic: No pertinent hx Infectious disease: No pertinent hx Renal/: No pertinent hx Endocrine: No pertinent hx Past Surgical History Past Surgical History: Cholecystectomy, Other Family History Family History: No Significant Social History ALCOHOL: none Drugs: None Current Medications Current Medications Current Medications Ondansetron HCl (Zofran) 4 mg 1X ONCE IV Last administered on 09/25/18at 10:06 ; Start 09/25/18 at 10:00; Stop 09/25/18 at 10:01; Status DC Famotidine (Pepcid Vial) 20 mg 1X ONCE IVP Last administered on 09/25/18at 10: 05; Start 09/25/18 at 10:00; Stop 09/25/18 at 10:01; Status DC Sodium Chloride 1,000 ml @ 1,000 mls/hr 1X ONCE IV Last administered on at 10:05; Start 09/25/18 at 10:00; Stop 09/25/18 at 10:59; Status DC Haloperidol Lactate (Haldol Inj) 5 mg 1X ONCE IVP Last administered on at 10:06; Start 09/25/18 at 10:00; Stop 09/25/18 at 10:01; Status DC Fentanyl Citrate (Fentanyl 2ml Vial) 50 mcg 1X ONCE IV Last administered on at 10:07; Start 09/25/18 at 10:00; Stop 09/25/18 at 10:01; Status DC Active Scripts Active [place] 5-325 Tablet (Acetaminophen/Hydrocodone Bitart) 1 Each Tablet 1-2 Tab PO Q4-6HRS Compazine (Prochlorperazine Maleate) 10 Mg Tablet 10 Mg PO TID PRN Zofran (Ondansetron Hcl) 4 Mg Tablet 1 Tab PO Q6HRS Flagyl (Metronidazole) 500 Mg Tablet 500 Mg PO TID Cipro (Ciprofloxacin Hcl) 500 Mg Tablet 1 Tab PO BID [place] 5-325 Tablet (Acetaminophen/Hydrocodone Bitart) 1 Each Tablet 1 Tab PO PRN Q6HRS PRN Ondansetron Odt (Ondansetron) 4 Mg Tab.rapdis 1 Tab PO PRN Q6-8HRS Hydrocodone-Apap 5-325 (Hydrocodone Bit/Acetaminophen) 1 Each Tablet 1 Tab PO PRN Q4HRS PRN Allergies Allergies: Coded Allergies: Iodinated Contrast- Oral and IV Dye (Verified Allergy, Intermediate, Shortness of breath, 05/22/17) oxycodone (Verified Allergy, Intermediate, 05/25/17) peanut (Verified Allergy, Intermediate, 05/25/17) ROS General: YES: Appetite; No: Chills, Night Sweats, Fatigue, Malaise, Other PSYCHOLOGICAL ROS: No: Anxiety, Behavioral Disorder, Concentration difficultie , Decreased libido, Depression, Disorientation, Hallucinations, Hostility, Irritablity, Memory difficulties, Mood Swings, Obsessive thoughts, Physical abuse, Sexual abuse, Sleep disturbances, Suicidal ideation, Other Eyes: No Blurry vision, No Decreased vision, No Double vision, No Dry eyes, No Excessive tearing, No Eye Pain, No Itchy Eyes, No Loss of vision, No Photophobia , No Scotomata, No Uses contacts, No Uses glasses, No Other HEENT: No: Heacaches, Visual Changes, Hearing change, Nasal congestion, Nasal discharge, Oral lesions, Sinus pain, Sore Throat, Epistaxis, Sneezing, Snoring, Tinnitus, Vertigo, Vocal changes, Other ALLERGY AND IMMUNOLOGY: No: Hives, Insect Bite Sensitivity, Itchy/Watery Eyes, Nasal Congestion, Post Nasal Drip, Seasonal Allergies, Other Hematological and Lymphatic: No: Bleeding Problems, Blood Clots, Blood Transfusions, Brusing, Night Sweats, Pallor, Swollen Lymph Nodes, Other ENDOCRINE: No: Breast Changes, Galactorrhea, Hair Pattern Changes, Hot Flashes , Malaise/lethargy, Mood Swings, Palpitations, Polydipsia/polyuria, Skin Changes , Temperature Intolerance, Unexpected Weight Changes, Other Breast: No New/Changing Breast Lumps, No Nipple changes, No Nipple discharge, No Other Respiratory: YES: Cough; No: Hemoptysis, Orthopnea, Pleuritic Pain, Shortness of breath, SOB with excertion, Sputum Changes, Stridor, Tachypnea, Wheezing, Other Cardiovascular: No Chest Pain, No Palpitations, No Orthopnea, No Paroxysmal Noc. Dyspnea, No Edema, No Lt Headedness, No Other Gastrointestinal: Yes Nausea, Yes Vomiting, Yes Abdominal Pain; No Diarrhea, No Constipation, No Melena, No Hematochezia, No Other Genitourinary: No Dysuria, No Frequency, No Incontinence, No Hematuria, No Retention, No Discharge, No Urgency, No Pain, No Flank Pain, No Other, No , No , No , No , No , No , No Musculoskeletal: No Gait Disturbance, No Joint Pain, No Joint Stiffness, No Joint Swelling, No Muscle Pain, No Muscular Weakness, No Pain In:, No Swelling In:, No Other Neurological: No Behavorial Changes, No Bowel/Bladder ControlChng, No Confusion , No Dizziness, No Gait Disturbance, No Headaches, No Impaired Coord/balance, No Memory Loss, No Numbness/Tingling, No Seizures, No Speech Problems, No Tremors, No Visual Changes, No Weakness, No Other Skin: No Dry Skin, No Eczema, No Hair Changes, No Lumps, No Mole Changes, No Mottling, No Nail Changes, No Pruritus, No Rash, No Skin Lesion Changes, No Other, No Acne Physical Exam General: Alert, Oriented X3, Cooperative, No acute distress HEENT: Atraumatic, PERRLA, EOMI, Mucous membr. moist/pink Lungs: Clear to auscultation, Normal air movement Heart: S1S2, RRR, no gallops, no murmurs Abdomen: Normal bowel sounds, Soft, No hepatosplenomegaly, No masses, Other ( Bilateral lower quadrant pain) Rectal Exam: not examined, mass Extremities: No clubbing, No cyanosis, No edema, Normal pulses, No tenderness/ swelling Skin: No rashes, No breakdown, No significant lesion Neuro: Normal gait, Normal speech, Strength at 5/5 X4 ext, Normal tone, Sensation intact, Cranial nerves 3-12 NL, Reflexes 2+ Psych/Mental Status: Mental status NL, Mood NL Vitals Vitals Vital Signs Date Time Temp Pulse Resp B/P (MAP) Pulse Ox O2 Delivery O2 Flow Rate FiO2 09/25/18 10:07 20 100 Room Air 09/25/18 09:43 97.9 102 149/98 (115) 97.9 Labs Labs Laboratory Tests Test 09/25/18 09:55 White Blood Count 6.7 x10^3/uL (4.0-11.0) Red Blood Count 5.20 x10^6/uL (3.50-5.40) Hemoglobin 15.1 g/dL (12.0-15.5) Hematocrit 44.5 % (36.0-47.0) Mean Corpuscular Volume 86 fL (79-100) Mean Corpuscular Hemoglobin 29 pg (25-35) Mean Corpuscular Hemoglobin Concent 34 g/dL (31-37) Red Cell Distribution Width 12.4 % (11.5-14.5) Platelet Count 277 x10^3/uL (140-400) Neutrophils (%) (Auto) 54 % (31-73) Lymphocytes (%) (Auto) 31 % (24-48) Monocytes (%) (Auto) 13 % (0-9) Eosinophils (%) (Auto) 2 % (0-3) Basophils (%) (Auto) 0 % (0-3) Neutrophils # (Auto) 3.6 x10^3uL (1.8-7.7) Lymphocytes # (Auto) 2.1 x10^3/uL (1.0-4.8) Monocytes # (Auto) 0.8 x10^3/uL (0.0-1.1) Eosinophils # (Auto) 0.1 x10^3/uL (0.0-0.7) Basophils # (Auto) 0.0 x10^3/uL (0.0-0.2) Sodium Level 135 mmol/L (136-145) Potassium Level 3.4 mmol/L (3.5-5.1) Chloride Level 97 mmol/L (98-107) Carbon Dioxide Level 21 mmol/L (21-32) Anion Gap 17 (6-14) Blood Urea Nitrogen 8 mg/dL (7-20) Creatinine 1.0 mg/dL (0.6-1.0) Estimated GFR (Cockcroft-Gault) 81.1 BUN/Creatinine Ratio 8 (6-20) Glucose Level 106 mg/dL (70-99) Calcium Level 9.5 mg/dL (8.5-10.1) Total Bilirubin 0.7 mg/dL (0.2-1.0) Aspartate Amino Transf (AST/SGOT) 18 U/L (15-37) Alanine Aminotransferase (ALT/SGPT) 28 U/L (14-59) Alkaline Phosphatase 49 U/L (46-116) Total Protein 8.2 g/dL (6.4-8.2) Albumin 3.8 g/dL (3.4-5.0) Albumin/Globulin Ratio 0.9 (1.0-1.7) Lipase 160 U/L (73-393) Ethyl Alcohol Level < 10 mg/dL (0-10) Laboratory Tests Test 09/25/18 09:55 White Blood Count 6.7 x10^3/uL (4.0-11.0) Red Blood Count 5.20 x10^6/uL (3.50-5.40) Hemoglobin 15.1 g/dL (12.0-15.5) Hematocrit 44.5 % (36.0-47.0) Mean Corpuscular Volume 86 fL (79-100) Mean Corpuscular Hemoglobin 29 pg (25-35) Mean Corpuscular Hemoglobin Concent 34 g/dL (31-37) Red Cell Distribution Width 12.4 % (11.5-14.5) Platelet Count 277 x10^3/uL (140-400) Neutrophils (%) (Auto) 54 % (31-73) Lymphocytes (%) (Auto) 31 % (24-48) Monocytes (%) (Auto) 13 % (0-9) Eosinophils (%) (Auto) 2 % (0-3) Basophils (%) (Auto) 0 % (0-3) Neutrophils # (Auto) 3.6 x10^3uL (1.8-7.7) Lymphocytes # (Auto) 2.1 x10^3/uL (1.0-4.8) Monocytes # (Auto) 0.8 x10^3/uL (0.0-1.1) Eosinophils # (Auto) 0.1 x10^3/uL (0.0-0.7) Basophils # (Auto) 0.0 x10^3/uL (0.0-0.2) Sodium Level 135 mmol/L (136-145) Potassium Level 3.4 mmol/L (3.5-5.1) Chloride Level 97 mmol/L (98-107) Carbon Dioxide Level 21 mmol/L (21-32) Anion Gap 17 (6-14) Blood Urea Nitrogen 8 mg/dL (7-20) Creatinine 1.0 mg/dL (0.6-1.0) Estimated GFR (Cockcroft-Gault) 81.1 BUN/Creatinine Ratio 8 (6-20) Glucose Level 106 mg/dL (70-99) Calcium Level 9.5 mg/dL (8.5-10.1) Total Bilirubin 0.7 mg/dL (0.2-1.0) Aspartate Amino Transf (AST/SGOT) 18 U/L (15-37) Alanine Aminotransferase (ALT/SGPT) 28 U/L (14-59) Alkaline Phosphatase 49 U/L (46-116) Total Protein 8.2 g/dL (6.4-8.2) Albumin 3.8 g/dL (3.4-5.0) Albumin/Globulin Ratio 0.9 (1.0-1.7) Lipase 160 U/L (73-393) Ethyl Alcohol Level < 10 mg/dL (0-10) Images Images CT Abdomen - No acute abnormality of the abdomen or pelvis is evident. Mucous plug within a dilated bronchus of the posterior left lower lobe is unchanged from September 22, 2018 but new since July 04, 2018. VTE Prophylaxis Ordered VTE Prophylaxis Devices: No VTE Pharmacological Prophylaxi: Yes Assessment/Plan Assessment/Plan A/P: Abdominal Pain - colitis on CT is improved, will cont cipro, flagyl IV Left lower lobe mucous plugging - still present, will consult pulm for this Hypokalemia - will replace, check mag level Chronic abdominal pain - many admissions and multiple abdominal surgeries. Recommended outpatient pain management. Try toradol and tramadol. Morphine if necessary FEN - NPO PPX - SCDs FULL CODE Inpatient for intractable abdominal pain at least 2 midnights. NEERU HOWARD MD Sep 25, 2018 11:49
[2018-09-25] MEDS ORDERED: ONDANSETRON PF 4 MG/2 ML VIAL. IV PRN ×2 (12:00→14:30)
[2018-09-25 12:30] VITALS: BP 89/49
[2018-09-25] MEDS ORDERED: traMADol 50 MG TABLET PO PRN (14:30)
[2018-09-25] MEDS ORDERED: LIDO:MAALOX 1:1 20 ML SINGLE DOSE. PO PRN (14:30)
[2018-09-25] MEDS ORDERED: POLYETHYLENE GLYCOL 3350 17 GM PACKET. PO PRN (14:30)
[2018-09-25] MEDS ORDERED: KETOROLAC 30 MG/ML VIAL. IV PRN (14:30)
[2018-09-25] MEDS: fentaNYL PF VIAL 100 MCG/2 ML VIAL IV PRN ×3 (14:45→22:42)
[2018-09-25 14:52] VITALS: BP 99/54
--- NOTE | 2018-09-25 14:54 | PDOC2 ---
GI CONSULT Reason For Consult: Abd pain HPI: HPI: 28 y/o female who we have seen in the past. Ill w/ vomiting, abd pain, and constipation x 1 week. Denies precipitating events. Was in the ER at [facility] on , CT showed possible colitis vs non-distention, was discharged w/ antibiotics , anti-emetics, and [place] - all ineffective apparently. Followed-up in our office today, sent to ER via EMS - apparently in too much pain to fill out paperwork, also vomited there. Labs and CT unremarkable here - note Na 135, K 3.4. Got Haldol. We saw her for similar symptoms in 05/2017. At that time, SBS suggested mild left colonic wall thickening and noted reflux. Cortisol was low x1 but normal on recheck x 2. ROMIE was positive. Has had 6 CTs (A/P) here since 2016. Apparently has also been seen at , [facility], and in [place], [place] for same symptoms. Flares can occur monthly, generally associated w/ menstruation (though not currently). 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 Denies reflux/heartburn, dysphagia, hematemesis, hematochezia, and melena. Last ate some chicken broth on Monday and last vomited this morning in our office. Is thirsty and would like something to drink. Assumes weight loss. Last stooled 1 week ago she thinks. Last time she told me h/o constipation ( with "no stool for 2 weeks") - this time denies chronic constipation. Pain is mostly lower, constant, worse after vomiting and worse w/ walking. S/p cholecystectomy for stones, surgery for intussusception (in 2016), also right salpingectomy for ruptured ectopic . No previous EGD or colonoscopy - previously told me had "a scope through her nose" and suggestion that she "swallow a camera pill" (not performed because she couldn't swallow it). No NSAIDs. PMH: PMH: +ROMIE, diverticulosis, cholecystectomy, right salpingectomy, surgery for intussusception (in her 20s) FH: Family History: Cancer (lung - MGM) Social History: Smoke: <1 pack per day ALCOHOL: occassional Drugs: Marijuana (on the weekends) ROS: GEN: Denies fevers, chills, sweats HEENT: Denies blurred vision, sore throat CV: Denies chest pain RESP: Denies shortness of air, cough GI: Per HPI : Denies hematuria, dysuria ENDO: ?weight loss NEURO: Denies confusion, dizziness MSK: Denies weakness, joint pain/swelling SKIN: Denies jaundice, pruritus Vitals: Vitals: Vital Signs Date Time Temp Pulse Resp B/P (MAP) Pulse Ox O2 Delivery O2 Flow Rate FiO2 09/25/18 12:30 98.1 79 18 89/49 (62) 97 Room Air 98.1 Labs: Labs: Laboratory Tests Test 09/25/18 09:55 White Blood Count 6.7 x10^3/uL (4.0-11.0) Red Blood Count 5.20 x10^6/uL (3.50-5.40) Hemoglobin 15.1 g/dL (12.0-15.5) Hematocrit 44.5 % (36.0-47.0) Mean Corpuscular Volume 86 fL (79-100) Mean Corpuscular Hemoglobin 29 pg (25-35) Mean Corpuscular Hemoglobin Concent 34 g/dL (31-37) Red Cell Distribution Width 12.4 % (11.5-14.5) Platelet Count 277 x10^3/uL (140-400) Neutrophils (%) (Auto) 54 % (31-73) Lymphocytes (%) (Auto) 31 % (24-48) Monocytes (%) (Auto) 13 % (0-9) Eosinophils (%) (Auto) 2 % (0-3) Basophils (%) (Auto) 0 % (0-3) Neutrophils # (Auto) 3.6 x10^3uL (1.8-7.7) Lymphocytes # (Auto) 2.1 x10^3/uL (1.0-4.8) Monocytes # (Auto) 0.8 x10^3/uL (0.0-1.1) Eosinophils # (Auto) 0.1 x10^3/uL (0.0-0.7) Basophils # (Auto) 0.0 x10^3/uL (0.0-0.2) Sodium Level 135 mmol/L (136-145) Potassium Level 3.4 mmol/L (3.5-5.1) Chloride Level 97 mmol/L (98-107) Carbon Dioxide Level 21 mmol/L (21-32) Anion Gap 17 (6-14) Blood Urea Nitrogen 8 mg/dL (7-20) Creatinine 1.0 mg/dL (0.6-1.0) Estimated GFR (Cockcroft-Gault) 81.1 BUN/Creatinine Ratio 8 (6-20) Glucose Level 106 mg/dL (70-99) Calcium Level 9.5 mg/dL (8.5-10.1) Total Bilirubin 0.7 mg/dL (0.2-1.0) Aspartate Amino Transf (AST/SGOT) 18 U/L (15-37) Alanine Aminotransferase (ALT/SGPT) 28 U/L (14-59) Alkaline Phosphatase 49 U/L (46-116) Total Protein 8.2 g/dL (6.4-8.2) Albumin 3.8 g/dL (3.4-5.0) Albumin/Globulin Ratio 0.9 (1.0-1.7) Lipase 160 U/L (73-393) Ethyl Alcohol Level < 10 mg/dL (0-10) Allergies: Coded Allergies: Iodinated Contrast- Oral and IV Dye (Verified Allergy, Intermediate, Shortness of breath, 05/22/17) oxycodone (Verified Allergy, Intermediate, 05/25/17) peanut (Verified Allergy, Intermediate, 05/25/17) Medications: Current Medications Medications (Trade) Dose Ordered Sig/Geoff Route PRN Reason Start Time Stop Time Status Last Admin Dose Admin Ondansetron HCl (Zofran) 4 mg 1X ONCE IV 09/25/18 10:00 09/25/18 10:01 DC 09/25/18 10:06 Famotidine (Pepcid Vial) 20 mg 1X ONCE IVP 09/25/18 10:00 09/25/18 10:01 DC 09/25/18 10:05 Sodium Chloride 1,000 ml @ 1,000 mls/hr 1X ONCE IV 09/25/18 10:00 09/25/18 10:59 DC 09/25/18 10:05 Haloperidol Lactate (Haldol Inj) 5 mg 1X ONCE IVP 09/25/18 10:00 09/25/18 10:01 DC 09/25/18 10:06 Fentanyl Citrate (Fentanyl 2ml Vial) 50 mcg 1X ONCE IV 09/25/18 10:00 09/25/18 10:01 DC 09/25/18 10:07 Imaging: Imaging: CT A/P 09/25/18 FINDINGS: The liver and spleen and pancreas are unremarkable on this noncontrast study. Gallbladder is surgically absent. No extrahepatic biliary ductal dilatation is seen. No focal aneurysmal dilatation of the abdominal aorta is seen. No enlarged abdominal or pelvic lymphadenopathy is evident. No adrenal mass is evident. No urinary tract stone or hydronephrosis or hydroureter is seen. Urinary bladder is not abnormally distended. No uterine mass is evident. No dominant ovarian cyst or mass is seen. Fecal retention within the colon is mild. Colonic diverticulosis is seen without diverticulitis. The previously seen thickening of the descending colon has resolved. No new colonic wall thickening is evident. No pericolonic inflammatory change is seen. The appendix is normal. The terminal ileum is unremarkable. No obstructive bowel pattern is seen. There is a branching lung nodule within the posterior left lower lobe. This is unchanged. Dilated bronchus and the sternum previous CT study dated August 26, 2017. Therefore, this may represent a mucous plug within a dilated bronchus. No lytic process is seen. IMPRESSION: No acute abnormality of the abdomen or pelvis is evident. Mucous plug within a dilated bronchus of the posterior left lower lobe is unchanged from September 22, 2018 but new since July 04, 2018. CT A/P 12/23/15 IMPRESSION 1. There is no CT evidence of acute appendicitis. 2. There is a small quantity of nonspecific dependent free fluid in pelvis although possibly physiologic. 3. There is likely small inferior left renal calculus, no hydronephrosis.03/22 CT A/P 12/03/[address] of the abdomen and pelvis with contrast. CT A/P 05/22/17 Impression: 1. No acute abdominal findings. 2. No obstructing or nonobstructing renal calculus. 3. Prior cholecystectomy. Abd US 05/23/17 Impression: 1. No acute abdominal findings. 2. Common bile duct measurement of 6 mm can be within normal limits post cholecystectomy. SBS 05/24/17 IMPRESSION: 1. Findings suggesting mild left colonic wall thickening. Correlate for colitis. 2. No small bowel abnormalities identified. 3. Gastroesophageal reflux was incidentally noted. CT A/P 07/04/18 Impression: No evidence of urolithiasis or obstructive uropathy. CT A/P 09/22/18 IMPRESSION: 1. Mild thickened appearance of the wall of the descending colon could be due to nondistention or mild colitis. 2. Normal-appearing appendix. PE: GEN: NAD HEENT: Atraumatic, PERRL LUNGS: CTAB HEART: RRR ABD: NABS, soft, non-distended, periumbilical/epigastric/LLQ discomfort - though seems uncomfortable throughout EXTREMITY: No edema SKIN: No rashes, no jaundice NEURO/PSYCH: A & O �3, quiet A/P: A/P: Recurrent abd pain, n/v, constipation ?GERD - suggested on past SBS +ROMIE CRC screen - average risk S/p cholecystectomy, h/o intussusception and ectopic /right salpingectomy +cannabinoids (on 09/22/18) ?BV - micro specimen suggestive of this on 09/22/18 -- ?cannabinoid syndrome Okay to try clears, ADAT. Add PPI - will order PO, can change to IV if indicated. Add Miralax, etc. 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 CASSIE HUNTER Sep 25, 2018 14:54
[2018-09-25] MEDS: IV RINGERS,LACTATED 1000ML 1,000 ML IV SCH ×2 (14:56→19:45)
[2018-09-25] MEDS ORDERED: POTASSIUM CHLORIDE 20 MEQ TABLET.ER. PO ONE (15:00)
[2018-09-25] MEDS ORDERED: BISACODYL 5 MG TABLET.DR. PO ONE (15:30)
[2018-09-25] MEDS: POLYETHYLENE GLYCOL 3350 17 GM PACKET. PO SCH (16:26)
[2018-09-25] MEDS: PANTOPRAZOLE 40 MG TABLET.DR. PO SCH (16:28)
[2018-09-25] MEDS: CIPROFLOXACIN 200MG PREMIX 100 ML IV SCH (16:28)
[2018-09-25 18:01] LABS: AMPHETAMINE/METHAMPHETAMINE NEG (NEG); BARBITURATES NEG (NEG); BENZODIAZEPINES NEG (NEG); CANNABINOIDS POS (NEG); COCAINE NEG (NEG); METHADONE NEG (NEG); OPIATES POS (NEG); PHENCYCLIDINE NEG (NEG)
[2018-09-25 19:00] VITALS: BP 106/65
[2018-09-25 22:40] VITALS: BP 102/68
[2018-09-26] MEDS: IV RINGERS,LACTATED 1000ML 1,000 ML IV SCH ×2 (01:02→11:00)
[2018-09-26] MEDS: fentaNYL PF VIAL 100 MCG/2 ML VIAL IV PRN (02:53)
[2018-09-26 03:00] VITALS: BP 96/62
[2018-09-26 04:05] LABS: BASO % 1 % (0-3); EOS # 0.2 x10^3/uL (0.0-0.7); EOS % 4 % (0-3); HEMOGLOBIN 13.3 g/dL (12.0-15.5); LYMPH # 2.2 x10^3/uL (1.0-4.8); LYMPH % 43 % (24-48); MEAN CORPUSCULAR HEMOGLOBIN 29 pg (25-35); MEAN CORPUSCULAR HGB CONC 33 g/dL (31-37); MEAN CORPUSCULAR VOLUME 88 fL (79-100); MONO # 0.7 x10^3/uL (0.0-1.1); MONO % 14 % (0-9); NEUT % 39 % (31-73); PLATELET COUNT 234 x10^3/uL (140-400); RED BLOOD COUNT 4.55 x10^6/uL (3.50-5.40); RED CELL DISTRIBUTION WIDTH 12.7 % (11.5-14.5)
[2018-09-26 04:12] LABS: ALBUMIN 3.1 g/dL (3.4-5.0); ALBUMIN/GLOBULIN RATIO 0.8 (1.0-1.7); CALCIUM 8.8 mg/dL (8.5-10.1); CREATININE 0.8 mg/dL (0.6-1.0); GFR 104.9; POTASSIUM 3.7 mmol/L (3.5-5.1); TOTAL BILIRUBIN 0.5 mg/dL (0.2-1.0); TOTAL PROTEIN 6.8 g/dL (6.4-8.2)
[2018-09-26 07:00] VITALS: BP 95/59
--- NOTE | 2018-09-26 07:46 | PDOC ---
PROGRESS NOTES Chief Complaint Chief Complaint +ROMIE Diverticulosis S/p Cholecystectomy S/P right salpingectomy S/p surgery for intussusception (in her 20s) Bacterial vaginosis Cannabis hyperemesis History of Present Illness History of Present Illness 28 yo F with chronic abdominal pain, recurrent admissions and multiple abdominal surgeries who presents to the ED 09/25/18 with moderate lower abdominal pain that has been going on for almost a week. Patient was seen in the ED 3 days ago and was diagnosed with mild colitis, was sent home with Ankitro and Flagyl. Vomited at GI appt on 09/25/18 and was sent to ED for further care. On her CT abdomen an incidental finding of left lower lobe bronchus dilation with likely mucous plugging. Potassium was low as well. Notably she was positive for cannabinoids and states she is not on her menstrual period but this is a known association for her. Seen for similar symptoms in 05/2017. At that time, SBS suggested mild left colonic wall thickening and noted reflux. Cortisol was low x1 but normal on recheck x 2. ROMIE was positive. Denies reflux/heartburn, dysphagia, hematemesis, hematochezia, and melena. Last ate some chicken broth on Monday and last vomited this morning in our office. Is thirsty and would like something to drink. Assumes weight loss. Last stooled 1 week ago she thinks. Feels a little better today after IV antibiotics and tramadol and toradol for pain, which improved her sx. She was seen by pulm and started on incentive spirometry for her mucous plugging, advised smoking cessation. Seen by GI, improved sx, but complicated history, ok for d/c Plan D/C today with pain medications, finish out cipro and flagyl scripts Vitals Vitals Vital Signs Date Time Temp Pulse Resp B/P (MAP) Pulse Ox O2 Delivery O2 Flow Rate FiO2 09/26/18 07:00 97.9 60 17 95/59 (71) 100 Room Air 97.9 Physical Exam General: Alert, Oriented X3, Cooperative, No acute distress Heart: Regular rate, Normal S1, Normal S2 Lungs: Clear Abdomen: Normal bowel sounds, Soft, No hepatosplenomegaly, No masses, Other ( Bilateral lower quadrant pain) Extremities: No clubbing, No cyanosis, No edema, Normal pulses, No tenderness/ swelling Skin: No rashes, No breakdown, No significant lesion Labs LABS Laboratory Tests Test 09/25/18 09:55 09/25/18 17:30 09/26/18 03:35 White Blood Count 6.7 x10^3/uL (4.0-11.0) 5.0 x10^3/uL (4.0-11.0) Red Blood Count 5.20 x10^6/uL (3.50-5.40) 4.55 x10^6/uL (3.50-5.40) Hemoglobin 15.1 g/dL (12.0-15.5) 13.3 g/dL (12.0-15.5) Hematocrit 44.5 % (36.0-47.0) 40.0 % (36.0-47.0) Mean Corpuscular Volume 86 fL (79-100) 88 fL (79-100) Mean Corpuscular Hemoglobin 29 pg (25-35) 29 pg (25-35) Mean Corpuscular Hemoglobin Concent 34 g/dL (31-37) 33 g/dL (31-37) Red Cell Distribution Width 12.4 % (11.5-14.5) 12.7 % (11.5-14.5) Platelet Count 277 x10^3/uL (140-400) 234 x10^3/uL (140-400) Neutrophils (%) (Auto) 54 % (31-73) 39 % (31-73) Lymphocytes (%) (Auto) 31 % (24-48) 43 % (24-48) Monocytes (%) (Auto) 13 % (0-9) 14 % (0-9) Eosinophils (%) (Auto) 2 % (0-3) 4 % (0-3) Basophils (%) (Auto) 0 % (0-3) 1 % (0-3) Neutrophils # (Auto) 3.6 x10^3uL (1.8-7.7) 2.0 x10^3uL (1.8-7.7) Lymphocytes # (Auto) 2.1 x10^3/uL (1.0-4.8) 2.2 x10^3/uL (1.0-4.8) Monocytes # (Auto) 0.8 x10^3/uL (0.0-1.1) 0.7 x10^3/uL (0.0-1.1) Eosinophils # (Auto) 0.1 x10^3/uL (0.0-0.7) 0.2 x10^3/uL (0.0-0.7) Basophils # (Auto) 0.0 x10^3/uL (0.0-0.2) 0.0 x10^3/uL (0.0-0.2) Sodium Level 135 mmol/L (136-145) 138 mmol/L (136-145) Potassium Level 3.4 mmol/L (3.5-5.1) 3.7 mmol/L (3.5-5.1) Chloride Level 97 mmol/L (98-107) 103 mmol/L (98-107) Carbon Dioxide Level 21 mmol/L (21-32) 28 mmol/L (21-32) Anion Gap 17 (6-14) 7 (6-14) Blood Urea Nitrogen 8 mg/dL (7-20) 8 mg/dL (7-20) Creatinine 1.0 mg/dL (0.6-1.0) 0.8 mg/dL (0.6-1.0) Estimated GFR (Cockcroft-Gault) 81.1 104.9 BUN/Creatinine Ratio 8 (6-20) 10 (6-20) Glucose Level 106 mg/dL (70-99) 97 mg/dL (70-99) Calcium Level 9.5 mg/dL (8.5-10.1) 8.8 mg/dL (8.5-10.1) Magnesium Level 2.1 mg/dL (1.8-2.4) Total Bilirubin 0.7 mg/dL (0.2-1.0) 0.5 mg/dL (0.2-1.0) Aspartate Amino Transf (AST/SGOT) 18 U/L (15-37) 14 U/L (15-37) Alanine Aminotransferase (ALT/SGPT) 28 U/L (14-59) 23 U/L (14-59) Alkaline Phosphatase 49 U/L (46-116) 42 U/L (46-116) Total Protein 8.2 g/dL (6.4-8.2) 6.8 g/dL (6.4-8.2) Albumin 3.8 g/dL (3.4-5.0) 3.1 g/dL (3.4-5.0) Albumin/Globulin Ratio 0.9 (1.0-1.7) 0.8 (1.0-1.7) Lipase 160 U/L (73-393) Ethyl Alcohol Level < 10 mg/dL (0-10) Urine Opiates Screen Pos (NEG) Urine Methadone Screen Neg (NEG) Urine Barbiturates Neg (NEG) Urine Phencyclidine Screen Neg (NEG) Urine Amphetamine/Methamphetamine Neg (NEG) Urine Benzodiazepines Screen Neg (NEG) Urine Cocaine Screen Neg (NEG) Urine Cannabinoids Screen Pos (NEG) Urine Ethyl Alcohol Neg (NEG) Comment Review of Relevant I have reviewed the following items teresa (where applicable) has been applied. Labs Laboratory Tests Test 09/25/18 09:55 09/25/18 17:30 09/26/18 03:35 White Blood Count 6.7 x10^3/uL (4.0-11.0) 5.0 x10^3/uL (4.0-11.0) Red Blood Count 5.20 x10^6/uL (3.50-5.40) 4.55 x10^6/uL (3.50-5.40) Hemoglobin 15.1 g/dL (12.0-15.5) 13.3 g/dL (12.0-15.5) Hematocrit 44.5 % (36.0-47.0) 40.0 % (36.0-47.0) Mean Corpuscular Volume 86 fL (79-100) 88 fL (79-100) Mean Corpuscular Hemoglobin 29 pg (25-35) 29 pg (25-35) Mean Corpuscular Hemoglobin Concent 34 g/dL (31-37) 33 g/dL (31-37) Red Cell Distribution Width 12.4 % (11.5-14.5) 12.7 % (11.5-14.5) Platelet Count 277 x10^3/uL (140-400) 234 x10^3/uL (140-400) Neutrophils (%) (Auto) 54 % (31-73) 39 % (31-73) Lymphocytes (%) (Auto) 31 % (24-48) 43 % (24-48) Monocytes (%) (Auto) 13 % (0-9) 14 % (0-9) Eosinophils (%) (Auto) 2 % (0-3) 4 % (0-3) Basophils (%) (Auto) 0 % (0-3) 1 % (0-3) Neutrophils # (Auto) 3.6 x10^3uL (1.8-7.7) 2.0 x10^3uL (1.8-7.7) Lymphocytes # (Auto) 2.1 x10^3/uL (1.0-4.8) 2.2 x10^3/uL (1.0-4.8) Monocytes # (Auto) 0.8 x10^3/uL (0.0-1.1) 0.7 x10^3/uL (0.0-1.1) Eosinophils # (Auto) 0.1 x10^3/uL (0.0-0.7) 0.2 x10^3/uL (0.0-0.7) Basophils # (Auto) 0.0 x10^3/uL (0.0-0.2) 0.0 x10^3/uL (0.0-0.2) Sodium Level 135 mmol/L (136-145) 138 mmol/L (136-145) Potassium Level 3.4 mmol/L (3.5-5.1) 3.7 mmol/L (3.5-5.1) Chloride Level 97 mmol/L (98-107) 103 mmol/L (98-107) Carbon Dioxide Level 21 mmol/L (21-32) 28 mmol/L (21-32) Anion Gap 17 (6-14) 7 (6-14) Blood Urea Nitrogen 8 mg/dL (7-20) 8 mg/dL (7-20) Creatinine 1.0 mg/dL (0.6-1.0) 0.8 mg/dL (0.6-1.0) Estimated GFR (Cockcroft-Gault) 81.1 104.9 BUN/Creatinine Ratio 8 (6-20) 10 (6-20) Glucose Level 106 mg/dL (70-99) 97 mg/dL (70-99) Calcium Level 9.5 mg/dL (8.5-10.1) 8.8 mg/dL (8.5-10.1) Magnesium Level 2.1 mg/dL (1.8-2.4) Total Bilirubin 0.7 mg/dL (0.2-1.0) 0.5 mg/dL (0.2-1.0) Aspartate Amino Transf (AST/SGOT) 18 U/L (15-37) 14 U/L (15-37) Alanine Aminotransferase (ALT/SGPT) 28 U/L (14-59) 23 U/L (14-59) Alkaline Phosphatase 49 U/L (46-116) 42 U/L (46-116) Total Protein 8.2 g/dL (6.4-8.2) 6.8 g/dL (6.4-8.2) Albumin 3.8 g/dL (3.4-5.0) 3.1 g/dL (3.4-5.0) Albumin/Globulin Ratio 0.9 (1.0-1.7) 0.8 (1.0-1.7) Lipase 160 U/L (73-393) Ethyl Alcohol Level < 10 mg/dL (0-10) Urine Opiates Screen Pos (NEG) Urine Methadone Screen Neg (NEG) Urine Barbiturates Neg (NEG) Urine Phencyclidine Screen Neg (NEG) Urine Amphetamine/Methamphetamine Neg (NEG) Urine Benzodiazepines Screen Neg (NEG) Urine Cocaine Screen Neg (NEG) Urine Cannabinoids Screen Pos (NEG) Urine Ethyl Alcohol Neg (NEG) Laboratory Tests Test 09/25/18 09:55 09/25/18 17:30 09/26/18 03:35 White Blood Count 6.7 x10^3/uL (4.0-11.0) 5.0 x10^3/uL (4.0-11.0) Red Blood Count 5.20 x10^6/uL (3.50-5.40) 4.55 x10^6/uL (3.50-5.40) Hemoglobin 15.1 g/dL (12.0-15.5) 13.3 g/dL (12.0-15.5) Hematocrit 44.5 % (36.0-47.0) 40.0 % (36.0-47.0) Mean Corpuscular Volume 86 fL (79-100) 88 fL (79-100) Mean Corpuscular Hemoglobin 29 pg (25-35) 29 pg (25-35) Mean Corpuscular Hemoglobin Concent 34 g/dL (31-37) 33 g/dL (31-37) Red Cell Distribution Width 12.4 % (11.5-14.5) 12.7 % (11.5-14.5) Platelet Count 277 x10^3/uL (140-400) 234 x10^3/uL (140-400) Neutrophils (%) (Auto) 54 % (31-73) 39 % (31-73) Lymphocytes (%) (Auto) 31 % (24-48) 43 % (24-48) Monocytes (%) (Auto) 13 % (0-9) 14 % (0-9) Eosinophils (%) (Auto) 2 % (0-3) 4 % (0-3) Basophils (%) (Auto) 0 % (0-3) 1 % (0-3) Neutrophils # (Auto) 3.6 x10^3uL (1.8-7.7) 2.0 x10^3uL (1.8-7.7) Lymphocytes # (Auto) 2.1 x10^3/uL (1.0-4.8) 2.2 x10^3/uL (1.0-4.8) Monocytes # (Auto) 0.8 x10^3/uL (0.0-1.1) 0.7 x10^3/uL (0.0-1.1) Eosinophils # (Auto) 0.1 x10^3/uL (0.0-0.7) 0.2 x10^3/uL (0.0-0.7) Basophils # (Auto) 0.0 x10^3/uL (0.0-0.2) 0.0 x10^3/uL (0.0-0.2) Sodium Level 135 mmol/L (136-145) 138 mmol/L (136-145) Potassium Level 3.4 mmol/L (3.5-5.1) 3.7 mmol/L (3.5-5.1) Chloride Level 97 mmol/L (98-107) 103 mmol/L (98-107) Carbon Dioxide Level 21 mmol/L (21-32) 28 mmol/L (21-32) Anion Gap 17 (6-14) 7 (6-14) Blood Urea Nitrogen 8 mg/dL (7-20) 8 mg/dL (7-20) Creatinine 1.0 mg/dL (0.6-1.0) 0.8 mg/dL (0.6-1.0) Estimated GFR (Cockcroft-Gault) 81.1 104.9 BUN/Creatinine Ratio 8 (6-20) 10 (6-20) Glucose Level 106 mg/dL (70-99) 97 mg/dL (70-99) Calcium Level 9.5 mg/dL (8.5-10.1) 8.8 mg/dL (8.5-10.1) Magnesium Level 2.1 mg/dL (1.8-2.4) Total Bilirubin 0.7 mg/dL (0.2-1.0) 0.5 mg/dL (0.2-1.0) Aspartate Amino Transf (AST/SGOT) 18 U/L (15-37) 14 U/L (15-37) Alanine Aminotransferase (ALT/SGPT) 28 U/L (14-59) 23 U/L (14-59) Alkaline Phosphatase 49 U/L (46-116) 42 U/L (46-116) Total Protein 8.2 g/dL (6.4-8.2) 6.8 g/dL (6.4-8.2) Albumin 3.8 g/dL (3.4-5.0) 3.1 g/dL (3.4-5.0) Albumin/Globulin Ratio 0.9 (1.0-1.7) 0.8 (1.0-1.7) Lipase 160 U/L (73-393) Ethyl Alcohol Level < 10 mg/dL (0-10) Urine Opiates Screen Pos (NEG) Urine Methadone Screen Neg (NEG) Urine Barbiturates Neg (NEG) Urine Phencyclidine Screen Neg (NEG) Urine Amphetamine/Methamphetamine Neg (NEG) Urine Benzodiazepines Screen Neg (NEG) Urine Cocaine Screen Neg (NEG) Urine Cannabinoids Screen Pos (NEG) Urine Ethyl Alcohol Neg (NEG) Medications Current Medications Ondansetron HCl (Zofran) 4 mg 1X ONCE IV Last administered on 09/25/18at 10:06 ; Start 09/25/18 at 10:00; Stop 09/25/18 at 10:01; Status DC Famotidine (Pepcid Vial) 20 mg 1X ONCE IVP Last administered on 09/25/18at 10: 05; Start 09/25/18 at 10:00; Stop 09/25/18 at 10:01; Status DC Sodium Chloride 1,000 ml @ 1,000 mls/hr 1X ONCE IV Last administered on at 10:05; Start 09/25/18 at 10:00; Stop 09/25/18 at 10:59; Status DC Haloperidol Lactate (Haldol Inj) 5 mg 1X ONCE IVP Last administered on at 10:06; Start 09/25/18 at 10:00; Stop 09/25/18 at 10:01; Status DC Fentanyl Citrate (Fentanyl 2ml Vial) 50 mcg 1X ONCE IV Last administered on at 10:07; Start 09/25/18 at 10:00; Stop 09/25/18 at 10:01; Status DC Ondansetron HCl (Zofran) 4 mg PRN Q8HRS PRN IV NAUSEA/VOMITING; Start 09/25/18 at 12:00; Stop 09/26/18 at 11:59 Fentanyl Citrate (Fentanyl 2ml Vial) 50 mcg PRN Q1HR PRN IV PAIN Last administered on 09/26/18at 02:53; Start 09/25/18 at 12:00; Stop 09/26/18 at 11:59 Sodium Chloride 1,000 ml @ 75 mls/hr 1X ONCE IV Last administered on at 14:22; Start 09/25/18 at 12:00; Stop 09/26/18 at 01:19; Status DC Ringer's Solution 1,000 ml @ 150 mls/hr Q6H40M IV Last administered on at 01:02; Start 09/25/18 at 15:00 Ondansetron HCl (Zofran) 4 mg PRN Q6HRS PRN IV NAUSEA/VOMITING; Start 09/25/18 at 14:30 Tramadol HCl (Ultram) 50 mg PRN Q6HRS PRN PO PAIN; Start 09/25/18 at 14:30 Ketorolac Tromethamine (Toradol 30mg Vial) 30 mg PRN Q6HRS PRN IV PAIN; Start 09/25/18 at 14:30; Stop 09/30/18 at 14:29 Potassium Chloride (Klor-Con) 40 meq 1X ONCE PO Last administered on at 14:55; Start 09/25/18 at 15:00; Stop 09/25/18 at 15:01; Status DC Metronidazole 100 ml @ 100 mls/hr Q8HRS IV Last administered on 09/26/18 06: 02; Start 09/25/18 at 16:00 Ciprofloxacin/ Dextrose 100 ml @ 100 mls/hr Q12HR IV Last administered on 09/25 16:28; Start 09/25/18 at 16:00 Pantoprazole Sodium (Protonix) 40 mg DAILYAC PO Last administered on 09/25/18 16:28; Start 09/25/18 at 16:00 Polyethylene Glycol (miraLAX PACKET) 17 gm DAILY PO Last administered on 16:26; Start 09/25/18 at 16:00 Polyethylene Glycol (miraLAX PACKET) 17 gm PRN DAILY PRN PO CONSTIPATION; Start 09/25/18 at 14:30 Multi-Ingredient Mouthwash/Gargle (Gi Cocktail) 20 ml PRN QID PRN PO upper abd pain; Start 09/25/18 at 14:30 Bisacodyl (Dulcolax Tab) 10 mg 1X ONCE PO Last administered on 09/25/18 16:26 ; Start 09/25/18 at 15:30; Stop 09/25/18 at 15:31; Status DC Active Scripts Active [place] 5-325 Tablet (Acetaminophen/Hydrocodone Bitart) 1 Each Tablet 1-2 Tab PO Q4-6HRS Compazine (Prochlorperazine Maleate) 10 Mg Tablet 10 Mg PO TID PRN Zofran (Ondansetron Hcl) 4 Mg Tablet 1 Tab PO Q6HRS Flagyl (Metronidazole) 500 Mg Tablet 500 Mg PO TID Cipro (Ciprofloxacin Hcl) 500 Mg Tablet 1 Tab PO BID [place] 5-325 Tablet (Acetaminophen/Hydrocodone Bitart) 1 Each Tablet 1 Tab PO PRN Q6HRS PRN Ondansetron Odt (Ondansetron) 4 Mg Tab.rapdis 1 Tab PO PRN Q6-8HRS Hydrocodone-Apap 5-325 (Hydrocodone Bit/Acetaminophen) 1 Each Tablet 1 Tab PO PRN Q4HRS PRN Vitals/I & O Vital Sign - Last 24 Hours 09/25/18 09/25/18 09/25/18 09/25/18 09:43 10:07 12:30 14:45 Temp 97.9 98.1 97.9 98.1 Pulse 102 79 Resp 28 20 18 B/P (MAP) 149/98 (115) 89/49 (62) Pulse Ox 100 100 97 97 O2 Delivery Room Air Room Air Room Air 09/25/18 09/25/18 09/25/18 09/25/18 14:52 15:15 19:00 22:40 Temp 98.0 98.4 98.4 98.0 98.4 98.4 Pulse 80 80 67 Resp 18 18 18 B/P (MAP) 99/54 (69) 106/65 (79) 102/68 (79) Pulse Ox 98 98 100 100 O2 Delivery Room Air Room Air Room Air 09/26/18 09/26/18 03:00 07:00 Temp 98.1 97.9 98.1 97.9 Pulse 73 60 Resp 18 17 B/P (MAP) 96/62 (73) 95/59 (71) Pulse Ox 100 100 O2 Delivery Room Air Room Air Intake and Output 09/25/18 09/25/18 09/26/18 15:00 23:00 07:00 Intake Total 200 ml 440 ml 700 ml Balance 200 ml 440 ml 700 ml NEERU HOWARD MD Sep 26, 2018 07:46
[2018-09-26] MEDS: CIPROFLOXACIN 200MG PREMIX 100 ML IV SCH (08:26)
[2018-09-26] MEDS: PANTOPRAZOLE 40 MG TABLET.DR. PO SCH (08:27)
[2018-09-26] MEDS: POLYETHYLENE GLYCOL 3350 17 GM PACKET. PO SCH (08:27)
[2018-09-26 10:32] VITALS: BP 101/59
--- NOTE | 2018-09-26 11:05 | PDOC ---
Subjective: Subjective: Abd pain resolved, tolerating clears and wants more to eat. Stooled several times - pain might have been related. Objective: Vital Signs: Vital Signs Date Time Temp Pulse Resp B/P (MAP) Pulse Ox O2 Delivery O2 Flow Rate FiO2 09/26/18 10:32 97.8 82 18 101/59 (73) 99 Room Air 97.8 Labs: Laboratory Tests Test 09/25/18 17:30 09/26/18 03:35 Urine Opiates Screen Pos Urine Methadone Screen Neg Urine Barbiturates Neg Urine Phencyclidine Screen Neg Urine Amphetamine/Methamphetamine Neg Urine Benzodiazepines Screen Neg Urine Cocaine Screen Neg Urine Cannabinoids Screen Pos Urine Ethyl Alcohol Neg White Blood Count 5.0 x10^3/uL Red Blood Count 4.55 x10^6/uL Hemoglobin 13.3 g/dL Hematocrit 40.0 % Mean Corpuscular Volume 88 fL Mean Corpuscular Hemoglobin 29 pg Mean Corpuscular Hemoglobin Concent 33 g/dL Red Cell Distribution Width 12.7 % Platelet Count 234 x10^3/uL Neutrophils (%) (Auto) 39 % Lymphocytes (%) (Auto) 43 % Monocytes (%) (Auto) 14 % Eosinophils (%) (Auto) 4 % Basophils (%) (Auto) 1 % Neutrophils # (Auto) 2.0 x10^3uL Lymphocytes # (Auto) 2.2 x10^3/uL Monocytes # (Auto) 0.7 x10^3/uL Eosinophils # (Auto) 0.2 x10^3/uL Basophils # (Auto) 0.0 x10^3/uL Sodium Level 138 mmol/L Potassium Level 3.7 mmol/L Chloride Level 103 mmol/L Carbon Dioxide Level 28 mmol/L Anion Gap 7 Blood Urea Nitrogen 8 mg/dL Creatinine 0.8 mg/dL Estimated GFR (Cockcroft-Gault) 104.9 BUN/Creatinine Ratio 10 Glucose Level 97 mg/dL Calcium Level 8.8 mg/dL Total Bilirubin 0.5 mg/dL Aspartate Amino Transf (AST/SGOT) 14 U/L Alanine Aminotransferase (ALT/SGPT) 23 U/L Alkaline Phosphatase 42 U/L Total Protein 6.8 g/dL Albumin 3.1 g/dL Albumin/Globulin Ratio 0.8 PE: GEN: NAD, talking on the phone, eating jello LUNGS: CTAB HEART: RRR ABD: NABS, S/ND/NT NEURO/PSYCH: A & O �3 A/P: Recurrent abd pain, n/v, constipation - resolved -- Improved. Probably doesn't need antibiotics. PERRY MAS per primary. Consider continuing PPO and Miralax. Stop marijuana. Follow-up w/ our office as outpt for chronic/recurrent issues. CASSIE HUNTER Sep 26, 2018 11:04
--- NOTE | 2018-09-26 12:03 | CONS ---
DATE OF CONSULTATION: PULMONARY CONSULTATION ATTENDING PHYSICIAN: Diego Bernard MD. REASON FOR CONSULTATION: Mucus plug. HISTORY OF PRESENT ILLNESS: The patient is a 28-year-old female who has been a smoker for 6-7 years and does marijuana. She has history of multiple abdominal surgeries and presented to Emergency Department with some moderate lower abdominal pain. A CT abdomen and pelvis was performed, which was reviewed by me and the radiologist reported as a mucous plug involved the dilated bronchus in the left lower lobe. I personally do not think it was any much of clinical significance. There were no infiltrates seen. She has a mild cough. No fever, no chills, no shortness of breath. No known history of asthma. PAST MEDICAL HISTORY: Essentially unremarkable. PAST SURGICAL HISTORY: Cholecystectomy and multiple other abdominal surgeries. SOCIAL HISTORY: Smoker 6-7 years of tobacco and also does marijuana. ALLERGIES: IV DYE, OXYCODONE AND PEANUT. MEDICATIONS: Reviewed as listed in the MRAD. PHYSICAL EXAMINATION: VITAL SIGNS: Reviewed. Pulse ox 99% on room air. NECK: Supple. LUNGS: Clear. CARDIOVASCULAR: Regular rate and rhythm. ABDOMEN: Soft. EXTREMITIES: With no pitting edema. LABORATORY DATA: Reviewed. White cell count 5.0, hemoglobin 13.3 and platelets are 234. BUN is 8 and creatinine 1.0. IMPRESSION: Abnormal CT abdomen with lower section of the chest reported by radiologist as mucus plug. This is not of much clinical significance. She had a tiny dilated bronchus in the posterior left lobe with probable very minimal mucus. This is not of much clinical significance either. No symptoms suggesting infection. From a pulmonary standpoint, she does not need any antibiotic. She does need incentive spirometry. RECOMMENDATIONS: 1. Stable to go home. 2. Incentive spirometry. 3. Tobacco cessation and marijuana cessation counseling provided and I discussed with RN. SULTANA MARTIN MD DR: KADEN/hayden JOB#: [id number] / [id number]
[2018-09-26] MEDS ORDERED: TRAM50TA PO (13:32)
[2018-09-26] MEDS ORDERED: LACT1CAP19 PO (13:32)
[2018-09-26] MEDS ORDERED: Pantoprazole PO (13:32)
--- NOTE | 2018-09-26 13:39 | PDOC3 ---
Discharge Summary Visit Information Date of Admission: Sep 25, 2018 Date of Discharge: Sep 26, 2018 Admitting Diagnosis: COLITIS Final Diagnosis COLITIS Brief Hospital Course Allergies Allergies Coded Allergies Type Severity Reaction Last Updated Verified Iodinated Contrast- Oral and IV Dye Allergy Intermediate Shortness of breath 05/22/17 Yes oxycodone Allergy Intermediate 05/25/17 Yes peanut Allergy Intermediate 05/25/17 Yes Vital Signs Vital Signs Date Time Temp Pulse Resp B/P (MAP) Pulse Ox O2 Delivery O2 Flow Rate FiO2 09/26/18 10:32 97.8 82 18 101/59 (73) 99 Room Air 97.8 Lab Results Laboratory Tests Test 09/25/18 09:55 09/25/18 17:30 09/26/18 03:35 White Blood Count 6.7 x10^3/uL (4.0-11.0) 5.0 x10^3/uL (4.0-11.0) Red Blood Count 5.20 x10^6/uL (3.50-5.40) 4.55 x10^6/uL (3.50-5.40) Hemoglobin 15.1 g/dL (12.0-15.5) 13.3 g/dL (12.0-15.5) Hematocrit 44.5 % (36.0-47.0) 40.0 % (36.0-47.0) Mean Corpuscular Volume 86 fL (79-100) 88 fL (79-100) Mean Corpuscular Hemoglobin 29 pg (25-35) 29 pg (25-35) Mean Corpuscular Hemoglobin Concent 34 g/dL (31-37) 33 g/dL (31-37) Red Cell Distribution Width 12.4 % (11.5-14.5) 12.7 % (11.5-14.5) Platelet Count 277 x10^3/uL (140-400) 234 x10^3/uL (140-400) Neutrophils (%) (Auto) 54 % (31-73) 39 % (31-73) Lymphocytes (%) (Auto) 31 % (24-48) 43 % (24-48) Monocytes (%) (Auto) 13 % (0-9) 14 % (0-9) Eosinophils (%) (Auto) 2 % (0-3) 4 % (0-3) Basophils (%) (Auto) 0 % (0-3) 1 % (0-3) Neutrophils # (Auto) 3.6 x10^3uL (1.8-7.7) 2.0 x10^3uL (1.8-7.7) Lymphocytes # (Auto) 2.1 x10^3/uL (1.0-4.8) 2.2 x10^3/uL (1.0-4.8) Monocytes # (Auto) 0.8 x10^3/uL (0.0-1.1) 0.7 x10^3/uL (0.0-1.1) Eosinophils # (Auto) 0.1 x10^3/uL (0.0-0.7) 0.2 x10^3/uL (0.0-0.7) Basophils # (Auto) 0.0 x10^3/uL (0.0-0.2) 0.0 x10^3/uL (0.0-0.2) Sodium Level 135 mmol/L (136-145) 138 mmol/L (136-145) Potassium Level 3.4 mmol/L (3.5-5.1) 3.7 mmol/L (3.5-5.1) Chloride Level 97 mmol/L (98-107) 103 mmol/L (98-107) Carbon Dioxide Level 21 mmol/L (21-32) 28 mmol/L (21-32) Anion Gap 17 (6-14) 7 (6-14) Blood Urea Nitrogen 8 mg/dL (7-20) 8 mg/dL (7-20) Creatinine 1.0 mg/dL (0.6-1.0) 0.8 mg/dL (0.6-1.0) Estimated GFR (Cockcroft-Gault) 81.1 104.9 BUN/Creatinine Ratio 8 (6-20) 10 (6-20) Glucose Level 106 mg/dL (70-99) 97 mg/dL (70-99) Calcium Level 9.5 mg/dL (8.5-10.1) 8.8 mg/dL (8.5-10.1) Magnesium Level 2.1 mg/dL (1.8-2.4) Total Bilirubin 0.7 mg/dL (0.2-1.0) 0.5 mg/dL (0.2-1.0) Aspartate Amino Transf (AST/SGOT) 18 U/L (15-37) 14 U/L (15-37) Alanine Aminotransferase (ALT/SGPT) 28 U/L (14-59) 23 U/L (14-59) Alkaline Phosphatase 49 U/L (46-116) 42 U/L (46-116) Total Protein 8.2 g/dL (6.4-8.2) 6.8 g/dL (6.4-8.2) Albumin 3.8 g/dL (3.4-5.0) 3.1 g/dL (3.4-5.0) Albumin/Globulin Ratio 0.9 (1.0-1.7) 0.8 (1.0-1.7) Lipase 160 U/L (73-393) Ethyl Alcohol Level < 10 mg/dL (0-10) Urine Opiates Screen Pos (NEG) Urine Methadone Screen Neg (NEG) Urine Barbiturates Neg (NEG) Urine Phencyclidine Screen Neg (NEG) Urine Amphetamine/Methamphetamine Neg (NEG) Urine Benzodiazepines Screen Neg (NEG) Urine Cocaine Screen Neg (NEG) Urine Cannabinoids Screen Pos (NEG) Urine Ethyl Alcohol Neg (NEG) Laboratory Tests Test 09/25/18 17:30 09/26/18 03:35 Urine Opiates Screen Pos (NEG) Urine Methadone Screen Neg (NEG) Urine Barbiturates Neg (NEG) Urine Phencyclidine Screen Neg (NEG) Urine Amphetamine/Methamphetamine Neg (NEG) Urine Benzodiazepines Screen Neg (NEG) Urine Cocaine Screen Neg (NEG) Urine Cannabinoids Screen Pos (NEG) Urine Ethyl Alcohol Neg (NEG) White Blood Count 5.0 x10^3/uL (4.0-11.0) Red Blood Count 4.55 x10^6/uL (3.50-5.40) Hemoglobin 13.3 g/dL (12.0-15.5) Hematocrit 40.0 % (36.0-47.0) Mean Corpuscular Volume 88 fL (79-100) Mean Corpuscular Hemoglobin 29 pg (25-35) Mean Corpuscular Hemoglobin Concent 33 g/dL (31-37) Red Cell Distribution Width 12.7 % (11.5-14.5) Platelet Count 234 x10^3/uL (140-400) Neutrophils (%) (Auto) 39 % (31-73) Lymphocytes (%) (Auto) 43 % (24-48) Monocytes (%) (Auto) 14 % (0-9) Eosinophils (%) (Auto) 4 % (0-3) Basophils (%) (Auto) 1 % (0-3) Neutrophils # (Auto) 2.0 x10^3uL (1.8-7.7) Lymphocytes # (Auto) 2.2 x10^3/uL (1.0-4.8) Monocytes # (Auto) 0.7 x10^3/uL (0.0-1.1) Eosinophils # (Auto) 0.2 x10^3/uL (0.0-0.7) Basophils # (Auto) 0.0 x10^3/uL (0.0-0.2) Sodium Level 138 mmol/L (136-145) Potassium Level 3.7 mmol/L (3.5-5.1) Chloride Level 103 mmol/L (98-107) Carbon Dioxide Level 28 mmol/L (21-32) Anion Gap 7 (6-14) Blood Urea Nitrogen 8 mg/dL (7-20) Creatinine 0.8 mg/dL (0.6-1.0) Estimated GFR (Cockcroft-Gault) 104.9 BUN/Creatinine Ratio 10 (6-20) Glucose Level 97 mg/dL (70-99) Calcium Level 8.8 mg/dL (8.5-10.1) Total Bilirubin 0.5 mg/dL (0.2-1.0) Aspartate Amino Transf (AST/SGOT) 14 U/L (15-37) Alanine Aminotransferase (ALT/SGPT) 23 U/L (14-59) Alkaline Phosphatase 42 U/L (46-116) Total Protein 6.8 g/dL (6.4-8.2) Albumin 3.1 g/dL (3.4-5.0) Albumin/Globulin Ratio 0.8 (1.0-1.7) Brief Hospital Course 28 yo F with chronic abdominal pain, recurrent admissions and multiple abdominal surgeries who presents to the ED 09/25/18 with moderate lower abdominal pain that has been going on for almost a week. Patient was seen in the ED 3 days ago and was diagnosed with mild colitis, was sent home with Cipro and Flagyl. Vomited at GI appt on 09/25/18 and was sent to ED for further care. On her CT abdomen an incidental finding of left lower lobe bronchus dilation with likely mucous plugging. Potassium was low as well. Notably she was positive for cannabinoids and states she is not on her menstrual period but this is a known association for her. Seen for similar symptoms in 05/2017. At that time, SBS suggested mild left colonic wall thickening and noted reflux. Cortisol was low x1 but normal on recheck x 2. ROMIE was positive. Denies reflux/heartburn, dysphagia, hematemesis, hematochezia, and melena. Last ate some chicken broth on Monday and last vomited this morning in our office. Is thirsty and would like something to drink. Assumes weight loss. Last stooled 1 week ago she thinks. Feels a little better today after IV antibiotics and tramadol and toradol for pain, which improved her sx. She was seen by pulm and started on incentive spirometry for her mucous plugging, advised smoking cessation. Seen by GI, improved sx, but complicated history, ok for d/c Plan D/C today with pain medications, finish out cipro and flagyl scripts, pain meds - oxycodone for 6 days. Greater than 30 minutes spent on d/c including follow up coordination with GI and pulmonary consultation. Discharge Information Condition at Discharge: Improved Follow Up: Weeks (2) Disposition/Orders: D/C to Home Scheduled Ciprofloxacin Hcl (Cipro) 500 Mg Tablet, 1 TAB PO BID, #20 Prescribed by: Meredith Melgar APRN on 09/22/18 1457 Lactobacillus Rhamnosus Gg (Culturelle) 1 Each Cap.sprink, 1 CAP PO BID for Colitis for 30 Days, #60 Ref 1 Prescribed by: NEERU HOWARD MD on 09/26/18 1332 Metronidazole (Flagyl) 500 Mg Tablet, 500 MG PO TID, #30 Prescribed by: Meredith Melgar APRN on 09/22/18 1457 Ondansetron (Ondansetron Odt) 4 Mg Tab.rapdis, 1 TAB PO PRN Q6-8HRS for VOMITING , #16 Prescribed by: EULALIO TOMLINSON D.O. on 07/05/18 0012 Ondansetron Hcl (Zofran) 4 Mg Tablet, 1 TAB PO Q6HRS, #20 Prescribed by: Meredith Melgar APRN on 09/22/18 1457 [Pantoprazole] 40 MG TABLET.DR, 40 MG PO DAILYAC for GERD for 30 Days, #30 Prescribed by: NEERU HOWARD MD on 09/26/18 1332 Scheduled PRN Prochlorperazine Maleate (Compazine) 10 Mg Tablet, 10 MG PO TID PRN for NAUSEA, #30 Prescribed by: Meredith Melgar APRN on 09/22/18 1457 Tramadol Hcl (Tramadol Hcl) 50 Mg Tablet, 50 MG PO PRN Q6HRS PRN for PAIN for 6 Days, #18 Ref 0 Prescribed by: NEERU HOWARD MD on 09/26/18 1332 Discontinued Medications Hydrocodone Bit/Acetaminophen (Hydrocodone-Apap 5-325 ) 1 Each Tablet, 1 TAB PO PRN Q4HRS PRN for PAIN, #10 Prescribed by: JEWEL HERNANDEZ MD on 05/26/17 0936 Hydrocodone/Apap 5-325 ([place] 5-325 Tablet) 1 Each Tablet, 1 TAB PO PRN Q6HRS PRN for PAIN, #10 Ref 0 Prescribed by: EULALIO TOMLINSON D.O. on 07/05/18 0012 Hydrocodone/Apap 5-325 ([place] 5-325 Tablet) 1 Each Tablet, 1-2 TAB PO Q4-6HRS, # 20 Prescribed by: Meredith Melgar APRN on 09/22/18 145 NEERU HOWARD MD Sep 26, 2018 13:39
[2018-09-26] MEDS ORDERED: LACTOBACILLUS RHAMNOSUS GG 1 CAPSULE. PO SCH (21:00)
== END 2018-09-26 14:20 | disposition home or self-care (01) | DRG 206 ==
LOC: ER 09:42 → 5 SOUTH 11:31
PROVIDERS: ADMIT Internal Medicine; ATTEND Internal Medicine
DX: T17.890A Other foreign object in other parts of respiratory tract causing asphyxiation, initial encounter (principal); K52.9 Noninfective gastroenteritis and colitis, unspecified; B96.89 Other specified bacterial agents as the cause of diseases classified elsewhere; E87.6 Hypokalemia; F12.90 Cannabis use, unspecified, uncomplicated; F17.210 Nicotine dependence, cigarettes, uncomplicated; G89.29 Other chronic pain; J47.9 Bronchiectasis, uncomplicated; K21.9 Gastro-esophageal reflux disease without esophagitis; K57.90 Diverticulosis of intestine, part unspecified, without perforation or abscess without bleeding; N20.0 Calculus of kidney; N76.0 Acute vaginitis; Z80.1 Family history of malignant neoplasm of trachea, bronchus and lung; Z90.49 Acquired absence of other specified parts of digestive tract; Z88.8 Allergy status to other drugs, medicaments and biological substances; Z91.010 Allergy to peanuts; Z90.721 Acquired absence of ovaries, unilateral; Z71.6 Tobacco abuse counseling; Z71.51 Drug abuse counseling and surveillance of drug abuser
CPT/HCPCS: 36415; 74176; 80053; 80307; 83690; 83735; 85025; 96374; 96375; 99406; G0480; J0744; J1630; J1885; J2405; J3010; J3490; J7030; J7120; 99285-25; G0378

== ENCOUNTER 2019-03-13 11:26 | Emergency (ER) | payer OTHER ==
[~2019-03-13] VITALS: Ht 162.6 cm; Wt 77.1 kg
[~2019-03-13 11:26] MED LIST changes: +LACT1CAP19 PO; +Pantoprazole PO; +TRAM50TA PO
[2019-03-13] MEDS ORDERED: HYDROmorphone 2 MG/ML VIAL IV PRN (13:15)
[2019-03-13] MEDS ORDERED: ONDANSETRON PF 4 MG/2 ML VIAL. IV ONE (13:15)
[2019-03-13] MEDS ORDERED: IV NORMAL SALINE 1000ML BAG 1,000 ML IV ONE (13:15)
[2019-03-13 13:47] LABS: BASO % 0 % (0-3); EOS % 0 % (0-3); HEMATOCRIT 46.9 % (36.0-47.0); HEMOGLOBIN 15.8 g/dL (12.0-15.5); LYMPH # 1.5 x10^3/uL (1.0-4.8); LYMPH % 18 % (24-48); MEAN CORPUSCULAR HEMOGLOBIN 30 pg (25-35); MEAN CORPUSCULAR HGB CONC 34 g/dL (31-37); MEAN CORPUSCULAR VOLUME 88 fL (79-100); MONO # 0.7 x10^3/uL (0.0-1.1); MONO % 9 % (0-9); NEUT % 73 % (31-73); PLATELET COUNT 310 x10^3/uL (140-400); RED BLOOD COUNT 5.33 x10^6/uL (3.50-5.40); RED CELL DISTRIBUTION WIDTH 12.8 % (11.5-14.5); WHITE BLOOD COUNT 8.2 x10^3/uL (4.0-11.0)
--- NOTE | 2019-03-13 13:51 | RAD ---
EXAM: Chest, 2 views. HISTORY: Chest pain. COMPARISON: 10/30/2014 FINDINGS: 2 views of the chest are obtained. There is no infiltrate, pleural effusion or pneumothorax. The heart is normal in size. IMPRESSION: No acute pulmonary finding. Electronically signed by: Lamar Mccoy MD (03/13/2019 1:48 PM) [facility]
[2019-03-13 14:00] LABS: CALCIUM 9.7 mg/dL (8.5-10.1); GFR 81.1; POTASSIUM 3.4 mmol/L (3.5-5.1)
[2019-03-13 14:05] LABS: PREG TEST PT QUAL NEGATIVE (NEG)
[2019-03-13 14:06] LABS: ALBUMIN 4.3 g/dL (3.4-5.0); TOTAL BILIRUBIN 0.6 mg/dL (0.2-1.0); TOTAL PROTEIN 8.6 g/dL (6.4-8.2)
--- NOTE | 2019-03-13 14:19 | EKG ---
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
--- NOTE | 2019-03-13 14:48 | RAD ---
PELVIS W/TV Clinical Indication: Pelvic pain. Comparison: None. TECHNIQUE: Real-time ultrasound imaging of the pelvis using transabdominal and transvaginal window is performed. Findings: Uterus measures 8.9 x 3.6 x 6.6 cm. No focal abnormality. The endometrial stripe is normal measuring 7 mm. The ovaries are symmetric in size and demonstrate normal blood flow. Small follicles are seen in the ovaries. Incidentally visualized urinary bladder is not well distended. No pelvic free fluid. No evidence of adnexal mass. IMPRESSION: Normal pelvic ultrasound. Electronically signed by: Per Hook MD (03/13/2019 2:45 PM) [id number]
[2019-03-13 15:04] VITALS: BP 137/61
--- NOTE | 2019-03-13 15:06 | RAD ---
Examination: CT CHEST ABDOMEN PELVIS WO History: Chest and abdominal pain Comparison/Correlation: 09/25/2018 CT abdomen and pelvis without contrast Findings: Axial images of chest, abdomen, and pelvis were obtained without contrast. Sagittal and coronal reformatted images were provided. Lack of IV contrast may limit detection of mass lesions and inflammatory processes. Bilateral nipple piercings are present. Tracheobronchial tree is unremarkable. No pulmonary nodule, mass, infiltrate, or pneumothorax. Cholecystectomy is evident. Liver, spleen, pancreas, adrenal glands and kidneys are unremarkable. No radiopaque collecting system calculi. Appendix is normal. No extraluminal gas. No bowel obstruction. No inflammatory changes identified to involve the bowel. Mild diverticulosis is suspected. Uterus is unremarkable. Urinary bladder is unremarkable. Right femoral head bone island appears to be present. Impression: No infiltrate. No inflammatory process identified within the abdomen or pelvis. No radiopaque collecting system calculi. Diverticulosis. PQRS Compliance Statement: One or more of the following individualized dose reduction techniques were utilized for this examination: 1. Automated exposure control 2. Adjustment of the mA and/or kV according to patient size 3. Use of iterative reconstruction technique Electronically signed by: John Bess MD (03/13/2019 3:02 PM) [facility]
[2019-03-13 15:16] LABS: BILIRUBIN,URINE NEGATIVE (NEG); CLARITY,URINE CLOUDY; COLOR,URINE AMBER; NITRITE,URINE NEGATIVE (NEG); PROTEIN,URINE 30 mg/dL (NEG-TRACE)
[2019-03-13 15:25] LABS: SQUAMOUS EPITHELIAL CELL,UR MANY /LPF
[2019-03-13 15:27] LABS: BACTERIA,URINE MOD /HPF (0-FEW); RBC,URINE 0 /HPF (0-2); WBC,URINE 0 /HPF (0-4)
[2019-03-13] MEDS ORDERED: HYDR-2761 PO (16:16)
--- NOTE | 2019-03-13 16:16 | PHYS DOC ---
Past Medical History Past Medical History: Other Additional Past Medical Histor: "TWISTED COLON"; colitis Past Surgical History: Cholecystectomy, Other Additional Past Surgical Histo: Ectopic,Twisted colon Alcohol Use: Occasionally Drug Use: Marijuana Adult General Chief Complaint Chief Complaint: MENSTRUAL PAIN/CRAMPS HPI HPI 28 show female presenting the emergency department today with abdominal pain and chest pain. Her chest pain has been going on for about 2 days. It comes and goes. The chest pain is a sharp shooting pain that is nonradiating without alleviating factors. Her abdominal pain is in her lower abdomen she denies vomiting. She is just finishing her last menstrual period today. She has a history of ectopic and intussusception. Past medical history: History of ectopic and intussusception Surgical history: Status post laparotomy Social history: Smokes, denies drinking or IV drug use. Review of systems is negative for cough shortness of breath fevers chills headache. Positive for nausea negative for vomiting. All other review of systems is negative. ED course: 28 show female presenting with chest pain and abdominal pain. EKG obtained and reviewed by myself shows sinus rhythm with a mildly bradycardic rate. ST segments are congruent. Nonspecific T-wave flattening's some related to artifact. Chest x-ray unremarkable. CT chest abdomen pelvis negative. Ultrasound of the pelvis is negative for torsion. Patient is given fluids nausea and pain medication here. On reexamination the patient is feeling better. Repeat abdominal exam is soft and nontender. We will discharge patient home with a few oral pain medications to follow-up with her doctor tomorrow for repeat abdominal exam. Current Medications Current Medications Current Medications Medications (Trade) Dose Ordered Sig/Geoff Start Time Stop Time Status Last Admin Dose Admin Hydromorphone HCl (Dilaudid) 0.5 mg PRN Q30MIN PRN 03/13/19 13:15 03/13/19 13:47 0.5 MG Ondansetron HCl (Zofran) 4 mg 1X ONCE 03/13/19 13:15 03/13/19 13:18 DC 03/13/19 13:47 4 MG Sodium Chloride 1,000 ml @ 1,000 mls/hr 1X ONCE 03/13/19 13:15 03/13/19 14:14 DC 03/13/19 13:47 1,000 MLS/HR Allergies Allergies Allergies Coded Allergies Type Severity Reaction Last Updated Verified Iodinated Contrast- Oral and IV Dye Allergy Intermediate Shortness of breath 05/22/17 Yes oxycodone Allergy Intermediate 05/25/17 Yes peanut Allergy Intermediate 05/25/17 Yes Physical Exam Physical Exam Constitutional: Well developed, well nourished, no acute distress, non-toxic appearance. HENT: Normocephalic, atraumatic, bilateral external ears normal, oropharynx moist, no oral exudates, nose normal. Eyes: PERRLA, EOMI, conjunctiva normal, no discharge. [] Neck: Normal range of motion, no tenderness, supple, no stridor. Cardiovascular:Heart rate regular rhythm, no murmur Lungs & Thorax: Bilateral breath sounds clear to auscultation [] Abdomen: Bowel sounds normal, soft, no tenderness, no masses, no pulsatile masses. Skin: Warm, dry, no erythema, no rash. [] Back: No tenderness, no CVA tenderness. Extremities: No tenderness, no cyanosis, no clubbing, ROM intact, no edema. Neurologic: Alert and oriented X 3, normal motor function, normal sensory function, no focal deficits noted. [] Psychologic: Affect normal, judgement normal, mood normal. [] Current Patient Data Vital Signs Vital Signs Date Time Temp Pulse Resp B/P (MAP) Pulse Ox O2 Delivery O2 Flow Rate FiO2 03/13/19 14:43 60 18 109/70 (83) 98 Room Air 03/13/19 13:23 98.6 98.6 Lab Values Laboratory Tests Test 03/13/19 13:29 03/13/19 14:53 03/13/19 15:09 White Blood Count 8.2 x10^3/uL (4.0-11.0) Red Blood Count 5.33 x10^6/uL (3.50-5.40) Hemoglobin 15.8 g/dL (12.0-15.5) H Hematocrit 46.9 % (36.0-47.0) Mean Corpuscular Volume 88 fL (79-100) Mean Corpuscular Hemoglobin 30 pg (25-35) Mean Corpuscular Hemoglobin Concent 34 g/dL (31-37) Red Cell Distribution Width 12.8 % (11.5-14.5) Platelet Count 310 x10^3/uL (140-400) Neutrophils (%) (Auto) 73 % (31-73) Lymphocytes (%) (Auto) 18 % (24-48) L Monocytes (%) (Auto) 9 % (0-9) Eosinophils (%) (Auto) 0 % (0-3) Basophils (%) (Auto) 0 % (0-3) Neutrophils # (Auto) 6.0 x10^3/uL (1.8-7.7) Lymphocytes # (Auto) 1.5 x10^3/uL (1.0-4.8) Monocytes # (Auto) 0.7 x10^3/uL (0.0-1.1) Eosinophils # (Auto) 0.0 x10^3/uL (0.0-0.7) Basophils # (Auto) 0.0 x10^3/uL (0.0-0.2) Sodium Level 139 mmol/L (136-145) Potassium Level 3.4 mmol/L (3.5-5.1) L Chloride Level 98 mmol/L (98-107) Carbon Dioxide Level 22 mmol/L (21-32) Anion Gap 19 (6-14) H Blood Urea Nitrogen 13 mg/dL (7-20) Creatinine 1.0 mg/dL (0.6-1.0) Estimated GFR (Cockcroft-Gault) 81.1 BUN/Creatinine Ratio 13 (6-20) Glucose Level 110 mg/dL (70-99) H Calcium Level 9.7 mg/dL (8.5-10.1) Total Bilirubin 0.6 mg/dL (0.2-1.0) Aspartate Amino Transferase (AST) 17 U/L (15-37) Alanine Aminotransferase (ALT) 23 U/L (14-59) Alkaline Phosphatase 57 U/L (46-116) Troponin I Quantitative < 0.017 ng/mL (0.000-0.055) Total Protein 8.6 g/dL (6.4-8.2) H Albumin 4.3 g/dL (3.4-5.0) Albumin/Globulin Ratio 1.0 (1.0-1.7) Lipase 97 U/L (73-393) Serum Test, Qualitative Negative (NEG) Urine Collection Type Unknown Urine Color Yuliana Urine Clarity Cloudy Urine pH 6.0 Urine Specific [place] >=1.030 Urine Protein 30 mg/dL (NEG-TRACE) Urine Glucose (UA) Negative mg/dL (NEG) Urine Ketones (Stick) >=80 mg/dL (NEG) Urine Blood Large (NEG) Urine Nitrite Negative (NEG) Urine Bilirubin Negative (NEG) Urine Urobilinogen Dipstick 1.0 mg/dL (0.2 mg/dL) Urine Leukocyte Esterase Negative (NEG) Urine RBC 0 /HPF (0-2) Urine WBC 0 /HPF (0-4) Urine Squamous Epithelial Cells Many /LPF Urine Bacteria Mod /HPF (0-FEW) Urine Mucus Marked /LPF POC Urine HCG, Qualitative Hcg negative (Negative) Laboratory Tests 03/13/19 13:29 Laboratory Tests 03/13/19 13:29 EKG EKG [] Radiology/Procedures Radiology/Procedures [] Course & Med Decision Making Course & Med Decision Making Pertinent Labs and Imaging studies reviewed. (See chart for details) [] Dragon Disclaimer Dragon Disclaimer This electronic medical record was generated, in whole or in part, using a voice recognition dictation system. Departure Departure Impression: Primary Impression: Abdominal pain Additional Impression: Chest pain Disposition: 01 HOME, SELF-CARE Condition: STABLE Referrals: UNKNOWN PCP NAME (PCP) Patient Instructions: Abdominal Pain, Chest Pain (Nonspecific) Additional Instructions: Thank you for allowing us to participate in your care today. Return to the emergency department you have any new or worsening symptoms, or if you are concerned for any reason. Return to emergency department if you have any new or concerning symptoms including but not limited to fever, chills, nausea, vomiting, intractable pain, any new rashes, chest pain, shortness of air, uncontrolled bleeding, difficulty breathing, and/or vision loss. Follow up with your primary care physician within 1-2 days. Call your Primary Doctor tomorrow and inform them of your visit today. If you do not have a primary care provider we are happy to provide you with a list of our primary care providers contact information. This condition should be evaluated by your primary care physician and any recommended consulting services for continued management within 2 days after discharge. If at any time, you are having difficulty getting into your primary care doctor or a specialist, return to the emergency department. Scripts Hydrocodone Bit/Acetaminophen (HYDROCODONE-APAP 5-325 ) 1 Tab Tablet 1 TAB PO PRN Q8HRS PRN for SEVERE PAIN, #8 TAB 0 Refills Prov: SHARIF COLE MD 03/13/19 Problem Qualifiers SHARIF COLE MD Mar 13, 2019 16:16
== END 2019-03-13 16:42 | disposition home or self-care (01) ==
LOC: ER 11:26
DX: R10.30 Lower abdominal pain, unspecified (principal); R07.89 Other chest pain; R10.2 Pelvic and perineal pain; Z90.49 Acquired absence of other specified parts of digestive tract; Z91.041 Radiographic dye allergy status; Z88.5 Allergy status to narcotic agent; Z91.010 Allergy to peanuts
CPT/HCPCS: 36415; 71046; 71250; 74176; 76830; 76856; 80053; 81001; 81025; 83690; 84484; 84703; 85025; 93005; 96374; 96375; 99285; J1170; J2405; J7030

== ENCOUNTER 2020-10-18 18:01 | Emergency (ER) | payer OTHER ==
[~2020-10-18] VITALS: Ht 162.6 cm; Wt 80.0 kg
[2020-10-18 18:57] LABS: BILIRUBIN,URINE NEGATIVE (NEG); CLARITY,URINE CLEAR; COLOR,URINE YELLOW; NITRITE,URINE NEGATIVE (NEG); PROTEIN,URINE NEGATIVE (NEG-TRACE); UROBILINOGEN,URINE 0.2 mg/dL (0.2 mg/dL)
[2020-10-18 19:07] LABS: BACTERIA,URINE FEW /HPF (0-FEW); WBC,URINE OCC /HPF (0-4)
[2020-10-18] MEDS ORDERED: medroxyPROGESTERone IM 150 MG/ML VIAL. IM ONE (19:15)
[2020-10-18] MEDS ORDERED: KETOROLAC 60 MG/2 ML VIAL. IM ONE (19:15)
--- NOTE | 2020-10-18 19:36 | PHYS DOC ---
Past Medical History Past Medical History: No Pertinent History, Other Additional Past Medical Histor: "TWISTED COLON"; colitis Past Surgical History: Cholecystectomy, Other Additional Past Surgical Histo: Ectopic,Twisted colon Smoking Status: Current Every Day Smoker Alcohol Use: Occasionally Drug Use: Marijuana General Adult EDM: Chief Complaint: MENSTRUAL PAIN/CRAMPS HPI: HPI: Patient is a 30 year old female with history of dysmenorrhea presenting today complaining of menstrual cramps, symptoms began three days ago when her cycle began. She states she is usually on Depo shot that helps prevent this menstrual cramping but she missed her Depo shot a month ago. She states she normally gets a Depo shot at emergency room. She states her bleeding is normal, she is not having any excessive bleeding. Review of Systems: Review of Systems: Constitutional: Denies fever or chills. [] GI: Reports abdominal cramping with vaginal bleeding. Nausea, vomiting, bloody stools or diarrhea. [] : Denies dysuria. [] Musculoskeletal: Denies back pain or joint pain. [] Integument: Denies rash. [] Neurologic: Denies headache, focal weakness or sensory changes. [] Psychiatric: Denies depression or anxiety. [] Heart Score: C/O Chest Pain: No Risk Factors: Risk Factors: DM, Current or recent (<one month) smoker, HTN, HLP, family history of CAD, obesity. Risk Scores: Score 0 - 3: 2.5% MACE over next 6 weeks - Discharge Home Score 4 - 6: 20.3% MACE over next 6 weeks - Admit for Clinical Observation Score 7 - 10: 72.7% MACE over next 6 weeks - Early Invasive Strategies Current Medications: Current Medications Medications (Trade) Dose Ordered Sig/Geoff Start Time Stop Time Status Last Admin Dose Admin Ketorolac Tromethamine (Toradol Im) 60 mg 1X ONCE 10/18/20 19:15 10/18/20 19:16 DC Medroxyprogesterone Acetate (Depo-Provera Im) 150 mg 1X ONCE 10/18/20 19:15 10/18/20 19:16 DC Allergies: Allergies: Allergies Coded Allergies Type Severity Reaction Last Updated Verified Iodinated Contrast Media Allergy Intermediate Shortness of breath 05/22/17 Yes oxycodone Allergy Intermediate 05/25/17 Yes peanut Allergy Intermediate 05/25/17 Yes Physical Exam: PE: Constitutional: Well developed, well nourished, no acute distress, non-toxic appearance. [] Abdomen: Bowel sounds normal, soft, no tenderness, no masses, no pulsatile masses. [] Skin: Warm, dry, no erythema, no rash. [] Back: No tenderness, no CVA tenderness. [] Extremities: No tenderness, no cyanosis, no clubbing, ROM intact, no edema. [] Neurologic: Alert and oriented X 3, normal motor function, normal sensory function, no focal deficits noted. [] Psychologic: Flat affect, hysterical, thrashing around the bed Current Patient Data: Labs: Laboratory Tests Test 10/18/20 18:35 10/18/20 18:47 Urine Collection Type Unknown Urine Color Yellow Urine Clarity Clear Urine pH 7.0 (<5.0-8.0) Urine Specific [place] >=1.030 (1.000-1.030) Urine Protein Negative mg/dL (NEG-TRACE) Urine Glucose (UA) Negative mg/dL (NEG) Urine Ketones (Stick) Trace mg/dL (NEG) Urine Blood Moderate (NEG) Urine Nitrite Negative (NEG) Urine Bilirubin Negative (NEG) Urine Urobilinogen Dipstick 0.2 mg/dL (0.2 mg/dL) Urine Leukocyte Esterase Negative (NEG) Urine RBC 11-20 /HPF (0-2) Urine WBC Occ /HPF (0-4) Urine Squamous Epithelial Cells Few /LPF Urine Bacteria Few /HPF (0-FEW) Urine Mucus Mod /LPF POC Urine HCG, Qualitative Hcg negative (Negative) Vital Signs: Vital Signs Date Time Temp Pulse Resp B/P (MAP) Pulse Ox O2 Delivery O2 Flow Rate FiO2 10/18/20 18:30 98.2 73 16 178/140 (153) 96 Room Air 98.2 EKG: EKG: [] Radiology/Procedures: Radiology/Procedures: [] Course & Med Decision Making: Course & Med Decision Making Pertinent Labs and Imaging studies reviewed. (See chart for details) This is a 30-year-old female patient presented to the ED today with dysmenorrhea, this is a chronic condition on the patient. She missed her Depo shot a month ago. She states the Depo shots usually reduces the cramping. Negative urine hCG, she was given Toradol and Depo shot in the ED and discharged. Lauren Disclaimer: Dragtamara Disclaimer: This electronic medical record was generated, in whole or in part, using a voice recognition dictation system. Departure Departure Impression: Primary Impression: Dysmenorrhea Disposition: 01 DC HOME SELF CARE/HOMELESS Condition: STABLE Referrals: UNKNOWN PCP NAME (PCP) EULALIO CARUSO MD follow up with your doctor in 1 week Patient Instructions: Dysmenorrhea, [id number] Additional Instructions: You were evaluated in the emergency room for painful cramping. You got a Depo shot in the emergency room. You can take [id number] medicines as needed for pain. Follow-up with your own doctor specifically HOME HEALTH OUTREACH COORDINATOR in the course of this week SUN LI APRN Oct 18, 2020 19:36
[2020-10-18 19:55] VITALS: BP 124/72
== END 2020-10-18 19:55 | disposition home or self-care (01) ==
LOC: ER 18:01
DX: N94.6 Dysmenorrhea, unspecified (principal); R10.9 Unspecified abdominal pain; F17.200 Nicotine dependence, unspecified, uncomplicated; F12.90 Cannabis use, unspecified, uncomplicated; Z90.49 Acquired absence of other specified parts of digestive tract; Z98.890 Other specified postprocedural states; Z91.010 Allergy to peanuts; Z88.5 Allergy status to narcotic agent; Z91.040 Latex allergy status
CPT/HCPCS: 81001; 81025; 96372; 99284; J1050; J1885